=== PATIENT | male | born 1935 | race Caucasian/White ===

== ENCOUNTER 2016-12-07 14:36 | Inpatient (IN) | payer MEDICARE, BC ==
[2016-12-07] MEDS ORDERED: NORMAL SALINE 500 ML IV ONE (14:49)
--- NOTE | 2016-12-07 14:49 | ER Document Report ---
ED Medical Screen (RME) - General Stated Complaint: ABDOMINAL PAIN Notes: onset: Sunday night Admits to abdominal pain and distension with heart burn and emesis. Denies hematemesis or hematochezia. Constant pressure Last BM: this AM, normal, soft. denies BRBPR, dark stool bowel sounds present, firm abdomen and tender without rebound tenderness PMH: a fib, HTN, CKD, DM, diverticulitis colonscopy over 5 years ago that was normal I have greeted and performed a rapid initial assessment of this patient. A comprehensive ED assessment and evaluation of the patient, analysis of test results and completion of the medical decision making process will be conducted by additional ED providers. TRAVEL OUTSIDE OF THE [place] IN LAST 30 DAYS: No - Related Data Allergies/Adverse Reactions: enalapril maleate [From Vasotec] Allergy (Unknown, Verified 06/24/14 08:20) hydrochlorothiazide [Hydrochlorothiazide] Allergy (Unknown, Verified 06/24/14 08 :20) meperidine HCl [From Demerol] Allergy (Unknown, Verified 06/24/14 08:20) niacin [Niacin] Allergy (Unknown, Verified 06/24/14 08:20) nisoldipine [From Sular] Allergy (Unknown, Verified 06/24/14 08:20) ramolazme Allergy (Unknown, Uncoded 06/24/14 08:20) Past Medical History - Past Medical History Cardiac Medical History: Reports: Hx Atrial Fibrillation, Hx Hypercholesterolemia, Hx Hypertension Denies: Hx Coronary Artery Disease, Hx Heart Attack Pulmonary Medical History: Reports: Hx Bronchitis Denies: Hx Asthma, Hx COPD, Hx Pneumonia, Hx Tuberculosis Neurological Medical History: Denies: Hx Cerebrovascular Accident, Hx Seizures Endocrine Medical History: Reports: Hx Diabetes Mellitus Type 2 - BORDERLINE GI Medical History: Reports: Hx Diverticulitis Musculoskeltal Medical History: Reports Hx Arthritis Past Surgical History: Reports: Hx Cardiac Catheterization - 2x stents, Hx Cardiac Surgery - pacemaker, Hx Cholecystectomy, Hx Coronary Stent, Hx Pacemaker - Immunizations Hx Diphtheria, Pertussis, Tetanus Vaccination: No - UNSURE
[2016-12-07 15:30] LABS: ABSOLUTE LYMPHOCYTES (AUTO) 1.1 10^3/uL (0.5-4.7); ABSOLUTE MONOCYTES (AUTO) 1.2 10^3/uL (0.1-1.4); ABSOLUTE NEUT (AUTO) 9.6 10^3/uL (1.7-8.2); BASOPHILS % (AUTO) 0.3 % (0-2); EOSINOPHILS % (AUTO) 0.3 % (0-6); HEMATOCRIT 43.9 % (37.9-51.0); HEMOGLOBIN 14.8 g/dL (13.5-17.0); HGB HCT DIFFERENCE 0.5; LYMPHOCYTES % (AUTO) 9.4 % (13-45); MEAN CORPUSCULAR HEMOGLOBIN 29.3 pg (27.0-33.4); MEAN CORPUSCULAR HGB CONC 33.6 g/dL (32.0-36.0); MEAN CORPUSCULAR VOLUME 87 fl (80-97); MONOCYTES % (AUTO) 10.3 % (3-13); RED BLOOD COUNT 5.04 10^6/uL (4.35-5.55); RED CELL DISTRIBUTION WIDTH 15.3 % (11.5-14.0); SEGMENTED NEUTROPHILS % (AUTO) 79.7 % (42-78)
[2016-12-07 15:43] LABS: ALANINE AMINOTRANSFERASE 32 U/L (21-72); ALBUMIN 4.1 g/dL (3.5-5.0); ALKALINE PHOSPHATASE 133 U/L (38-126); ANION GAP 13 (5-19); ASPARTATE AMINO TRANSFERASE 40 U/L (17-59); BILIRUBIN,TOTAL 1.4 mg/dL (0.2-1.3); BLOOD UREA NITROGEN 33 mg/dL (7-20); CALCIUM 10.6 mg/dL (8.4-10.2); CARBON DIOXIDE 26 mmol/L (22-30); CHLORIDE 95 mmol/L (98-107); CREATININE RESULT 1.17 mg/dL (0.52-1.25); GLUCOSE 137 mg/dL (75-110); LIPASE 874.1 U/L (23-300); POTASSIUM 4.8 mmol/L (3.6-5.0); SODIUM 134.4 mmol/L (137-145); TOTAL PROTEIN 7.7 g/dL (6.3-8.2)
--- NOTE | 2016-12-07 15:50 | ER Document Report ---
ED GI/ - General Mode of Arrival: Ambulatory Information source: Patient TRAVEL OUTSIDE OF THE [place] IN LAST 30 DAYS: No - HPI Patient complains to provider of: Other - see narrative <CARLA GUAMAN - Last Filed: 12/07/16 22:35> <GORDON CONN - Last Filed: 12/13/16 22:41> - General Chief Complaint: Abdominal Pain Stated Complaint: ABDOMINAL PAIN Notes: Patient is an 81-year-old male that presents to the emergency department today with complaints of abdominal pain. Patient states his pain began 2 nights ago after dinner. Patient states the pain has been constant since it's onset and has been increasing in severity. Patient has a decreased appetite. Patient states he has had increasing abdominal distension along with nausea, vomiting, and chills but denies any fevers. (CARLA GUAMAN) - Related Data Allergies/Adverse Reactions: enalapril maleate [From Vasotec] Allergy (Unknown, Verified 12/08/16 00:36) meperidine HCl [From Demerol] Allergy (Unknown, Verified 12/08/16 00:36) niacin [Niacin] Allergy (Unknown, Verified 12/07/16 14:45) nisoldipine [From Sular] Allergy (Unknown, Verified 12/07/16 14:45) ramolazme Allergy (Unknown, Uncoded 12/07/16 14:45) Home Medications: Current Home Medications Finasteride [Proscar 5 mg Tablet] 5 mg PO DAILY 12/07/16 [History] Metoprolol Tartrate [Lopressor 100 mg Tablet] 100 mg PO BID 12/07/16 [History] Valsartan/Hydrochlorothiazide [Diovan Hct 160-12.5 mg Tab] 0.5 tab PO DAILY 06/17 [History] Warfarin Sodium [Coumadin 5 mg Tablet] 5 mg PO SUMOTUTHFRSA 12/07/16 [History] Warfarin Sodium [Coumadin 7.5 mg Tablet] 7.5 mg PO WE 12/07/16 [History] Aspirin [Aspirin EC] 81 mg PO DAILY 12/08/16 [History] Atorvastatin Calcium [Lipitor 20 mg Tablet] 20 mg PO QHS 12/08/16 [History] Digoxin [Lanoxin 0.125 mg Tablet] 0.125 mg PO DAILY 12/08/16 [History] Omeprazole 20 mg PO DAILYP PRN 12/08/16 [History] Potassium Chloride 10 meq PO DAILY 12/08/16 [History] Past Medical History - General Information source: Patient - Social History Smoking Status: Never Smoker Cigarette use (# per day): No Chew tobacco use (# tins/day): No Frequency of alcohol use: None Drug Abuse: None Lives with: Family Family History: Reviewed & Not Pertinent Patient has suicidal ideation: No Patient has homicidal ideation: No - Past Medical History Cardiac Medical History: Reports: Hx Atrial Fibrillation, Hx Hypercholesterolemia, Hx Hypertension Pulmonary Medical History: Reports: Hx Bronchitis Endocrine Medical History: Reports: Hx Diabetes Mellitus Type 2 - BORDERLINE GI Medical History: Reports: Hx Diverticulitis Musculoskeltal Medical History: Reports Hx Arthritis Past Surgical History: Reports: Hx Cardiac Catheterization - 2x stents, Hx Cardiac Surgery - pacemaker, Hx Cholecystectomy, Hx Coronary Stent, Hx Pacemaker - Immunizations Hx Diphtheria, Pertussis, Tetanus Vaccination: No - UNSURE Hx Pneumococcal Vaccination: 07/01/11 <CARLA GUAMAN - Last Filed: 12/07/16 22:35> Review of Systems - Review of Systems Constitutional: See HPI, Fever EENT: No symptoms reported Cardiovascular: No symptoms reported Respiratory: No symptoms reported Gastrointestinal: See HPI, Abdomen distended, Abdominal pain, Nausea, Vomiting Genitourinary: No symptoms reported Male Genitourinary: No symptoms reported Musculoskeletal: No symptoms reported Skin: No symptoms reported Hematologic/Lymphatic: No symptoms reported Neurological/Psychological: No symptoms reported -: Yes All other systems reviewed and negative <CARLA GUAMAN - Last Filed: 12/07/16 22:35> Physical Exam - General General appearance: Appears well, Alert In distress: None - HEENT Head: Normocephalic, Atraumatic Eyes: Normal Conjunctiva: Normal Extraocular movements intact: Yes - Respiratory Respiratory status: No respiratory distress Chest status: Nontender Breath sounds: Normal Chest palpation: Normal - Cardiovascular Rhythm: Regular Heart sounds: Normal auscultation Murmur: No - Abdominal Inspection: Healed incision Distension: Distended Bowel sounds: Hypoactive - Extremities General upper extremity: Normal inspection, Normal ROM. No: Edema General lower extremity: Normal inspection, Normal ROM. No: Edema - Neurological Neuro grossly intact: Yes Cognition: Normal Orientation: AAOx4 Speech: Normal - Psychological Associated symptoms: Normal affect, Normal mood - Skin Skin Temperature: Warm Skin Moisture: Dry Skin Color: Normal <CARLA GUAMAN - Last Filed: 12/07/16 22:35> Course - Laboratory Result Diagrams: 12/07/16 15:00 12/07/16 15:00 <CARLA GUAMAN - Last Filed: 12/07/16 22:35> - Laboratory Result Diagrams: 12/12/16 04:04 12/12/16 04:04 <GORDON CONN - Last Filed: 12/13/16 22:41> - Re-evaluation Re-evalutation: 12/07/16 17:20 I personally performed the services described in the documentation, reviewed and edited the documentation which was dictated to my scribe in my presence, and it accurately records my words and actions. presents to the emergency department with a chief complaint of abdominal distention pain and vomiting unable to keep anything down for 2 days. He had a portion of his colon removed from diverticulitis back in 2002 otherwise he's had a gallbladder removal. Never had a mild suction before on examination he's distended decreased bowel sounds to absent tympanic acute bowel obstruction on x -ray. Troponin G-tube fluids pain medication talk to surgery Dr. Garber at [phone]. He states to get a CAT scan and call him back on the results are back. 12/07/16 19:[address] Garber [place] [address] results states admit him for bowel pain bowel shocks of pancreatitis to medicine and he will be on consultation. Patient is had about a liter of fluids out of his NG tube, pain and nausea is better controlled Dr Boyce contacted at 191 accepted patient at 20:13 12/07/16 20:13 (GORDON CONN) - Vital Signs Vital signs: Temp Pulse Resp BP Pulse Ox 97.5 F 81 18 136/56 H 99 12/13/16 14:51 12/13/16 14:51 12/13/16 14:51 12/13/16 14:51 12/13/16 14:51 - Laboratory Laboratory results interpreted by me: 12/07/16 12/07/16 12/07/16 15:00 15:00 15:05 WBC 12.0 H RDW 15.3 H Seg Neutrophils % 79.7 H Lymphocytes % 9.4 L Absolute Neutrophils 9.6 H Sodium 134.4 L Chloride 95 L BUN 33 H Glucose 137 H Calcium 10.6 H Total Bilirubin 1.4 H Alkaline Phosphatase 133 H Lipase 874.1 H Urine Protein >=500 H Urine Bilirubin SMALL H Urine Urobilinogen 2.0 H Critical Care Note - Critical Care Note Total time excluding time spent on procedures (mins): 45 <GORDON CONN - Last Filed: 12/13/16 22:41> Discharge <CARLA GUAMAN - Last Filed: 12/07/16 22:35> - Discharge Admitting Provider: Hospitalist Unit Admitted: [facility] <GORDON CONN - Last Filed: 12/13/16 22:41> - Discharge Clinical Impression: Acute pancreatitis, acute bowel obstruction Condition: Stable Disposition: ADMITTED INPATIENT Scribe Documentation - Scribe Written by Valencia:: Valencia Vitale, 12/07/2016 2258 acting as scribe for :: [place] <CARLA GUAMAN - Last Filed: 12/07/16 22:35>
[2016-12-07 16:22] LABS: APPEARANCE,URINE SLIGHTLY-CLOUDY; BILIRUBIN,URINE SMALL (NEGATIVE); GLUCOSE, URINE NEGATIVE (NEGATIVE); KETONES,URINE NEGATIVE (NEGATIVE); LEUKOCYTE ESTERASE,URINE NEGATIVE (NEGATIVE); NITRITE,URINE NEGATIVE (NEGATIVE); PROTEIN,URINE >=500 mg/dL (NEGATIVE); URINE SPECIFIC GRAVITY 1.027
[2016-12-07] MEDS ORDERED: FENTANYL CITRATE INJ/PF 100 MCG/2 ML AMPUL IV ONE (17:18)
[2016-12-07] MEDS ORDERED: NORMAL SALINE 1000 ML 500 ML IV ONE (17:18)
--- NOTE | 2016-12-07 19:45 | PDOC CONSULTATION ---
Consultation Consult Date: 12/07/16 Consult reason:: Abdominal pain History of Present Illness Admission Date/PCP: AMBER DIANE, History of Present Illness: ROHIT [place] MIRELA is a 81 year old male Presenting with 2 day history of diffuse epigastric abdominal pain that has been worsening followed by abdominal distention with multiple episodes of nausea and vomiting. Patient had a small bowel movement today. Does not think he has been passing any gas today. Denies any prior history of this sort of pain in the past. He denies any alcohol abuse he has had the cholecystectomy in the remote past. He does have a history of hypertriglyceridemia. No history of trauma. Patient does have a history of partial colon resection for diverticulitis in the remote past as well as cholecystectomy in the remote past. Patient does have atrial fibrillation and he is on a pacemaker. He is on chronic Coumadin therapy. No history of thromboembolic disease however. Past Medical History Cardiac Medical History: Reports: Atrial Fibrillation, Hyperlipidema, Hypertension Denies: Coronary Artery Disease, Myocardial Infarction Pulmonary Medical History: Reports: Bronchitis Denies: Asthma, Chronic Obstructive Pulmonary Disease (COPD), Pneumonia, Tuberculosis Neurological Medical History: Denies: Seizures Endocrine Medical History: Reports: Diabetes Mellitus Type 2 - BORDERLINE GI Medical History: Reports: Diverticulitis, Gastroesophageal Reflux Disease Musculoskeltal Medical History: Reports: Arthritis Hematology: Denies: Anemia Past Surgical History Past Surgical History: Reports: Cardiac Catheterization - 2x stents, Cholecystectomy, Coronary Stent, Pacemaker Social History Smoking Status: Never Smoker Frequency of Alcohol Use: None Hx Recreational Drug Use: No Hx Prescription Drug Abuse: No Family History Family History: Reviewed & Not Pertinent Parental Family History Reviewed: No Children Family History Reviewed: No Sibling(s) Family History Reviewed.: No Medication/Allergy Home Medications: Finasteride [Proscar 5 mg Tablet] 5 mg PO DAILY 12/07/16 Metoprolol Tartrate [Lopressor 100 mg Tablet] 100 mg PO BID 12/07/16 Valsartan/Hydrochlorothiazide [Diovan Hct 160-12.5 mg Tab] 1 tab PO DAILY Allergies/Adverse Reactions: enalapril maleate [From Vasotec] Allergy (Unknown, Verified 12/07/16 14:45) hydrochlorothiazide [Hydrochlorothiazide] Allergy (Unknown, Verified 12/07/16 14 :45) meperidine HCl [From Demerol] Allergy (Unknown, Verified 12/07/16 14:45) niacin [Niacin] Allergy (Unknown, Verified 12/07/16 14:45) nisoldipine [From Sular] Allergy (Unknown, Verified 12/07/16 14:45) ramolazme Allergy (Unknown, Uncoded 12/07/16 14:45) Physical Exam Vital Signs: Intake & Output 12/06/16 12/07/16 12/08/16 06:59 06:59 06:59 Output Total 250 Balance -250 Weight 77.9 kg General appearance: PRESENT: no acute distress, cooperative Respiratory exam: PRESENT: clear to auscultation catherine Cardiovascular exam: PRESENT: RRR GI/Abdominal exam: PRESENT: other - Soft, distended, diffuse upper abdominal tenderness without peritoneal signs. Markedly diminished bowel sounds. Extremities exam: PRESENT: other - No swelling no tenderness. Results Laboratory Results: 12/07/16 15:00 12/07/16 15:00 12/07/16 12/07/16 12/07/16 15:00 15:00 15:05 WBC 12.0 H RBC 5.04 Hgb 14.8 Hct 43.9 MCV 87 MCH 29.3 MCHC 33.6 RDW 15.3 H Plt Count 254 Seg Neutrophils % 79.7 H Lymphocytes % 9.4 L Monocytes % 10.3 Eosinophils % 0.3 Basophils % 0.3 Absolute Neutrophils 9.6 H Absolute Lymphocytes 1.1 Absolute Monocytes 1.2 Absolute Eosinophils 0.0 Absolute Basophils 0.0 Sodium 134.4 L Potassium 4.8 Chloride 95 L Carbon Dioxide 26 Anion Gap 13 BUN 33 H Creatinine 1.17 Est GFR ( Amer) > 60 Est GFR (Non-Af Amer) > 60 Glucose 137 H Calcium 10.6 H Total Bilirubin 1.4 H AST 40 ALT 32 Alkaline Phosphatase 133 H Total Protein 7.7 Albumin 4.1 Lipase 874.1 H Urine Color DARK YELLOW Urine Appearance SLIGHTLY-CLOUDY Urine pH 5.0 Ur Specific [place] 1.027 Urine Protein >=500 H Urine Glucose (UA) NEGATIVE Urine Ketones NEGATIVE Urine Blood NEGATIVE Urine Nitrite NEGATIVE Ur Leukocyte Esterase NEGATIVE Urine WBC (Auto) 2 Urine RBC (Auto) 2 Impressions: KUB X-Ray 12/07/16 00:00 IMPRESSION: NASOGASTRIC TUBE WITH THE TIP IN THE STOMACH. Acute Abdomen Series 12/07/16 14:49 IMPRESSION: Findings consistent with a small bowel obstruction. Small right pleural effusion is identified and I cannot exclude some associated atelectasis or infiltrate in the right lung base. Other findings as noted above Abdomen/Pelvis CT 12/07/16 17:22 IMPRESSION: Findings consistent with a small bowel obstruction as noted above. A tiny amount of perihepatic and perisplenic ascitic fluid is identified and a small amount of ascitic fluid is identified in the pelvis an small right inguinal hernia. There are more normal caliber distal small bowel loops without a definite transition point being identified. Other findings as noted above Assessment & Plan - Diagnosis (1) Pancreatitis Qualifiers: Chronicity: acute Is this a current diagnosis for this admission?: YesPlan: Likely pancreatitis with associated ileus. Likely due to hypertriglyceridemia. Lack of oral contrast makes the CT scan difficult to interpret for possible bowel obstruction. Recommend admission to the medical service for IV fluids, pain control and pancreatic rest. General surgery will follow along. If the patient does not make progress in the next couple days will consider repeat scan with oral contrast. Encourage activity.
[2016-12-07] MEDS ORDERED: NORMAL SALINE 1000 ML 2,000 ML IV ONE (22:10)
[2016-12-07] MEDS ORDERED: ACETAMINOPHEN 650 MG SUPP.RECT PR PRN (22:28)
[2016-12-07] MEDS ORDERED: PHARMACY COMMUNICATION ORDER MC NR (22:30)
[2016-12-07] MEDS ORDERED: PROMETHAZINE HCL INJ 25 MG/1 ML VIAL IV PRN (22:35)
[2016-12-07] MEDS ORDERED: MORPHINE SULFATE 10 MG/ML INJ IV PRN (22:36)
[2016-12-07] MEDS ORDERED: GLUCAGON,HUMAN RECOMB 1 MG INJ IM PRN (22:40)
[2016-12-07] MEDS ORDERED: DEXTROSE 40% GEL 15 GM TUBE NG PRN ×2 (22:40)
[2016-12-07] MEDS ORDERED: DEXTROSE 50%-WATER 25 GM/50 ML DISP.SYRIN IV PRN ×2 (22:40)
[2016-12-07] MEDS ORDERED: INSULIN LISPRO 100 UNIT/ML 3 ML VIAL SUBCUT PRN (22:40)
--- NOTE | 2016-12-07 22:52 | PDOC H&P ---
History of Present Illness Admission Date/PCP: 12/07/16 20:45 Dr. Mercy NIELSEN Patient complains of: abd pain, n/v History of Present Illness: 81-year-old male, with underlying congestive heart failure, uncertain if systolic and/or diastolic, along with chronic atrial fibrillation, on chronic Coumadin for same, hypertension, borderline diabetes mellitus, and arthritis, who presents to the emergency room for evaluation of approximately 36 hour history of intermittent at times pronounced cramping diffuse abdominal pain. Worse with virtually any by mouth intake. Positive nausea and vomiting, without blood or coffee grounds emesis. Small bowel movement earlier this morning. No flatus for the past 24 hours. No fever. Occasional chills, but states this is not unusual for him. No chest pain. Prior abdominal surgery includes segmental colon resection for diverticulitis, along with cholecystectomy. Has never had NG tube placed before. Patient has been discussed with emergency room physician who evaluated the patient. Nasogastric tube placed by emergency room physician. Already more than 1 L of cloudy bilious fluid suctioned. Patient states he's feeling a bit better, with cramping abdominal pain much decreased. Has been seen by surgery already; note reviewed.. Review of my in-hospital control tower radio operator phone reveals call was placed at 7:13 PM by emergency room physician, during evening checkout rounds with day hospitalist team. Call back to ER physician placed at 7:34 PM. No answer. Message was left with emergency room wine steward/stewardess to please notify emergency room physician I had attempted to contact her, per my usual protocol. I first spoke with emergency room physician about this patient at 8:11 PM. Laboratory results are listed in [facility] and are reviewed. X-ray summary results are listed below, with full report(s) reviewed. . Social history/personal habits: . Lives with . Retired. Has children. No use of tobacco alcohol or illicit drugs. Allergies/adverse reactions are listed in [facility] and are reviewed. Home medications are reviewed by discussion with patient and are to be reconciled by nursing staff in [facility]. Home medications initially autopopulated into [facility] may not accurately reflect patient's true medications, dosages, and/or frequencies. Unfortunately, patient uncertain of all his medications/dosages/frequencies. Order has been entered for staff to contact family, outpatient physician, and/ or pharmacy to more accurately determine medications, dosages, and frequencies and to contact physician when that has been accomplished. REVIEW OF SYSTEMS: Constitutional: See history and present illness. Eyes: Wears glasses. ENT: No swallowing problems or complaints. Partial hearing loss. Pulmonary: No current complaints. Cardiovascular: No current complaints, including chest pain. Gastrointestinal: See history and present illness. Skin: No current complaints, including rashes. Hematologic: Easy bruising. Neurologic: No current complaints, including numbness or tingling. Musculoskeletal: Joint pain from arthritis. Psychiatric: No current complaints, including anxiety or depression. Endocrine: No current complaints, including polyuria. Genitourinary: No current complaints, including dysuria. PHYSICAL EXAMINATION: 5 feet 9 inches tall. 77.9 kg. BMI 25.4 kg/m. Temperature not recorded on chart; skin feels normothermic. Blood pressure 125/54. Pulse 60 and regular. 95% saturation on room air. Respirations are 18 and unlabored. Well-nourished well-developed elderly male appearing a bit younger than his stated age. Pleasant awake alert and cooperative. No obvious distress other than perhaps mildly anxious. Skin is warm and dry. No grossly obvious evidence of rash in areas of skin examined. No subcutaneous nodules palpated. ENT: Hearing grossly normal Mildly hard of hearing to normal conversation. Tongue midline on protrusion pink and slightly tacky. Nasogastric tube is in place, having drained just over 1 L of cloudy bilious material. No obvious blood or coffee ground material. Eyes: No scleral icterus. Pupils equal and reactive to light at 4 mm. Falkner conjunctivae. Neck is supple and nontender to gentle active range of motion and palpation. Midline trachea. No palpable thyroid nodule mass enlargement or tenderness. Lymphatic: No palpable cervical or clavicular nodes. Neck and lymphatic exams limited by patient body habitus. Psychiatric: Reasonable insight into acute and chronic medical issues. Oriented to time location and why here. Lungs: Auscultation reveals clear and equal breath sounds bilaterally. No use of accessory respiratory muscles. Cardiovascular: Heart regular rate and rhythm, without gallop murmur or rub. No carotid or abdominal aortic bruits. No ankle or pedal edema. Faintly palpable dorsalis pedis pulses. Abdomen: soft, , somewhat distended with positive bowel sounds. Unable to adequately evaluate abdomen for masses or organomegaly due to distention. Scant abdominal discomfort to palpation. Certainly no evidence of guarding or peritoneal signs. Extremities: Feet are warm and dry. No calf tenderness to compression. No grossly obvious visual evidence of calf swelling. Gentle manipulation of lower extremities fails to reveal any obvious evidence of injury or instability to knees hips or ankles. Neurologic: Moves upper extremities grossly normally. Patellar reflexes absent. Absent Babinski. Light touch is intact at feet. Dorsiflexion and plantarflexion of feet 5 / 5 and symmetric. Past Medical History Cardiac Medical History: Reports: Atrial Fibrillation, Hyperlipidema, Hypertension Denies: Coronary Artery Disease, DVT, Myocardial Infarction, Pulmonary Embolism Pulmonary Medical History: Reports: Bronchitis Denies: Asthma, Chronic Obstructive Pulmonary Disease (COPD), Pneumonia, Tuberculosis Neurological Medical History: Denies: Hemorrhagic CVA, Ischemic CVA, Seizures Endocrine Medical History: Reports: Diabetes Mellitus Type 2 - BORDERLINE Denies: Diabetes Mellitus Type 1, Hyperthyroidism, Hypothyroidism Renal/ Medical History: Reports: Other - Occasional "kidney problems," according to patient. GI Medical History: Reports: Diverticulitis - Segmental colectomy for same., Gastroesophageal Reflux Disease Denies: Cirrhosis, Hepatitis, Peptic Ulcer Disease Musculoskeltal Medical History: Reports: Arthritis Psychiatric Medical History: Denies: Alcohol Dependency, Depression, General Anxiety Disorder, Substance Abuse, Tobacco Dependency Hematology: Reports: Other - Easy bruising Denies: Anemia Infectious Medical History: Denies: Hepatitis B, Hepatitis C Past Surgical History Past Surgical History: Reports: Cardiac Catheterization - 2x stents, Cholecystectomy, Coronary Stent, Pacemaker, Other - Segmental colectomy for diverticulitis Social History Information Source: Patient, Emergency Med Personnel, [facility] Records Lives with: Spouse/Significant other Smoking Status: Never Smoker Frequency of Alcohol Use: None Hx Recreational Drug Use: No Hx Prescription Drug Abuse: No - Advance Directive Resuscitation Status: Full Code Surrogate healthcare decision maker:: Family History Family History: Reviewed & Not Pertinent Parental Family History Reviewed: Yes Children Family History Reviewed: Yes Sibling(s) Family History Reviewed.: Yes Medication/Allergy Home Medications: RX: Finasteride [Proscar 5 mg Tablet] 5 mg PO DAILY 12/07/16 RX: Metoprolol Tartrate [Lopressor 100 mg Tablet] 100 mg PO BID 12/07/16 RX: Valsartan/Hydrochlorothiazide [Diovan Hct 160-12.5 mg Tab] 0.5 tab PO DAILY 12/07/16 RX: Warfarin Sodium [Coumadin 5 mg Tablet] 5 mg PO SUMOTUTHFRSA 12/07/16 RX: Warfarin Sodium [Coumadin 7.5 mg Tablet] 7.5 mg PO WE 12/07/16 RX: Aspirin [Aspirin EC] 81 mg PO DAILY 12/08/16 RX: Atorvastatin Calcium [Lipitor 20 mg Tablet] 20 mg PO QHS 12/08/16 RX: Digoxin [Lanoxin 0.125 mg Tablet] 0.125 mg PO DAILY 12/08/16 RX: Omeprazole 20 mg PO DAILYP PRN 12/08/16 RX: Potassium Chloride 10 meq PO DAILY 12/08/16 Allergies/Adverse Reactions: enalapril maleate [From Vasotec] Allergy (Unknown, Verified 12/08/16 00:36) meperidine HCl [From Demerol] Allergy (Unknown, Verified 12/08/16 00:36) niacin [Niacin] Allergy (Unknown, Verified 12/07/16 14:45) nisoldipine [From Sular] Allergy (Unknown, Verified 12/07/16 14:45) ramolazme Allergy (Unknown, Uncoded 12/07/16 14:45) Physical Exam Vital Signs: Temp Pulse Resp BP Pulse Ox 18 125/54 L 97 12/07/16 21:01 12/07/16 21:01 12/07/16 21:01 Results Impressions: KUB X-Ray 12/07/16 00:00 IMPRESSION: NASOGASTRIC TUBE WITH THE TIP IN THE STOMACH. Acute Abdomen Series 12/07/16 14:49 IMPRESSION: Findings consistent with a small bowel obstruction. Small right pleural effusion is identified and I cannot exclude some associated atelectasis or infiltrate in the right lung base. Other findings as noted above Abdomen/Pelvis CT 12/07/16 17:22 IMPRESSION: Findings consistent with a small bowel obstruction as noted above. A tiny amount of perihepatic and perisplenic ascitic fluid is identified and a small amount of ascitic fluid is identified in the pelvis an small right inguinal hernia. There are more normal caliber distal small bowel loops without a definite transition point being identified. Other findings as noted above Assessment & Plan - Diagnosis (1) Elevated LFTs Is this a current diagnosis for this admission?: YesPlan: Follow-up chemistry. Denies underlying chronic biliary disease. (2) SBO (small bowel obstruction) Is this a current diagnosis for this admission?: YesPlan: Has been seen by surgery, who will follow. Nasogastric tube. Vigorous IV fluid hydration. Strict intake and output. Ice chips. IV Pepcid for gastritis prophylaxis. When necessary medications for pain and nausea and vomiting. I have strongly encouraged patient not to get out of bed without notifying staff , to avoid a fall with injury. Knee high SCDs for DVT prophylaxis; with patient on Coumadin, will forego Lovenox or heparin at this point in time. Impression and plans were discussed with patient, who concurs. Time spent in evaluation and management of patient: 65 minutes. (3) Anticoagulated Is this a current diagnosis for this admission?: YesPlan: PT/INR pending. May need to proceed with parenteral anticoagulation. (4) Atrial fibrillation Qualifiers: Atrial fibrillation type: chronic Qualified Code(s): I48.2 - Chronic atrial fibrillation Is this a current diagnosis for this admission?: YesPlan: Resume home medications as appropriate once these have been determined and reviewed. (5) Congestive heart failure (CHF) Qualifiers: Congestive heart failure type: unspecified congestive heart failure type Congestive heart failure chronicity: chronic Qualified Code(s): I50.9 - Heart failure, unspecified Is this a current diagnosis for this admission?: YesPlan: No evidence of exacerbation of same.Resume home medications as appropriate once these have been determined and reviewed. Parenteral medications as necessary. (6) Hypertension Qualifiers: Hypertension type: essential hypertension Qualified Code(s): I10 - Essential (primary) hypertension Is this a current diagnosis for this admission?: YesPlan: Resume home medications as appropriate once these have been determined and reviewed. Parenteral medications if necessary. - Inpatient Certification Based on my medical assessment, after consideration of the patient's comorbidities, presenting symptoms, or acuity I expect that the services needed warrant INPATIENT care.: Yes I certify that my determination is in accordance with my understanding of Medicare's requirements for reasonable and necessary INPATIENT services [42 CFR 412.3e].: Yes Medical Necessity: Need Close Monitoring Due to Risk of Patient Decompensation, Need For IV Fluids, Need For Continuous Telemetry Monitoring, Risk of Complication if Not Cared For in Hospital, Risk of Diagnosis Which Will Require Inpatient Eval/Care/Monitoring Post Hospital Care: D/C or Transfer Summary
[2016-12-08 00:01] LABS: ANION GAP 13 (5-19); BLOOD UREA NITROGEN 33 mg/dL (7-20); CALCIUM 9.9 mg/dL (8.4-10.2); CARBON DIOXIDE 24 mmol/L (22-30); CHLORIDE 101 mmol/L (98-107); CREATININE RESULT 1.04 mg/dL (0.52-1.25); GLUCOSE 114 mg/dL (75-110); PARTIAL THROMBOPLASTIN TIME 44.6 SEC (23.5-35.8); POTASSIUM 4.7 mmol/L (3.6-5.0); SODIUM 137.6 mmol/L (137-145)
[2016-12-08] MEDS: NORMAL SALINE 1000 ML 1,000 ML IV PRN ×5 (00:46→19:33)
[2016-12-08 06:59] LABS: ABSOLUTE EOSINOPHILS # (AUTO) 0.1 10^3/uL (0.0-0.6); ABSOLUTE LYMPHOCYTES (AUTO) 0.9 10^3/uL (0.5-4.7); ABSOLUTE MONOCYTES (AUTO) 0.8 10^3/uL (0.1-1.4); ABSOLUTE NEUT (AUTO) 4.1 10^3/uL (1.7-8.2); BASOPHILS % (AUTO) 0.2 % (0-2); EOSINOPHILS % (AUTO) 0.9 % (0-6); HEMATOCRIT 37.5 % (37.9-51.0); HEMOGLOBIN 12.8 g/dL (13.5-17.0); HGB HCT DIFFERENCE 0.9; LYMPHOCYTES % (AUTO) 15.5 % (13-45); MEAN CORPUSCULAR HEMOGLOBIN 29.6 pg (27.0-33.4); MEAN CORPUSCULAR HGB CONC 34.1 g/dL (32.0-36.0); MEAN CORPUSCULAR VOLUME 87 fl (80-97); MONOCYTES % (AUTO) 13.7 % (3-13); RED BLOOD COUNT 4.31 10^6/uL (4.35-5.55); RED CELL DISTRIBUTION WIDTH 15.6 % (11.5-14.0); SEGMENTED NEUTROPHILS % (AUTO) 69.7 % (42-78); WHITE BLOOD COUNT 5.9 10^3/uL (4.0-10.5)
[2016-12-08 07:06] LABS: PROTHROMBIN TIME 37.4 SEC (11.4-15.4)
[2016-12-08 07:17] LABS: ALANINE AMINOTRANSFERASE 40 U/L (21-72); ALBUMIN 2.9 g/dL (3.5-5.0); ALKALINE PHOSPHATASE 113 U/L (38-126); ANION GAP 9 (5-19); ASPARTATE AMINO TRANSFERASE 32 U/L (17-59); BILIRUBIN,TOTAL 0.7 mg/dL (0.2-1.3); BLOOD UREA NITROGEN 27 mg/dL (7-20); CALCIUM 8.8 mg/dL (8.4-10.2); CARBON DIOXIDE 21 mmol/L (22-30); CHLORIDE 107 mmol/L (98-107); GLUCOSE 98 mg/dL (75-110); POTASSIUM 4.1 mmol/L (3.6-5.0); SODIUM 137.4 mmol/L (137-145); TOTAL PROTEIN 5.8 g/dL (6.3-8.2)
[2016-12-08] MEDS: ENOXAPARIN SODIUM INJ 40 MG/0.4 ML DISP.SYRIN SUBCUT SCH (09:34)
[2016-12-08] MEDS ORDERED: FAMOTIDINE INJ/PF 20 MG/2 ML SDV IV SCH (10:00)
[2016-12-08] MEDS ORDERED: METOPROLOL TARTRATE PF/INJ 5 MG/5 ML SDV IV SCH (10:00)
--- NOTE | 2016-12-08 11:27 | PDOC PROGRESS REPORT ---
Subjective Progress Note for:: 12/08/16 Subjective:: FEELING BETTER PASSED FLATUS Physical Exam Vital Signs: Temp Pulse Resp BP Pulse Ox 97.5 F 127 H 20 144/57 H 97 12/08/16 07:55 12/08/16 07:55 12/08/16 07:55 12/08/16 07:55 12/08/16 07:55 Intake & Output 12/07/16 12/08/16 12/09/16 06:59 06:59 06:59 Intake Total 2701 Output Total 835 Balance 1866 Weight 81.6 kg GI/Abdominal exam: PRESENT: other - Abdomen - soft, nontender no distention , non tender, Results Laboratory Results: 12/08/16 06:49 12/08/16 06:49 12/07/16 12/08/16 12/08/16 23:30 06:49 06:49 WBC 5.9 RBC 4.31 L Hgb 12.8 L Hct 37.5 L MCV 87 MCH 29.6 MCHC 34.1 RDW 15.6 H Plt Count 191 Seg Neutrophils % 69.7 Lymphocytes % 15.5 Monocytes % 13.7 H Eosinophils % 0.9 Basophils % 0.2 Absolute Neutrophils 4.1 Absolute Lymphocytes 0.9 Absolute Monocytes 0.8 Absolute Eosinophils 0.1 Absolute Basophils 0.0 Sodium 137.6 137.4 Potassium 4.7 4.1 Chloride 101 107 Carbon Dioxide 24 21 L Anion Gap 13 9 BUN 33 H 27 H Creatinine 1.04 0.90 Est GFR ( Amer) > 60 > 60 Est GFR (Non-Af Amer) > 60 > 60 Glucose 114 H 98 Calcium 9.9 8.8 Total Bilirubin 0.7 AST 32 ALT 40 Alkaline Phosphatase 113 Total Protein 5.8 L Albumin 2.9 L Impressions: Acute Abdomen Series 12/07/16 14:49 IMPRESSION: Findings consistent with a small bowel obstruction. Small right pleural effusion is identified and I cannot exclude some associated atelectasis or infiltrate in the right lung base. Other findings as noted above Abdomen/Pelvis CT 12/07/16 17:22 IMPRESSION: Findings consistent with a small bowel obstruction as noted above. A tiny amount of perihepatic and perisplenic ascitic fluid is identified and a small amount of ascitic fluid is identified in the pelvis an small right inguinal hernia. There are more normal caliber distal small bowel loops without a definite transition point being identified. Other findings as noted above KUB X-Ray 12/07/16 22:32 IMPRESSION: THE TIP OF THE NASOGASTRIC TUBE IN THE STOMACH. Assessment & Plan - Plan Summary Plan Summary: Partial small bowel obstruction - resolving keep NG tube today
--- NOTE | 2016-12-08 13:52 | PDOC PROGRESS REPORT ---
Subjective Progress Note for:: 12/08/16 Subjective:: The patient was seen earlier today on rounds. Patient states that he feels remarkably better than when he came in overnight. The patient does admit to heartburn. The patient denies any nausea, vomiting, diarrhea, shortness of breath, dizziness, chest pain, heart palpitations, fevers, or chills. The patient has remained afebrile. Blood pressures have been in a good range. When prompted the patient voices no other concerns at this time. Review of systems: The rest of the review of systems is negative. Physical Exam Vital Signs: Temp Pulse Resp BP Pulse Ox 97.4 F 71 16 141/56 H 98 12/08/16 11:15 12/08/16 11:15 12/08/16 11:15 12/08/16 11:15 12/08/16 11:15 Intake & Output 12/06/16 12/07/16 12/08/16 23:59 23:59 23:59 Intake Total 2701 Output Total 835 Balance 1866 Weight 79.1 kg 81.6 kg General appearance: PRESENT: no acute distress, cooperative, well-developed, well-nourished Head exam: PRESENT: atraumatic, normocephalic Eye exam: PRESENT: conjunctiva pink, EOMI, PERRLA. ABSENT: scleral icterus Ear exam: PRESENT: normal external ear exam Mouth exam: PRESENT: moist, tongue midline Neck exam: ABSENT: carotid bruit, JVD, lymphadenopathy, thyromegaly Respiratory exam: PRESENT: clear to auscultation catherine, symmetrical, unlabored. ABSENT: rales, rhonchi, tachypnea, wheezes Cardiovascular exam: PRESENT: RRR. ABSENT: diastolic murmur, rubs, systolic murmur Pulses: PRESENT: normal dorsalis pedis pul Vascular exam: PRESENT: normal capillary refill GI/Abdominal exam: PRESENT: normal bowel sounds, soft. ABSENT: distended, guarding, mass, organolmegaly, rebound, tenderness Rectal exam: PRESENT: deferred Extremities exam: PRESENT: full ROM. ABSENT: calf tenderness, clubbing, pedal edema Neurological exam: PRESENT: alert, awake, oriented to person, oriented to place , oriented to time, oriented to situation, CN II-XII grossly intact. ABSENT: motor sensory deficit Psychiatric exam: PRESENT: appropriate affect, normal mood. ABSENT: homicidal ideation, suicidal ideation Skin exam: PRESENT: dry, intact, warm. ABSENT: cyanosis, rash Results Laboratory Results: 12/08/16 06:49 12/08/16 06:49 12/07/16 12/08/16 12/08/16 23:30 06:49 06:49 WBC 5.9 RBC 4.31 L Hgb 12.8 L Hct 37.5 L MCV 87 MCH 29.6 MCHC 34.1 RDW 15.6 H Plt Count 191 Seg Neutrophils % 69.7 Lymphocytes % 15.5 Monocytes % 13.7 H Eosinophils % 0.9 Basophils % 0.2 Absolute Neutrophils 4.1 Absolute Lymphocytes 0.9 Absolute Monocytes 0.8 Absolute Eosinophils 0.1 Absolute Basophils 0.0 Sodium 137.6 137.4 Potassium 4.7 4.1 Chloride 101 107 Carbon Dioxide 24 21 L Anion Gap 13 9 BUN 33 H 27 H Creatinine 1.04 0.90 Est GFR ( Amer) > 60 > 60 Est GFR (Non-Af Amer) > 60 > 60 Glucose 114 H 98 Calcium 9.9 8.8 Total Bilirubin 0.7 AST 32 ALT 40 Alkaline Phosphatase 113 Total Protein 5.8 L Albumin 2.9 L Impressions: Acute Abdomen Series 12/07/16 14:49 IMPRESSION: Findings consistent with a small bowel obstruction. Small right pleural effusion is identified and I cannot exclude some associated atelectasis or infiltrate in the right lung base. Other findings as noted above Abdomen/Pelvis CT 12/07/16 17:22 IMPRESSION: Findings consistent with a small bowel obstruction as noted above. A tiny amount of perihepatic and perisplenic ascitic fluid is identified and a small amount of ascitic fluid is identified in the pelvis an small right inguinal hernia. There are more normal caliber distal small bowel loops without a definite transition point being identified. Other findings as noted above KUB X-Ray 12/07/16 22:32 IMPRESSION: THE TIP OF THE NASOGASTRIC TUBE IN THE STOMACH. Assessment & Plan - Diagnosis (1) SBO (small bowel obstruction) Is this a current diagnosis for this admission?: YesPlan: Continue NG to low intermittent wall suction do appreciate surgery's input with this. Will address medications and substitute IV if possible. Maintain nothing by mouth status (2) Elevated lipase Is this a current diagnosis for this admission?: YesPlan: Denies any clinical symptoms for pancreatitis. No diagnostic imaging suggestive this. Not elevation lipase is most likely due to vomiting. (3) Elevated LFTs Is this a current diagnosis for this admission?: YesPlan: Bilirubin is normalized (4) Atrial fibrillation Qualifiers: Atrial fibrillation type: unspecified Qualified Code(s): I48.91 - Unspecified atrial fibrillation Is this a current diagnosis for this admission?: YesPlan: Currently in sinus will schedule IV Lopressor for rate control. To avoid rebounding. (5) Hypertension Qualifiers: Hypertension type: essential hypertension Qualified Code(s): I10 - Essential (primary) hypertension Is this a current diagnosis for this admission?: Yes (6) Pulmonary hypertension Is this a current diagnosis for this admission?: YesPlan: The patient appears optivolemic. (7) Anticoagulated Is this a current diagnosis for this admission?: YesPlan: Coumadin is on hold given the patient's nothing by mouth status and possibility of surgical intervention. The Lovenox for now - Time Time Spent with patient: 35 or more minutes Medications reviewed and adjusted accordingly: Yes
[2016-12-08] MEDS ORDERED: PANTOPRAZOLE SODIUM 40 MG VIAL IV ONE (14:15)
[2016-12-08] MEDS: METOPROLOL TARTRATE PF/INJ 5 MG/5 ML SDV IV SCH ×2 (17:40→23:27)
[2016-12-08] MEDS: PANTOPRAZOLE SODIUM 40 MG VIAL IV SCH (17:40)
[2016-12-08] MEDS: FAMOTIDINE INJ/PF 20 MG/2 ML SDV IV SCH (23:23)
[2016-12-09 05:05] LABS: ALANINE AMINOTRANSFERASE 36 U/L (21-72); ALBUMIN 2.7 g/dL (3.5-5.0); ALKALINE PHOSPHATASE 100 U/L (38-126); ANION GAP 9 (5-19); ASPARTATE AMINO TRANSFERASE 28 U/L (17-59); BILIRUBIN,TOTAL 0.8 mg/dL (0.2-1.3); BLOOD UREA NITROGEN 22 mg/dL (7-20); CALCIUM 8.6 mg/dL (8.4-10.2); CARBON DIOXIDE 20 mmol/L (22-30); CHLORIDE 110 mmol/L (98-107); CREATININE RESULT 0.89 mg/dL (0.52-1.25); GLUCOSE 73 mg/dL (75-110); LIPASE 436.8 U/L (23-300); POTASSIUM 4.1 mmol/L (3.6-5.0); SODIUM 138.5 mmol/L (137-145); TOTAL PROTEIN 5.4 g/dL (6.3-8.2)
[2016-12-09] MEDS: METOPROLOL TARTRATE PF/INJ 5 MG/5 ML SDV IV SCH ×4 (06:10→23:28)
[2016-12-09] MEDS: PANTOPRAZOLE SODIUM 40 MG VIAL IV SCH ×2 (06:17→18:43)
[2016-12-09] MEDS: NORMAL SALINE 1000 ML 1,000 ML IV PRN (06:21)
[2016-12-09] MEDS: ENOXAPARIN SODIUM INJ 40 MG/0.4 ML DISP.SYRIN SUBCUT SCH (08:11)
[2016-12-09] MEDS ORDERED: FUROSEMIDE INJ/PF 20 MG/2 ML SDV IV ONE (09:23)
[2016-12-09] MEDS: DIGOXIN INJ 0.5 MG/2 ML AMPULE IV SCH (10:04)
[2016-12-09] MEDS: DEXTROSE 5%-1/2 NORMAL SALINE 1,000 ML IV PRN ×2 (10:04→23:51)
[2016-12-09 11:14] LABS: PROTHROMBIN TIME 38.7 SEC (11.4-15.4)
[2016-12-09 11:40] LABS: ANION GAP 10 (5-19); BLOOD UREA NITROGEN 22 mg/dL (7-20); CALCIUM 9.1 mg/dL (8.4-10.2); CARBON DIOXIDE 23 mmol/L (22-30); CHLORIDE 108 mmol/L (98-107); GLUCOSE 91 mg/dL (75-110); POTASSIUM 4.4 mmol/L (3.6-5.0); SODIUM 141.2 mmol/L (137-145)
--- NOTE | 2016-12-09 12:25 | PDOC PROGRESS REPORT ---
Subjective Progress Note for:: 12/09/16 Subjective:: Patient complains of abdominal pain and shortness of breath. Patient denies chest pain, nausea, vomiting, fevers, chills, diarrhea, constipation, headache, new onset weakness. Physical Exam Vital Signs: Temp Pulse Resp BP Pulse Ox 98.1 F 69 16 152/64 H 97 12/09/16 03:25 12/09/16 03:25 12/09/16 03:25 12/09/16 03:25 12/09/16 03:25 Intake & Output 12/08/16 12/09/16 12/10/16 06:59 06:59 07:59 Intake Total 2701 3150 Output Total 835 2490 Balance 1866 660 Weight 81.6 kg 82.2 kg Exam: General: Awake alert and oriented x3, mild respiratory distress HEENT: AT/NC, PERRL, EOMI, oropharynx is moist, pink, no scleral icterus, no conjunctival injection Neck: +JVD, trachea midline Chest: Rales bilateral bases CV: Regular rate and rhythm, normal S1 and S2, no rub or gallop Abdomen: Soft, TTP diffusely, nondistended, active bowel sounds; no rebound, rigidity, or guarding Extremities: No cyanosis, clubbing; 2+edema to mid condon Neuro: Cranial nerves II through XII are grossly intact without focal deficits; awake alert and oriented x3 Psych: Normal mood and affect Results Laboratory Results: 12/08/16 06:49 12/09/16 04:26 12/09/16 04:26 Sodium 138.5 Potassium 4.1 Chloride 110 H Carbon Dioxide 20 L Anion Gap 9 BUN 22 H Creatinine 0.89 Est GFR ( Amer) > 60 Est GFR (Non-Af Amer) > 60 Glucose 73 L Calcium 8.6 Total Bilirubin 0.8 AST 28 ALT 36 Alkaline Phosphatase 100 Total Protein 5.4 L Albumin 2.7 L Lipase 436.8 H Impressions: Acute Abdomen Series 12/07/16 14:49 IMPRESSION: Findings consistent with a small bowel obstruction. Small right pleural effusion is identified and I cannot exclude some associated atelectasis or infiltrate in the right lung base. Other findings as noted above Abdomen/Pelvis CT 12/07/16 17:22 IMPRESSION: Findings consistent with a small bowel obstruction as noted above. A tiny amount of perihepatic and perisplenic ascitic fluid is identified and a small amount of ascitic fluid is identified in the pelvis an small right inguinal hernia. There are more normal caliber distal small bowel loops without a definite transition point being identified. Other findings as noted above KUB X-Ray 12/07/16 22:32 IMPRESSION: THE TIP OF THE NASOGASTRIC TUBE IN THE STOMACH. Assessment & Plan - Diagnosis (1) SBO (small bowel obstruction) Is this a current diagnosis for this admission?: YesPlan: Patient currently on NG with nothing by mouth status. Patient reports that he was passing flatus and had a bowel movement yesterday. Appreciate surgical input for this. Repeat KUB however does not reveal any improvement of his SBO. Patient has quite a bit of tenderness and with resolution I would expect all of this to resolve. Consider repeat CT of the abdomen. (2) Pulmonary hypertension Is this a current diagnosis for this admission?: Yes (3) Anticoagulated Is this a current diagnosis for this admission?: YesPlan: Have repeated PT/INR. Patient is currently not receiving his Coumadin, consider vitamin K if surgical need arises. (4) Atrial fibrillation Qualifiers: Atrial fibrillation type: chronic Qualified Code(s): I48.2 - Chronic atrial fibrillation Is this a current diagnosis for this admission?: YesPlan: Patient appears to be paced and A. fib. Continue scheduled metoprolol and digoxin. (5) Hypertension Qualifiers: Hypertension type: essential hypertension Qualified Code(s): I10 - Essential (primary) hypertension Is this a current diagnosis for this admission?: YesPlan: Currently well-controlled. Will give Lasix. - Time Time Spent with patient: 25-34 minutes Medications reviewed and adjusted accordingly: Yes
[2016-12-09] MEDS: FAMOTIDINE INJ/PF 20 MG/2 ML SDV IV SCH ×2 (13:13→23:28)
--- NOTE | 2016-12-09 14:29 | PDOC PROGRESS REPORT ---
Subjective Progress Note for:: 12/09/16 Subjective:: HAD SMALL bm minimal pain Physical Exam Vital Signs: Temp Pulse Resp BP Pulse Ox 98.4 F 62 20 144/49 H 99 12/09/16 11:20 12/09/16 11:20 12/09/16 11:20 12/09/16 11:20 12/09/16 11:20 Intake & Output 12/08/16 12/09/16 12/10/16 06:59 06:59 07:59 Intake Total 2701 3150 Output Total 835 2490 Balance 1866 660 Weight 81.6 kg 82.2 kg GI/Abdominal exam: PRESENT: other - No distention. No tenderness Results Laboratory Results: 12/08/16 06:49 12/09/16 10:57 12/09/16 12/09/16 12/09/16 04:26 10:57 10:57 Sodium 138.5 141.2 Potassium 4.1 4.4 Chloride 110 H 108 H Carbon Dioxide 20 L 23 Anion Gap 9 10 BUN 22 H 22 H Creatinine 0.89 1.00 Est GFR ( Amer) > 60 > 60 Est GFR (Non-Af Amer) > 60 > 60 Glucose 73 L 91 Lactic Acid 1.4 Calcium 8.6 9.1 Total Bilirubin 0.8 AST 28 ALT 36 Alkaline Phosphatase 100 Total Protein 5.4 L Albumin 2.7 L Lipase 436.8 H Impressions: Acute Abdomen Series 12/07/16 14:49 IMPRESSION: Findings consistent with a small bowel obstruction. Small right pleural effusion is identified and I cannot exclude some associated atelectasis or infiltrate in the right lung base. Other findings as noted above Abdomen/Pelvis CT 12/07/16 17:22 IMPRESSION: Findings consistent with a small bowel obstruction as noted above. A tiny amount of perihepatic and perisplenic ascitic fluid is identified and a small amount of ascitic fluid is identified in the pelvis an small right inguinal hernia. There are more normal caliber distal small bowel loops without a definite transition point being identified. Other findings as noted above KUB X-Ray 12/09/16 00:00 IMPRESSION: NO CHANGE IN THE SMALL BOWEL DILATION. THE NASOGASTRIC TUBE IS NOT VISUALIZED. Assessment & Plan - Plan Summary Plan Summary: Partial obstruction. not resolved yet CT abdomen Keep NG tuge bowel rest
[2016-12-09] MEDS ORDERED: MAGNESIUM CITRATE 296 ML BOTTLE PO ONE ×2 (14:30→18:45)
[2016-12-10 05:26] LABS: ABSOLUTE EOSINOPHILS # (AUTO) 0.1 10^3/uL (0.0-0.6); ABSOLUTE LYMPHOCYTES (AUTO) 0.9 10^3/uL (0.5-4.7); ABSOLUTE MONOCYTES (AUTO) 0.9 10^3/uL (0.1-1.4); ABSOLUTE NEUT (AUTO) 3.3 10^3/uL (1.7-8.2); BASOPHILS % (AUTO) 0.3 % (0-2); EOSINOPHILS % (AUTO) 1.8 % (0-6); HEMATOCRIT 37.1 % (37.9-51.0); HEMOGLOBIN 12.6 g/dL (13.5-17.0); HGB HCT DIFFERENCE 0.7; LYMPHOCYTES % (AUTO) 17.3 % (13-45); MEAN CORPUSCULAR HEMOGLOBIN 29.3 pg (27.0-33.4); MEAN CORPUSCULAR VOLUME 86 fl (80-97); MONOCYTES % (AUTO) 16.5 % (3-13); RED BLOOD COUNT 4.31 10^6/uL (4.35-5.55); RED CELL DISTRIBUTION WIDTH 15.7 % (11.5-14.0); SEGMENTED NEUTROPHILS % (AUTO) 64.1 % (42-78); WHITE BLOOD COUNT 5.2 10^3/uL (4.0-10.5)
[2016-12-10] MEDS: METOPROLOL TARTRATE PF/INJ 5 MG/5 ML SDV IV SCH ×3 (06:05→17:29)
[2016-12-10] MEDS: PANTOPRAZOLE SODIUM 40 MG VIAL IV SCH ×2 (06:11→17:29)
[2016-12-10] MEDS: ENOXAPARIN SODIUM INJ 40 MG/0.4 ML DISP.SYRIN SUBCUT SCH (08:17)
[2016-12-10] MEDS ORDERED: FUROSEMIDE INJ/PF 20 MG/2 ML SDV ONE (10:56)
[2016-12-10] MEDS: DIGOXIN INJ 0.5 MG/2 ML AMPULE IV SCH (10:59)
[2016-12-10] MEDS: FAMOTIDINE INJ/PF 20 MG/2 ML SDV IV SCH (12:17)
[2016-12-10] MEDS ORDERED: PHENOL/SODIUM PHENOLATE 100 SPRAY/177 ML BOTTLE PO PRN (13:47)
--- NOTE | 2016-12-10 13:53 | PDOC PROGRESS REPORT ---
Subjective Progress Note for:: 12/10/16 Subjective:: Patient reports his shortness of breath has improved since yesterday. He reports his abdominal pain was greatly improved with the one dose of morphine he took. Patient also reports having two loose bowel movements after receiving magnesium citrate. Patient denies chest pain, shortness of breath, nausea, vomiting, fevers, chills , constipation, headache, new onset weakness. Physical Exam Vital Signs: Temp Pulse Resp BP Pulse Ox 98.4 F 60 16 140/55 H 99 12/10/16 07:21 12/10/16 07:21 12/10/16 07:21 12/10/16 07:21 12/10/16 07:21 Intake & Output 12/09/16 12/10/16 12/11/16 05:59 06:59 06:59 Intake Total Output Total Balance Weight Exam: General: Awake alert and oriented x3, no acute respiratory distress HEENT: AT/NC, PERRL, EOMI, oropharynx is moist, pink, no scleral icterus, no conjunctival injection Neck: nop JVD, trachea midline Chest: Diminished bilateral bases, otherwise clear to auscultation bilaterally CV: Regular rate and rhythm, normal S1 and S2, no rub or gallop Abdomen: Soft, mildly TTP left upper and lower, mild, active bowel sounds in right upper and lower quadrants; no rebound, rigidity, or guarding Extremities: No cyanosis, clubbing; 1+edema to mid condon Neuro: Cranial nerves II through XII are grossly intact without focal deficits; awake alert and oriented x3 Psych: Normal mood and affect Results Laboratory Results: 12/10/16 04:55 12/09/16 10:57 12/09/16 12/09/16 12/10/16 10:57 10:57 04:55 WBC 5.2 RBC 4.31 L Hgb 12.6 L Hct 37.1 L MCV 86 MCH 29.3 MCHC 34.0 RDW 15.7 H Plt Count 163 Seg Neutrophils % 64.1 Lymphocytes % 17.3 Monocytes % 16.5 H Eosinophils % 1.8 Basophils % 0.3 Absolute Neutrophils 3.3 Absolute Lymphocytes 0.9 Absolute Monocytes 0.9 Absolute Eosinophils 0.1 Absolute Basophils 0.0 Sodium 141.2 Potassium 4.4 Chloride 108 H Carbon Dioxide 23 Anion Gap 10 BUN 22 H Creatinine 1.00 Est GFR ( Amer) > 60 Est GFR (Non-Af Amer) > 60 Glucose 91 Lactic Acid 1.4 Calcium 9.1 Magnesium 12/10/16 04:55 WBC RBC Hgb Hct MCV MCH MCHC RDW Plt Count Seg Neutrophils % Lymphocytes % Monocytes % Eosinophils % Basophils % Absolute Neutrophils Absolute Lymphocytes Absolute Monocytes Absolute Eosinophils Absolute Basophils Sodium Potassium Chloride Carbon Dioxide Anion Gap BUN Creatinine Est GFR ( Amer) Est GFR (Non-Af Amer) Glucose Lactic Acid Calcium Magnesium 1.9 Impressions: Acute Abdomen Series 12/07/16 14:49 IMPRESSION: Findings consistent with a small bowel obstruction. Small right pleural effusion is identified and I cannot exclude some associated atelectasis or infiltrate in the right lung base. Other findings as noted above Abdomen Ultrasound 12/09/16 00:00 IMPRESSION: Limited study due to obscuring bowel gas. No significant pathology as assessed. Abdomen/Pelvis CT 12/09/16 00:00 IMPRESSION: 1. Dilated small bowel persists, proximal to mid. Relative decompression in the left lower lobe with contrast visualized progressing distally. This suggests persistent partial obstruction. Degree of distention is slightly improved. Mild ascites is now present. 2. Slight worsening basilar pulmonary status, small progressive effusions and volume loss in the right lower lobe. Chest X-Ray 12/09/16 00:00 IMPRESSION: CARDIAC ENLARGEMENT WITHOUT FAILURE. RIGHT LOWER LOBE INFILTRATE WITH SMALL PLEURAL EFFUSION. KUB X-Ray 12/09/16 00:00 IMPRESSION: NO CHANGE IN THE SMALL BOWEL DILATION. THE NASOGASTRIC TUBE IS NOT VISUALIZED. Assessment & Plan - Diagnosis (1) SBO (small bowel obstruction) Is this a current diagnosis for this admission?: YesPlan: Patient currently on NG with nothing by mouth status. Patient reports that he was passing flatus and had a bowel movement yesterday. Appreciate surgical input for this. CT of the abdomen revealed partial small bowel obstruction. Patient reports he symptoms have been going on for quite some time. In light of this will clamp NG give patient clears encourage ambulation and monitor for improvement in symptomatology. Patient may benefit from lysis of adhesions or exploration as deemed appropriate by them. Appreciate surgical input. (2) Pulmonary hypertension Is this a current diagnosis for this admission?: Yes (3) Anticoagulated Is this a current diagnosis for this admission?: Yes (4) Atrial fibrillation Qualifiers: Atrial fibrillation type: chronic Qualified Code(s): I48.2 - Chronic atrial fibrillation Is this a current diagnosis for this admission?: YesPlan: Patient appears to be paced and A. fib. Continue scheduled metoprolol and digoxin. Currently patient is supratherapeutic on his INR and we will continue to hold his Coumadin. He is on prophylactic Lovenox. (5) Hypertension Qualifiers: Hypertension type: essential hypertension Qualified Code(s): I10 - Essential (primary) hypertension Is this a current diagnosis for this admission?: YesPlan: Currently well-controlled. Will give Lasix. - Time Time Spent with patient: 25-34 minutes Medications reviewed and adjusted accordingly: Yes Anticipated discharge: Home Within: within 72 hours - When symptoms improve
[2016-12-10] MEDS ORDERED: FUROSEMIDE INJ/PF 20 MG/2 ML SDV IV SCH (14:00)
[2016-12-10] MEDS: SIMETHICONE 80 MG TAB.CHEW PO SCH ×2 (15:23→21:31)
--- NOTE | 2016-12-10 17:45 | PDOC PROGRESS REPORT ---
Subjective Progress Note for:: 12/10/16 Subjective:: Hd 3 BM FEELING BETTER NO ABDOMINAL PAIN Physical Exam Vital Signs: Temp Pulse Resp BP Pulse Ox 97.9 F 61 16 130/56 H 97 12/10/16 15:30 12/10/16 15:30 12/10/16 15:30 12/10/16 15:30 12/10/16 15:30 Intake & Output 12/09/16 12/10/16 12/11/16 05:59 06:59 06:59 Intake Total Output Total Balance Weight GI/Abdominal exam: PRESENT: other - No distention soft , no tender Results Laboratory Results: 12/10/16 04:55 12/09/16 10:57 12/10/16 12/10/16 12/10/16 04:55 04:55 12:02 WBC 5.2 RBC 4.31 L Hgb 12.6 L Hct 37.1 L MCV 86 MCH 29.3 MCHC 34.0 RDW 15.7 H Plt Count 163 Seg Neutrophils % 64.1 Lymphocytes % 17.3 Monocytes % 16.5 H Eosinophils % 1.8 Basophils % 0.3 Absolute Neutrophils 3.3 Absolute Lymphocytes 0.9 Absolute Monocytes 0.9 Absolute Eosinophils 0.1 Absolute Basophils 0.0 Magnesium 1.9 Blood Type O POSITIVE Antibody Screen NEGATIVE Impressions: Acute Abdomen Series 12/07/16 14:49 IMPRESSION: Findings consistent with a small bowel obstruction. Small right pleural effusion is identified and I cannot exclude some associated atelectasis or infiltrate in the right lung base. Other findings as noted above Abdomen Ultrasound 12/09/16 00:00 IMPRESSION: Limited study due to obscuring bowel gas. No significant pathology as assessed. Abdomen/Pelvis CT 12/09/16 00:00 IMPRESSION: 1. Dilated small bowel persists, proximal to mid. Relative decompression in the left lower lobe with contrast visualized progressing distally. This suggests persistent partial obstruction. Degree of distention is slightly improved. Mild ascites is now present. 2. Slight worsening basilar pulmonary status, small progressive effusions and volume loss in the right lower lobe. Chest X-Ray 12/09/16 00:00 IMPRESSION: CARDIAC ENLARGEMENT WITHOUT FAILURE. RIGHT LOWER LOBE INFILTRATE WITH SMALL PLEURAL EFFUSION. KUB X-Ray 12/09/16 00:00 IMPRESSION: NO CHANGE IN THE SMALL BOWEL DILATION. THE NASOGASTRIC TUBE IS NOT VISUALIZED. Abdomen X-Ray 12/10/16 06:00 IMPRESSION: Persistent gaseous distension of proximal to mid small bowel. Similar to prior. Assessment & Plan - Plan Summary Plan Summary: Partial obstruction Resloving po clears Seems to be resolving with conservative management .
[2016-12-10] MEDS ORDERED: MAGNESIUM CITRATE 296 ML BOTTLE PO ONE (18:30)
[2016-12-11] MEDS: FAMOTIDINE INJ/PF 20 MG/2 ML SDV IV SCH ×2 (00:10→12:02)
[2016-12-11] MEDS: METOPROLOL TARTRATE PF/INJ 5 MG/5 ML SDV IV SCH ×4 (00:10→17:49)
[2016-12-11] MEDS: SIMETHICONE 80 MG TAB.CHEW PO SCH ×3 (05:40→22:17)
[2016-12-11] MEDS: PANTOPRAZOLE SODIUM 40 MG VIAL IV SCH (05:40)
--- NOTE | 2016-12-11 07:24 | PDOC PROGRESS REPORT ---
Subjective Progress Note for:: 12/11/16 Subjective:: Had multiple BM NO PAIN Physical Exam Vital Signs: Temp Pulse Resp BP Pulse Ox 98.7 F 119 H 12 154/70 H 99 12/11/16 03:47 12/11/16 03:47 12/11/16 03:47 12/11/16 03:47 12/11/16 03:47 Intake & Output 12/10/16 12/11/16 12/12/16 06:59 06:59 06:59 Intake Total 2361 Output Total 625 Balance 1736 Weight 76 kg GI/Abdominal exam: PRESENT: other - aBDOMEN SOFT, NONTENDER NO DISTENTION Results Laboratory Results: 12/10/16 04:55 12/09/16 10:57 12/10/16 12:02 Blood Type O POSITIVE Antibody Screen NEGATIVE Impressions: Acute Abdomen Series 12/07/16 14:49 IMPRESSION: Findings consistent with a small bowel obstruction. Small right pleural effusion is identified and I cannot exclude some associated atelectasis or infiltrate in the right lung base. Other findings as noted above Abdomen Ultrasound 12/09/16 00:00 IMPRESSION: Limited study due to obscuring bowel gas. No significant pathology as assessed. Abdomen/Pelvis CT 12/09/16 00:00 IMPRESSION: 1. Dilated small bowel persists, proximal to mid. Relative decompression in the left lower lobe with contrast visualized progressing distally. This suggests persistent partial obstruction. Degree of distention is slightly improved. Mild ascites is now present. 2. Slight worsening basilar pulmonary status, small progressive effusions and volume loss in the right lower lobe. Chest X-Ray 12/09/16 00:00 IMPRESSION: CARDIAC ENLARGEMENT WITHOUT FAILURE. RIGHT LOWER LOBE INFILTRATE WITH SMALL PLEURAL EFFUSION. KUB X-Ray 12/09/16 00:00 IMPRESSION: NO CHANGE IN THE SMALL BOWEL DILATION. THE NASOGASTRIC TUBE IS NOT VISUALIZED. Abdomen X-Ray 12/10/16 06:00 IMPRESSION: Persistent gaseous distension of proximal to mid small bowel. Similar to prior. Assessment & Plan - Plan Summary Plan Summary: RESOLVING OBSTRUCTION DC NG TUBE PO CLEARS
[2016-12-11] MEDS: ENOXAPARIN SODIUM INJ 40 MG/0.4 ML DISP.SYRIN SUBCUT SCH (08:20)
[2016-12-11] MEDS: DIGOXIN INJ 0.5 MG/2 ML AMPULE IV SCH (10:09)
[2016-12-11] MEDS: FUROSEMIDE INJ/PF 20 MG/2 ML SDV IV SCH (10:10)
[2016-12-11] MEDS: RINGERS SOLUTION,LACTATED 1,000 ML IV PRN (10:40)
[2016-12-11] MEDS: DOCUSATE SODIUM 100 MG CAPSULE PO SCH (10:40)
[2016-12-11] MEDS ORDERED: PEG 3350/NA SULF,BICARB,CL/KCL 4000 ML PO ONE (11:00)
--- NOTE | 2016-12-11 11:22 | PDOC PROGRESS REPORT ---
Subjective Progress Note for:: 12/11/16 Subjective:: Patient states he feels some better having loose stools; long discussion with patient about his progressive difficulty evacuating his stools, for several years, also associated with inability to clean himself after evacuating. Reviewing his record, he underwent colonoscopy by Dr. Mauricio pedraza in 2011 showing multiple diverticuli and small colon polyps which were removed . Note the patient is status post sigmoid colectomy with stapled anastomosis by Dr. Olguin many years ago for diverticular disease. Physical Exam Vital Signs: Temp Pulse Resp BP Pulse Ox 98.2 F 74 19 140/59 H 99 12/11/16 07:48 12/11/16 07:48 12/11/16 07:48 12/11/16 07:48 12/11/16 07:48 Intake & Output 12/10/16 12/11/16 12/12/16 06:59 06:59 06:59 Intake Total 2361 Output Total 625 Balance 1736 Weight 76 kg General appearance: PRESENT: no acute distress GI/Abdominal exam: PRESENT: other - Soft, nontender no peritoneal signs no rigidity minimal edema Rectal exam: PRESENT: other - Minimal perianal excoriation. Excellent rectal tone. Posterior surface of prostate gland smooth. No masses detected Results Laboratory Results: 12/10/16 04:55 12/09/16 10:57 12/10/16 12:02 Blood Type O POSITIVE Antibody Screen NEGATIVE Impressions: Acute Abdomen Series 12/07/16 14:49 IMPRESSION: Findings consistent with a small bowel obstruction. Small right pleural effusion is identified and I cannot exclude some associated atelectasis or infiltrate in the right lung base. Other findings as noted above Abdomen Ultrasound 12/09/16 00:00 IMPRESSION: Limited study due to obscuring bowel gas. No significant pathology as assessed. Abdomen/Pelvis CT 12/09/16 00:00 IMPRESSION: 1. Dilated small bowel persists, proximal to mid. Relative decompression in the left lower lobe with contrast visualized progressing distally. This suggests persistent partial obstruction. Degree of distention is slightly improved. Mild ascites is now present. 2. Slight worsening basilar pulmonary status, small progressive effusions and volume loss in the right lower lobe. Chest X-Ray 12/09/16 00:00 IMPRESSION: CARDIAC ENLARGEMENT WITHOUT FAILURE. RIGHT LOWER LOBE INFILTRATE WITH SMALL PLEURAL EFFUSION. KUB X-Ray 12/09/16 00:00 IMPRESSION: NO CHANGE IN THE SMALL BOWEL DILATION. THE NASOGASTRIC TUBE IS NOT VISUALIZED. Abdomen X-Ray 12/10/16 06:00 IMPRESSION: Persistent gaseous distension of proximal to mid small bowel. Similar to prior. Status: Image reviewed by me - I have reviewed the images. Films yesterday of the abdomen show wanted to dilated loops of small bowel; there is a moderate amount of air in the transverse and right colon. Assessment & Plan - Diagnosis (1) SBO (small bowel obstruction) Is this a current diagnosis for this admission?: YesPlan: 1. Clinically the small bowel obstruction appears to be a partial and as was all clinically. The patient was about to start clear liquids but had some nausea. We will keep the IV fluids going. 2. Patient's Coumadin has been held. We're checking a PT/INR. 3. In light of the patient's acute episode of total bowel obstruction now resolved, and his chronic, progressive report difficulty moving his bowels, and last colonoscopy 5 years ago I have recommended follow-up colonoscopy this admission. He is very and should having this done. We will set that up for later today after a bowel prep has been initiated. I spoke with patient's only about the above-named greed to proceed; also discussed with Dr. Ortega.
[2016-12-11 12:51] LABS: PROTHROMBIN TIME 24.4 SEC (11.4-15.4)
[2016-12-11 12:52] LABS: PARTIAL THROMBOPLASTIN TIME 48.6 SEC (23.5-35.8)
[2016-12-11 13:12] LABS: ANION GAP 12 (5-19); BLOOD UREA NITROGEN 12 mg/dL (7-20); CALCIUM 9.5 mg/dL (8.4-10.2); CARBON DIOXIDE 28 mmol/L (22-30); CHLORIDE 100 mmol/L (98-107); CREATININE RESULT 0.93 mg/dL (0.52-1.25); GLUCOSE 109 mg/dL (75-110); POTASSIUM 3.6 mmol/L (3.6-5.0)
[2016-12-11] MEDS ORDERED: MIDAZOLAM 2 MG/2 ML INJ ONE (16:24)
[2016-12-11] MEDS ORDERED: ONDANSETRON HCL INJ/PF 4 MG/2 ML SDV ONE (16:24)
[2016-12-11] MEDS ORDERED: NALOXONE HCL INJ/PF 0.4 MG/1 ML SDV ONE (16:24)
[2016-12-11] MEDS ORDERED: PROMETHAZINE HCL INJ 25 MG/1 ML VIAL ONE (16:24)
[2016-12-11] MEDS ORDERED: EPINEPHRINE INJ 1 MG/10 ML DISP.SYRIN ONE (16:25)
[2016-12-11] MEDS ORDERED: GLUCAGON,HUMAN RECOMB 1 MG INJ ONE (16:25)
[2016-12-11] MEDS ORDERED: FLUMAZENIL INJ 0.5 MG/5 ML VIAL IV ONE (16:25)
[2016-12-11] MEDS ORDERED: FENTANYL CITRATE INJ/PF 100 MCG/2 ML AMPUL ONE (16:25)
[2016-12-11] MEDS ORDERED: PHYTONADIONE INJ 10 MG/1 ML AMPULE SUBCUT ONE (16:30)
--- NOTE | 2016-12-11 17:56 | PDOC PROGRESS REPORT ---
Subjective Progress Note for:: 12/11/16 Subjective:: Patient is in the company of his and daughters. Patient reports that he has some abdominal discomfort consistent with gas. He reports symmetric on given yesterday did improve this somewhat. Patient reports he's had a bowel movement and is passing flatus. Patient was seen by surgery and plans are to have a colonoscopy later today. I did discuss this with surgery personally. Patient does complain of mild shortness of breath particularly with prolonged ambulation. Patient denies chest pain, nausea, vomiting, fevers, chills, diarrhea, constipation, headache, new onset weakness. Physical Exam Vital Signs: Temp Pulse Resp BP Pulse Ox 98.7 F 119 H 12 154/70 H 99 12/11/16 03:47 12/11/16 03:47 12/11/16 03:47 12/11/16 03:47 12/11/16 03:47 Intake & Output 12/10/16 12/11/16 12/12/16 06:59 06:59 06:59 Intake Total 2361 Output Total 625 Balance 1736 Weight 76 kg Exam: General: Awake alert and oriented x3, no acute respiratory distress HEENT: AT/NC, PERRL, EOMI, oropharynx is moist, pink, no scleral icterus, no conjunctival injection Neck: nop JVD, trachea midline Chest: Diminished bilateral bases, otherwise clear to auscultation bilaterally CV: Regular rate and rhythm, normal S1 and S2, no rub or gallop Abdomen: Soft, mildly TTP left upper and lower, mild distention, active bowel sounds in all 4 quadrants; no rebound, rigidity, or guarding Extremities: No cyanosis, clubbing; 1+edema to mid condon Neuro: Cranial nerves II through XII are grossly intact without focal deficits; awake alert and oriented x3 Psych: Normal mood and affect Results Laboratory Results: 12/10/16 04:55 12/09/16 10:57 12/10/16 12:02 Blood Type O POSITIVE Antibody Screen NEGATIVE Impressions: Acute Abdomen Series 12/07/16 14:49 IMPRESSION: Findings consistent with a small bowel obstruction. Small right pleural effusion is identified and I cannot exclude some associated atelectasis or infiltrate in the right lung base. Other findings as noted above Abdomen Ultrasound 12/09/16 00:00 IMPRESSION: Limited study due to obscuring bowel gas. No significant pathology as assessed. Abdomen/Pelvis CT 12/09/16 00:00 IMPRESSION: 1. Dilated small bowel persists, proximal to mid. Relative decompression in the left lower lobe with contrast visualized progressing distally. This suggests persistent partial obstruction. Degree of distention is slightly improved. Mild ascites is now present. 2. Slight worsening basilar pulmonary status, small progressive effusions and volume loss in the right lower lobe. Chest X-Ray 12/09/16 00:00 IMPRESSION: CARDIAC ENLARGEMENT WITHOUT FAILURE. RIGHT LOWER LOBE INFILTRATE WITH SMALL PLEURAL EFFUSION. KUB X-Ray 12/09/16 00:00 IMPRESSION: NO CHANGE IN THE SMALL BOWEL DILATION. THE NASOGASTRIC TUBE IS NOT VISUALIZED. Abdomen X-Ray 12/10/16 06:00 IMPRESSION: Persistent gaseous distension of proximal to mid small bowel. Similar to prior. Assessment & Plan - Diagnosis (1) SBO (small bowel obstruction) Is this a current diagnosis for this admission?: YesPlan: Patient currently receiving clear liquids. No nausea or vomiting. NG has been discontinued. Patient reports that he was passing flatus and had a bowel movement yesterday. Appreciate surgical input for this. CT of the abdomen revealed partial small bowel obstruction. Patient to have colonoscopy today by surgery. (2) Pulmonary hypertension Is this a current diagnosis for this admission?: Yes (3) Anticoagulated Is this a current diagnosis for this admission?: YesPlan: Have repeated PT/INR. Patient is currently not receiving his Coumadin, will give vitamin K 2.5 mg subcutaneous 1. (4) Atrial fibrillation Qualifiers: Atrial fibrillation type: chronic Qualified Code(s): I48.2 - Chronic atrial fibrillation Is this a current diagnosis for this admission?: YesPlan: Patient appears to be paced and A. fib. Continue scheduled metoprolol and digoxin. Currently patient is supratherapeutic on his INR and we will continue to hold his Coumadin. Lovenox and hold pending procedure (5) Hypertension Qualifiers: Hypertension type: essential hypertension Qualified Code(s): I10 - Essential (primary) hypertension Is this a current diagnosis for this admission?: YesPlan: Currently well-controlled. Will give Lasix. - Time Time Spent with patient: 25-34 minutes Anticipated discharge: Home Within: within 24 hours
--- NOTE | 2016-12-11 20:03 | Operative Report ---
Operative Report DATE OF SURGERY: 12/11/16 PREOPERATIVE DIAGNOSIS: 1. Change in bowel habits. 2. Personal history of colon polyps. 3. Diverticulosis POSTOPERATIVE DIAGNOSIS: Essentially normal colon except for diverticulosis OPERATION: Total colonoscopy to cecum with photodocumentation SURGEON: FLORENCE SHEN ANESTHESIA: Moderate Sedation TISSUE REMOVED OR ALTERED: None COMPLICATIONS: None ESTIMATED BLOOD LOSS: none INTRAOPERATIVE FINDINGS: See below PROCEDURE: Obtaining informed consent the patient was taken from the preoperative holding area to the main endoscopy suite on the fifth floor where monitoring devices were attached to the patient. Plan and surgical timeout were conducted The patient was placed in the left lateral decubitus position with knees to chest. A perianal examination was performed. There was no visible or palpable anorectal pathology. Sphincter tone was felt to be normal. The flexible adult colonoscope was advanced through the anal rectal canal, all the way to the cecum. Utilization of the cecum was achieved and the ileocecal valve, the appendiceal orifice and transillumination of the anterior abdominal wall. This was an excellent study on the well-prepped bowel. The colonoscope was withdrawn slowly and methodically checked and the mucosa carefully. There was no evidence of tumor, stricture, bleeding or polyp. There were diverticular disease of the right colon and a few diverticulosis in the left colon; this was an excellent study on a well-prepped bowel. The previous sigmoid colon resection site could not be detected The scope was slowly withdrawn through the anal rectal canal. Complete visualization of the rectum was achieved with photodocumentation. The scope was withdrawn to the patient's anus. The patient tolerated the procedure well and was taken to the recovery area in stable condition. Procedure surveillance guidelines, patient be appropriate candidate for follow- up colonoscopy in 10 years, or sooner if symptoms develop.
[2016-12-12] MEDS: METOPROLOL TARTRATE PF/INJ 5 MG/5 ML SDV IV SCH ×2 (00:17→06:05)
[2016-12-12] MEDS: FAMOTIDINE INJ/PF 20 MG/2 ML SDV IV SCH ×2 (00:18→11:23)
[2016-12-12] MEDS: RINGERS SOLUTION,LACTATED 1,000 ML IV PRN (02:24)
[2016-12-12 04:35] LABS: ABSOLUTE EOSINOPHILS # (AUTO) 0.1 10^3/uL (0.0-0.6); ABSOLUTE MONOCYTES (AUTO) 0.6 10^3/uL (0.1-1.4); ABSOLUTE NEUT (AUTO) 2.8 10^3/uL (1.7-8.2); BASOPHILS % (AUTO) 0.3 % (0-2); EOSINOPHILS % (AUTO) 2.7 % (0-6); HEMATOCRIT 35.7 % (37.9-51.0); HEMOGLOBIN 12.4 g/dL (13.5-17.0); HGB HCT DIFFERENCE 1.5; LYMPHOCYTES % (AUTO) 21.6 % (13-45); MEAN CORPUSCULAR HEMOGLOBIN 29.6 pg (27.0-33.4); MEAN CORPUSCULAR HGB CONC 34.8 g/dL (32.0-36.0); MEAN CORPUSCULAR VOLUME 85 fl (80-97); MONOCYTES % (AUTO) 13.4 % (3-13); RED CELL DISTRIBUTION WIDTH 15.5 % (11.5-14.0); WHITE BLOOD COUNT 4.5 10^3/uL (4.0-10.5)
[2016-12-12 04:41] LABS: ANION GAP 8 (5-19); BLOOD UREA NITROGEN 10 mg/dL (7-20); CALCIUM 8.8 mg/dL (8.4-10.2); CARBON DIOXIDE 27 mmol/L (22-30); CHLORIDE 103 mmol/L (98-107); CREATININE RESULT 0.71 mg/dL (0.52-1.25); GLUCOSE 88 mg/dL (75-110); POTASSIUM 3.4 mmol/L (3.6-5.0)
[2016-12-12] MEDS: SIMETHICONE 80 MG TAB.CHEW PO SCH ×3 (06:05→21:25)
[2016-12-12] MEDS ORDERED: POTASSIUM CHLORIDE 10 MEQ TABLET.SA PO ONE (08:30)
[2016-12-12] MEDS: ENOXAPARIN SODIUM INJ 40 MG/0.4 ML DISP.SYRIN SUBCUT SCH (08:49)
[2016-12-12 09:05] LABS: PROTHROMBIN TIME 18.5 SEC (11.4-15.4)
[2016-12-12] MEDS: FUROSEMIDE INJ/PF 20 MG/2 ML SDV IV SCH (10:26)
[2016-12-12] MEDS: DIGOXIN INJ 0.5 MG/2 ML AMPULE IV SCH (10:26)
[2016-12-12] MEDS ORDERED: FUROSEMIDE 40 MG TABLET PO ONE ×2 (10:49→13:00)
[2016-12-12] MEDS ORDERED: ONDANSETRON 4 MG TAB.RAPDIS PO PRN (10:53)
[2016-12-12] MEDS: DOCUSATE SODIUM 100 MG CAPSULE PO SCH (10:53)
[2016-12-12] MEDS ORDERED: METOPROLOL TARTRATE 100 MG TABLET PO SCH (11:00)
[2016-12-12] MEDS ORDERED: [UNRECOGNIZED DRUG - OTHER] PO SCH (11:00)
[2016-12-12] MEDS ORDERED: HYDROCHLOROTHIAZIDE PO SCH (11:00)
[2016-12-12] MEDS ORDERED: VALSARTAN PO SCH (11:00)
[2016-12-12] MEDS ORDERED: (PENDING PHARMACY ID) (Warfarin Sodium 5 MG) PO SCH (11:00)
[2016-12-12] MEDS: IBUPROFEN 600 MG TABLET PO PRN ×2 (11:22→21:25)
[2016-12-12] MEDS ORDERED: ASPIRIN 81 MG TABLET, ENT COATED PO ONE (12:00)
[2016-12-12] MEDS ORDERED: DIGOXIN 0.125 MG TABLET PO ONE (13:00)
[2016-12-12] MEDS ORDERED: ENOXAPARIN SODIUM INJ 120 MG/0.8 ML DISP.SYRIN SUBCUT ONE (13:00)
[2016-12-12] MEDS ORDERED: FINASTERIDE 5 MG TABLET PO ONE (13:00)
[2016-12-12] MEDS: METOPROLOL TARTRATE 100 MG TABLET PO SCH (21:24)
[2016-12-12] MEDS ORDERED: ATORVASTATIN CALCIUM 20 MG TABLET PO SCH (22:00)
[2016-12-12] MEDS ORDERED: WARFARIN SODIUM 5 MG TABLET PO SCH (22:00)
--- NOTE | 2016-12-12 23:38 | PDOC PROGRESS REPORT ---
Subjective Progress Note for:: 12/12/16 Subjective:: Patient seen earlier today on rounds. Patient reports that he's having some abdominal distention and discomfort. He was unable to eat his clear liquid breakfast. Patient's IV infiltrated and has bruised.Patient denies chest pain, shortness of breath, abdominal pain, vomiting , fevers, chills, diarrhea, constipation, headache, new onset weakness. Physical Exam Vital Signs: Temp Pulse Resp BP Pulse Ox 98.3 F 85 16 168/67 H 99 12/12/16 19:40 12/12/16 19:40 12/12/16 19:40 12/12/16 19:40 12/12/16 19:40 Intake & Output 12/11/16 12/12/16 12/13/16 06:59 06:59 06:59 Intake Total 2361 3198 1062 Output Total 625 200 500 Balance 1736 2998 562 Weight 76 kg 77.6 kg Exam: General: Awake alert and oriented x3, no acute respiratory distress HEENT: AT/NC, PERRL, EOMI, oropharynx is moist, pink, no scleral icterus, no conjunctival injection Neck: nop JVD, trachea midline Chest: Diminished bilateral bases, otherwise clear to auscultation bilaterally CV: Regular rate and rhythm, normal S1 and S2, no rub or gallop Abdomen: Soft, mildly TTP left upper and lower, mild distention, active bowel sounds in all 4 quadrants; no rebound, rigidity, or guarding Extremities: No cyanosis, clubbing; 1+edema to mid condon Neuro: Cranial nerves II through XII are grossly intact without focal deficits; awake alert and oriented x3 Psych: Normal mood and affect Results Laboratory Results: 12/12/16 04:04 12/12/16 04:04 12/12/16 12/12/16 04:04 04:04 WBC 4.5 RBC 4.20 L Hgb 12.4 L Hct 35.7 L MCV 85 MCH 29.6 MCHC 34.8 RDW 15.5 H Plt Count 155 Seg Neutrophils % 62.0 Lymphocytes % 21.6 Monocytes % 13.4 H Eosinophils % 2.7 Basophils % 0.3 Absolute Neutrophils 2.8 Absolute Lymphocytes 1.0 Absolute Monocytes 0.6 Absolute Eosinophils 0.1 Absolute Basophils 0.0 Sodium 138.0 Potassium 3.4 L Chloride 103 Carbon Dioxide 27 Anion Gap 8 BUN 10 Creatinine 0.71 Est GFR ( Amer) > 60 Est GFR (Non-Af Amer) > 60 Glucose 88 Calcium 8.8 Impressions: Acute Abdomen Series 12/07/16 14:49 IMPRESSION: Findings consistent with a small bowel obstruction. Small right pleural effusion is identified and I cannot exclude some associated atelectasis or infiltrate in the right lung base. Other findings as noted above Abdomen Ultrasound 12/09/16 00:00 IMPRESSION: Limited study due to obscuring bowel gas. No significant pathology as assessed. Abdomen/Pelvis CT 12/09/16 00:00 IMPRESSION: 1. Dilated small bowel persists, proximal to mid. Relative decompression in the left lower lobe with contrast visualized progressing distally. This suggests persistent partial obstruction. Degree of distention is slightly improved. Mild ascites is now present. 2. Slight worsening basilar pulmonary status, small progressive effusions and volume loss in the right lower lobe. Chest X-Ray 12/09/16 00:00 IMPRESSION: CARDIAC ENLARGEMENT WITHOUT FAILURE. RIGHT LOWER LOBE INFILTRATE WITH SMALL PLEURAL EFFUSION. KUB X-Ray 12/09/16 00:00 IMPRESSION: NO CHANGE IN THE SMALL BOWEL DILATION. THE NASOGASTRIC TUBE IS NOT VISUALIZED. Abdomen X-Ray 12/10/16 06:00 IMPRESSION: Persistent gaseous distension of proximal to mid small bowel. Similar to prior. Assessment & Plan - Diagnosis (1) SBO (small bowel obstruction) Is this a current diagnosis for this admission?: YesPlan: Have intense patient diet, but appears to be unable to tolerate. NG has been discontinued. Patient reports that he was passing flatus and had a bowel movement yesterday. Appreciate surgical input for this. CT of the abdomen revealed partial small bowel obstruction. Colonoscopy to not have any acute findings. (2) Pulmonary hypertension Is this a current diagnosis for this admission?: Yes (3) Anticoagulated Is this a current diagnosis for this admission?: Yes (4) Atrial fibrillation Qualifiers: Atrial fibrillation type: chronic Qualified Code(s): I48.2 - Chronic atrial fibrillation Is this a current diagnosis for this admission?: Yes (5) Hypertension Qualifiers: Hypertension type: essential hypertension Qualified Code(s): I10 - Essential (primary) hypertension Is this a current diagnosis for this admission?: Yes - Time Time Spent with patient: 15-24 minutes Anticipated discharge: Home Within: within 48 hours
[2016-12-13] MEDS: SIMETHICONE 80 MG TAB.CHEW PO SCH ×2 (05:32→13:13)
[2016-12-13] MEDS ORDERED: LANSOPRAZOLE 15 MG TAB.RAP.DR PO SCH (06:00)
[2016-12-13] MEDS ORDERED: FINASTERIDE 5 MG TABLET PO SCH (10:00)
[2016-12-13] MEDS ORDERED: ASPIRIN 81 MG TABLET, ENT COATED PO SCH (10:00)
[2016-12-13] MEDS ORDERED: DIGOXIN 0.125 MG TABLET PO SCH (10:00)
[2016-12-13] MEDS: METOPROLOL TARTRATE 100 MG TABLET PO SCH (10:01)
[2016-12-13] MEDS: DOCUSATE SODIUM 100 MG CAPSULE PO SCH (10:02)
--- NOTE | 2016-12-13 10:43 | PROGRESS NOTE E ---
Progress Note NAME: ROHIT DIETZ : 1935 AGE: 81Y DATE: 12/13/2016 ROOM: 319 The patient had presented with partial small bowel obstruction. This appeared to be resolved with him having 4 L of GoLYTELY and then a colonoscopy 2 days ago which was uneventful. SUBJECTIVE: The patient had a normal breakfast today, just feeling a little full. He is passing gas but he has not had any bowel movement. He does not feel nauseated. He denies any abdominal pain. OBJECTIVE: The patient's abdomen is soft, minimally distended, nontender. No hernias. DIAGNOSTIC DATA: KUB shows a continued dilated loop of small bowel in the left upper quadrant. ASSESSMENT: PARTIAL SMALL BOWEL OBSTRUCTION THAT APPEARS TO HAVE RESOLVED; HOWEVER, HE DOES HAVE THIS PERSISTENT LOOP OF SMALL BOWEL THAT HAD SOME DILATION IN THE LEFT UPPER QUADRANT OF UNKNOWN SIGNIFICANCE. As he is eating well and clinically doing well, then I would not consider him having small bowel obstruction at this time; therefore, I would recommend that he eat lunch and if he is doing fine, then be able to be discharged home. He does have, though, a higher likelihood of recurrent bowel obstruction, and I have explained this to the patient and his daughter, which they acknowledge. PLAN: We will see how he does with a regular lunch diet clinically and then determine further treatment if necessary. DICTATING PHYSICIAN: PIPPA MASTERSON M.D. [id number] PHY#: [id number] ID: [id number] JOB#: [id number] ACCT: [id number] cc: >
[2016-12-13] MEDS ORDERED: (PENDING PHARMACY ID) (Warfarin Sodium 7.5 MG) PO SCH (10:53)
[2016-12-13 11:44] VITALS: BP 136/56
[2016-12-13] MEDS ORDERED: WARFARIN SODIUM 7.5 MG TABLET PO SCH (22:00)
--- NOTE | 2016-12-14 17:49 | PDOC DISCHARGE SUMMARY ---
General - Admit/Disc Date/PCP Admission Date/Primary Care Provider: 12/07/16 22:29 AMBER DIANE, Discharge Date: 12/13/16 - Discharge Diagnosis (1) SBO (small bowel obstruction) Is this a current diagnosis for this admission?: Yes (2) Pulmonary hypertension Is this a current diagnosis for this admission?: Yes (3) Anticoagulated Is this a current diagnosis for this admission?: Yes (4) Atrial fibrillation Is this a current diagnosis for this admission?: Yes (5) Hypertension Is this a current diagnosis for this admission?: Yes - Additional Information Resuscitation Status: Full Code Discharge Diet: Cardiac Discharge Activity: Activity As Tolerated, Slowly Increase Activity, Walk Frequently Home Medications: Finasteride [Proscar 5 mg Tablet] 5 mg PO DAILY 12/07/16 Metoprolol Tartrate [Lopressor 100 mg Tablet] 100 mg PO BID 12/07/16 Valsartan/Hydrochlorothiazide [Diovan Hct 160-12.5 mg Tab] 0.5 tab PO DAILY 06/17 Warfarin Sodium [Coumadin 5 mg Tablet] 5 mg PO SUMOTUTHFRSA 12/07/16 Warfarin Sodium [Coumadin 7.5 mg Tablet] 7.5 mg PO WE 12/07/16 Aspirin [Aspirin EC] 81 mg PO DAILY 12/08/16 Atorvastatin Calcium [Lipitor 20 mg Tablet] 20 mg PO QHS 12/08/16 Digoxin [Lanoxin 0.125 mg Tablet] 0.125 mg PO DAILY 12/08/16 Omeprazole 20 mg PO DAILYP PRN 12/08/16 Potassium Chloride 10 meq PO DAILY 12/08/16 History of Present Illness History of Present Illness: 81-year-old male, with underlying congestive heart failure, uncertain if systolic and/or diastolic, along with chronic atrial fibrillation, on chronic Coumadin for same, hypertension, borderline diabetes mellitus, and arthritis, who presents to the emergency room for evaluation of approximately 36 hour history of intermittent at times pronounced cramping diffuse abdominal pain. Worse with virtually any by mouth intake. Positive nausea and vomiting, without blood or coffee grounds emesis. Small bowel movement earlier this morning. No flatus for the past 24 hours. No fever. Occasional chills, but states this is not unusual for him. No chest pain. Prior abdominal surgery includes segmental colon resection for diverticulitis, along with cholecystectomy. Has never had NG tube placed before. Patient has been discussed with emergency room physician who evaluated the patient. Nasogastric tube placed by emergency room physician. Already more than 1 L of cloudy bilious fluid suctioned. Patient states he's feeling a bit better, with cramping abdominal pain much decreased. Has been seen by surgery already; note reviewed.. Hospital Course Hospital Course: Patient was treated conservatively with NG and IV fluids. Patient had resolution of his bowel obstruction. Patient was seen by the surgical service to and underwent colonoscopy on 12/11/[address] Olivares. Patient revealed diverticulosis without diverticulitis and no polyps. On day of discharge patient was able to eat without any difficulty and was ambulating and doing well without any complaints. Remainder of hospital course was unremarkable Physical Exam Vital Signs: Temp Pulse Resp BP Pulse Ox 97.5 F 81 18 136/56 H 99 12/13/16 14:51 12/13/16 14:51 12/13/16 14:51 12/13/16 14:51 12/13/16 14:51 Intake & Output 12/13/16 12/14/16 12/15/16 06:59 06:59 06:59 Intake Total 1284 Output Total 700 Balance 584 Weight 77.2 kg Exam: General: Awake alert and oriented x3, no acute respiratory distress HEENT: AT/NC, PERRL, EOMI, oropharynx is moist, pink, no scleral icterus, no conjunctival injection Neck: no JVD, trachea midline Chest: CTAB CV: Regular rate and rhythm, normal S1 and S2, no rub or gallop Abdomen: Soft, NTTP, mild distention, active bowel sounds in all 4 quadrants; no rebound, rigidity, or guarding Extremities: No cyanosis, clubbing; trace edema to mid condon Neuro: Cranial nerves II through XII are grossly intact without focal deficits; awake alert and oriented x3 Psych: Normal mood and affect Results Laboratory Results: 12/12/16 04:04 12/12/16 04:04 Impressions: Acute Abdomen Series 12/07/16 14:49 IMPRESSION: Findings consistent with a small bowel obstruction. Small right pleural effusion is identified and I cannot exclude some associated atelectasis or infiltrate in the right lung base. Other findings as noted above Abdomen Ultrasound 12/09/16 00:00 IMPRESSION: Limited study due to obscuring bowel gas. No significant pathology as assessed. Abdomen/Pelvis CT 12/09/16 00:00 IMPRESSION: 1. Dilated small bowel persists, proximal to mid. Relative decompression in the left lower lobe with contrast visualized progressing distally. This suggests persistent partial obstruction. Degree of distention is slightly improved. Mild ascites is now present. 2. Slight worsening basilar pulmonary status, small progressive effusions and volume loss in the right lower lobe. Chest X-Ray 12/09/16 00:00 IMPRESSION: CARDIAC ENLARGEMENT WITHOUT FAILURE. RIGHT LOWER LOBE INFILTRATE WITH SMALL PLEURAL EFFUSION. Abdomen X-Ray 12/10/16 06:00 IMPRESSION: Persistent gaseous distension of proximal to mid small bowel. Similar to prior. KUB X-Ray 12/13/16 00:00 IMPRESSION: Nonspecific bowel gas pattern with persistent dilated left upper quadrant small bowel loop, and air in nondistended mid and distal small bowel and colon. Qualifiers PATEINT BEING DISCHARGED WITH ANY OF THE FOLLOWING DIAGNOSIS?: No Plan Time Spent: Less than 30 Minutes
== END 2016-12-13 15:40 | disposition home or self-care (01) | DRG 390 ==
LOC: ER 14:36 → UNDOADMIN 20:45 → EH 20:45 → 3W 23:15
PROVIDERS: ADMIT Family Medicine; ATTEND Family Medicine
PROC: 0D9670Z Drainage of Stomach with Drainage Device, Via Natural or Artificial Opening (ICD-10-PCS; 2016-12-07)
PROC: 0DJD8ZZ Inspection of Lower Intestinal Tract, Via Natural or Artificial Opening Endoscopic (ICD-10-PCS; principal; 2016-12-11 14:00)
DX: K56.60 Unspecified intestinal obstruction (principal); I11.0 Hypertensive heart disease with heart failure; I50.9 Heart failure, unspecified; I48.2 Chronic atrial fibrillation; E78.5 Hyperlipidemia, unspecified; I27.2 Other secondary pulmonary hypertension; K57.30 Diverticulosis of large intestine without perforation or abscess without bleeding; R73.03 Prediabetes; M19.90 Unspecified osteoarthritis, unspecified site; Z86.010 Personal history of colon polyps; Z90.49 Acquired absence of other specified parts of digestive tract; Z95.5 Presence of coronary angioplasty implant and graft; Z79.02 Long term (current) use of antithrombotics/antiplatelets; Z79.899 Other long term (current) drug therapy; Z88.8 Allergy status to other drugs, medicaments and biological substances; Z95.0 Presence of cardiac pacemaker
CPT/HCPCS: 36415; 45378; 71020; 74000; 74020; 74022; 74177; 76705; 80048; 80053; 81001; 82962; 83605; 83690; 83735; 85025; 85610; 85730; 86850; 86900; 86901; 94799; 96361; 96374; 99291; J0171; J1160; J1610; J1650; J1940; J2250; J2270; J2310; J2405; J2550; J3010; J3490; J7030; J7040; J7120; S0028; S0119; S0164

== ENCOUNTER 2017-05-24 06:45 | Day surgery (SDC) | payer MEDICARE, BC ==
[~2017-05-24 06:45] MED LIST: KETOROLAC TROMETHAMINE 0.45% 4 DROP/0.4 ML DROPERETTE OS PRN; LIDOCAINE 3.5% OPH GEL/PF 1 ML/TUBE OS PRN
[2017-05-24] MEDS ORDERED: CHONDR SU A NA/HYALUR INTRAOC KIT (SURGICARE) ONE (07:06)
[2017-05-24] MEDS ORDERED: LIDOCAINE 1% INJ-PF (10 MG/ML) 30 ML SDV ONE (07:06)
[2017-05-24] MEDS ORDERED: EPINEPHRINE INJ/PF 1 MG/1 ML AMPULE ONE (07:06)
[2017-05-24] MEDS: CYCLOPENTOLATE 0.2%/PHENYLEPHRINE 1% OPH SOLN 2 ML OS PRN ×3 (07:10→07:32)
[2017-05-24] MEDS: TROPICAMIDE 1% OPH SOLN 3 ML OS PRN ×3 (07:10→07:32)
[2017-05-24] MEDS: TETRACAINE HCL 0.5% OPH SOLN 2 ML OS PRN ×3 (07:10→08:05)
[2017-05-24] MEDS: BESIFLOXACIN HCL 0.6% OPH SUSP 5 ML BOTTLE OS PRN ×4 (07:11→08:30)
[2017-05-24] MEDS ORDERED: MIDAZOLAM 2 MG/2 ML INJ ONE ×2 (07:16)
--- NOTE | 2017-05-24 21:33 | [facility] OPERATIVE REPORT E ---
[facility] Operative Report NAME: ROHIT DIETZ AGE: 81Y DATE OF SURGERY: 05/24/2017 ROOM: PREOPERATIVE DIAGNOSIS: CATARACT, LEFT EYE. POSTOPERATIVE DIAGNOSIS: CATARACT, LEFT EYE. OPERATION: Cataract extraction with intraocular lens implant of the left eye. SURGEON: JOSEFINA BABB M.D. ANESTHESIA: Topical. TISSUE REMOVED OR ALTERED: PROCEDURE: After obtaining appropriate consent, the patient's eye was prepped and draped in sterile fashion as well as the surgeon in a sterile manner and cataract surgery was started. First a paracentesis blade was used to make a small side-port incision. Viscoelastic was used to inflate the anterior chamber. Next a 2.4 mm incision was made with the paracentesis blade. A continuous capsulorrhexis incision was made using a cystotome and Utrata forceps. Following this hydrodissection was carried out to make the lens fully loose and mobile and it was rotated 90 degrees. Following this, a acznue-ggf-cvbxkpo technique was used to phacoemulsify the lens with a CDE of 11.37. The remaining cortex was removed with irrigation/aspiration. Provisc was instilled into the capsular bag to inflate the bag. A SN60WF, 22.0 diopter lens was placed. The remaining viscoelastic material was removed with irrigation/aspiration. Following this, a 10-0 nylon suture was used to close the incision and it was found to be watertight. Vigamox was instilled in the eye and a protective shield was placed over the eye. The patient returned to the postoperative recovery in stable condition. DICTATING PHYSICIAN: JOSEFINA BABB M.D. [id number] [id number] PHY#: [id number] ID: [id number] JOB#: [id number] ACCT: [id number] cc:JOSEFINA BABB M.D. >
--- NOTE | 2017-05-24 21:37 | [facility] DISCHARGE SUMMARY E ---
[facility] Discharge Summary NAME: ROHIT DIETZ AGE: 81Y ADMITTED: 05/24/2017 DISCHARGED: 05/24/2017 HISTORY OF PRESENT ILLNESS AND HOSPITAL COURSE: This is an 81-year-old patient who underwent cataract extraction of the left eye. DIAGNOSIS: Cataract, left eye. HOSPITAL COURSE: He underwent surgery because he was having difficulty with glare from headlights and having difficulty in driving. DISCHARGE INSTRUCTIONS: 1. He should be on a regular diet. 2. No bending at his waist and no heavy lifting. 3. He should use Besivance, Ilevro, and Durezol at 3 p.m. and 8 p.m. and sleep with a rigid shield. 4. I will see him for his one-day postoperative tomorrow. DICTATING PHYSICIAN: JOSEFINA BABB M.D. [id number] PHY#: [id number] ID: [id number] JOB#: [id number] ACCT: [id number] cc:JOSEFINA BABB M.D. >
== END 2017-05-24 07:12 | disposition home or self-care (01) ==
LOC: SC 06:45
PROVIDERS: ATTEND Internal Medicine
PROC: 08RK3JZ Replacement of Left Lens with Synthetic Substitute, Percutaneous Approach (ICD-10-PCS; principal; 2017-05-24 08:00)
DX: H25.12 Age-related nuclear cataract, left eye (principal); M19.90 Unspecified osteoarthritis, unspecified site; I25.10 Atherosclerotic heart disease of native coronary artery without angina pectoris; I10 Essential (primary) hypertension; R01.1 Cardiac murmur, unspecified; I49.9 Cardiac arrhythmia, unspecified; I25.2 Old myocardial infarction
CPT/HCPCS: 66984; V2632; J2250; J3490 ×2; A9270; J0171; 142

== ENCOUNTER 2017-06-21 07:37 | Day surgery (SDC) | payer MEDICARE, BC ==
[~2017-06-21 07:37] MED LIST changes: +KETOROLAC TROMETHAMINE 0.45% 4 DROP/0.4 ML DROPERETTE OD PRN; -KETOROLAC TROMETHAMINE 0.45% 4 DROP/0.4 ML DROPERETTE OS PRN; -LIDOCAINE 3.5% OPH GEL/PF 1 ML/TUBE OS PRN
[2017-06-21] MEDS ORDERED: CHONDR SU A NA/HYALUR INTRAOC KIT (SURGICARE) ONE (08:00)
[2017-06-21] MEDS ORDERED: EPINEPHRINE INJ/PF 1 MG/1 ML AMPULE ONE (08:00)
[2017-06-21] MEDS ORDERED: LIDOCAINE 1% INJ-PF (10 MG/ML) 30 ML SDV ONE (08:00)
[2017-06-21] MEDS: BESIFLOXACIN HCL 0.6% OPH SUSP 5 ML BOTTLE OD PRN ×3 (08:22→09:19)
[2017-06-21] MEDS: TROPICAMIDE 1% OPH SOLN 3 ML OD PRN ×3 (08:22→08:44)
[2017-06-21] MEDS: CYCLOPENTOLATE 0.2%/PHENYLEPHRINE 1% OPH SOLN 2 ML OD PRN ×3 (08:22→08:44)
[2017-06-21] MEDS: TETRACAINE HCL 0.5% OPH SOLN 2 ML OD PRN ×3 (08:22→08:53)
[2017-06-21] MEDS ORDERED: MIDAZOLAM 2 MG/2 ML INJ ONE ×2 (08:37)
--- NOTE | 2017-06-21 18:13 | DISCHARGE SUMMARY E ---
Discharge Summary NAME: ROHTI DIETZ : 1935 AGE: 81Y ADMITTED: 06/21/2017 DISCHARGED: 06/21/2017 REASON FOR ADMISSION: This is an 81-year-old patient who underwent cataract extraction of the right eye. DIAGNOSIS: Cataract, right eye. HISTORY AND HOSPITAL COURSE: He underwent surgery because he was having difficulty reading the newspaper and watching TV. He should be on a regular diet. No bending at his waist. No heavy lifting. He should use his Besivance, Ilevro, and Durezol at 3:00 p.m. and 8:00 p.m. and sleep with a rigid shield, and I will see him for his 1-day postoperative tomorrow. DICTATING PHYSICIAN: JOSEFINA BABB M.D. [id number] PHY#: [id number] ID: [id number] JOB#: [id number] ACCT: [id number] cc:JOSEFINA BABB M.D. >
--- NOTE | 2017-06-21 18:13 | [facility] OPERATIVE REPORT E ---
[facility] Operative Report NAME: ROHIT DIETZ AGE: 81Y DATE OF SURGERY: 06/21/2017 ROOM: PREOPERATIVE DIAGNOSIS: CATARACT, RIGHT EYE. POSTOPERATIVE DIAGNOSIS: CATARACT, RIGHT EYE. OPERATION: Cataract extraction with intraocular lens implant of the right eye. SURGEON: JOSEFINA BABB M.D. ANESTHESIA: Topical. PROCEDURE: After obtaining appropriate consent, the patient's right eye was prepped and draped in sterile fashion as well as the surgeon in a sterile manner and cataract surgery was started. First a paracentesis blade was used to make a small side-port incision. Viscoelastic was used to inflate the anterior chamber. Next a 2.4 mm incision was made with the paracentesis blade. A continuous capsulorrhexis incision was made using a cystotome and Utrata forceps. Following this hydrodissection was carried out to make the lens fully loose and mobile and it was rotated 90 degrees. Following this, a pgtaji-qfa-eynqpvr technique was used to phacoemulsify the lens with a CDE of 14.43. The remaining cortex was removed with irrigation/aspiration. Provisc was instilled into the capsular bag to inflate the bag. A SN60WF, 21.0 diopter lens was placed. The remaining viscoelastic material was removed with irrigation/aspiration. Following this, a 10-0 nylon suture was used to close the incision and it was found to be watertight. Vigamox was instilled in the eye and a protective shield was placed over the eye. The patient returned to the postoperative recovery in stable condition. DICTATING PHYSICIAN: JOSEFINA BABB M.D. [id number] PHY#: [id number] ID: [id number] JOB#: [id number] ACCT: [id number] cc:JOSEFINA BABB M.D. >
== END 2017-06-21 10:05 | disposition home or self-care (01) ==
LOC: SC 07:37
PROVIDERS: ATTEND Internal Medicine
PROC: 08RJ3JZ Replacement of Right Lens with Synthetic Substitute, Percutaneous Approach (ICD-10-PCS; principal; 2017-06-21 09:00)
DX: H25.11 Age-related nuclear cataract, right eye (principal); Z96.1 Presence of intraocular lens; J44.9 Chronic obstructive pulmonary disease, unspecified; I10 Essential (primary) hypertension; K21.9 Gastro-esophageal reflux disease without esophagitis; I48.91 Unspecified atrial fibrillation; Z79.899 Other long term (current) drug therapy; Z88.5 Allergy status to narcotic agent; Z79.82 Long term (current) use of aspirin; Z95.0 Presence of cardiac pacemaker; Z79.51 Long term (current) use of inhaled steroids; Z79.01 Long term (current) use of anticoagulants
CPT/HCPCS: 66984; V2632; J2250; J3490 ×2; A9270; J0171; 142

== ENCOUNTER → 2017-09-13 | Outpatient (CLI) | payer MEDICARE, BC ==
[2017-09-13 10:06] LABS: PROTHROMBIN TIME 31.3 SEC (11.4-15.4)
[2017-09-13 10:29] LABS: ANION GAP 12 (5-19); BLOOD UREA NITROGEN 26 mg/dL (7-20); CALCIUM 9.9 mg/dL (8.4-10.2); CARBON DIOXIDE 28 mmol/L (22-30); CHLORIDE 103 mmol/L (98-107); CREATININE RESULT 1.48 mg/dL (0.52-1.25); GLUCOSE 128 mg/dL (75-110); MAGNESIUM 1.9 mg/dL (1.6-2.3); POTASSIUM 4.8 mmol/L (3.6-5.0); SODIUM 142.5 mmol/L (137-145)
== END ==
LOC: OD 08:44
PROVIDERS: ATTEND Internal Medicine Cardiovascular Disease
DX: E78.2 Mixed hyperlipidemia (principal); E83.42 Hypomagnesemia; N18.9 Chronic kidney disease, unspecified; I48.2 Chronic atrial fibrillation; Z79.01 Long term (current) use of anticoagulants
CPT/HCPCS: 36415; 80048; 83735; 85610

== ENCOUNTER → 2017-09-26 | Outpatient (CLI) | payer MEDICARE, BC ==
[2017-09-26 08:25] LABS: INTERNATIONAL RATION (INR) 2.57; PROTHROMBIN TIME 28.9 SEC (11.4-15.4)
[2017-09-26 08:37] LABS: ALANINE AMINOTRANSFERASE 36 U/L (21-72); ALBUMIN 4.1 g/dL (3.5-5.0); ALKALINE PHOSPHATASE 155 U/L (38-126); ASPARTATE AMINO TRANSFERASE 28 U/L (17-59); BILIRUBIN,DIRECT 0.2 mg/dL (0.0-0.4); BILIRUBIN,TOTAL 0.7 mg/dL (0.2-1.3); TOTAL PROTEIN 7.3 g/dL (6.3-8.2)
== END ==
LOC: OD 07:32
PROVIDERS: ATTEND Internal Medicine Cardiovascular Disease
DX: I48.2 Chronic atrial fibrillation (principal); Z79.01 Long term (current) use of anticoagulants; K29.70 Gastritis, unspecified, without bleeding
CPT/HCPCS: 36415; 80076; 85610

== ENCOUNTER → 2017-10-03 | Outpatient (CLI) | payer MEDICARE, BC ==
[2017-10-03 09:43] LABS: INTERNATIONAL RATION (INR) 1.83; PROTHROMBIN TIME 22.2 SEC (11.4-15.4)
== END ==
LOC: OD 08:49
PROVIDERS: ATTEND Internal Medicine Cardiovascular Disease
DX: I48.2 Chronic atrial fibrillation (principal); Z79.01 Long term (current) use of anticoagulants
CPT/HCPCS: 36415; 85610

== ENCOUNTER → 2017-10-08 | Outpatient (CLI) | payer MEDICARE, BC ==
--- NOTE | 2017-10-08 14:31 | RADIOLOGY REPORT (SQ) ---
EXAM DESCRIPTION: CHEST PA/LATERAL COMPLETED DATE/TIME: 10/08/2017 12:01 pm REASON FOR STUDY: COUGH,COPD,BRONCHITIS COMPARISON: 12/09/2016 NUMBER OF VIEWS: Two view. TECHNIQUE: Frontal and lateral radiographic views of the chest acquired. LIMITATIONS: None. FINDINGS: LUNGS AND PLEURA: . Minimal opacity right base. Could represent residual scarring from previous infiltrate this level on 12/09/2016. Recurrent active infiltrate cannot be excluded based on radiographic appearance. Left lung essentially clear. MEDIASTINUM AND HILAR STRUCTURES: No masses or contour abnormalities. HEART AND VASCULATURE: Heart normal size. No evidence for failure. BONY STRUCTURES: No acute findings. HARDWARE: Pacing electrodes intact. OTHER: No other significant finding. IMPRESSION: Minimal density right base. Chronic change related previous infiltrate versus recurrent active disease TECHNICAL DOCUMENTATION: JOB ID: [id number] [employer]- All Rights Reserved
== END ==
LOC: OD 11:44
PROVIDERS: ATTEND Family Medicine Geriatric Medicine
DX: J20.9 Acute bronchitis, unspecified (principal); R05 Cough; J44.9 Chronic obstructive pulmonary disease, unspecified
CPT/HCPCS: 71046

== ENCOUNTER → 2017-10-10 | Outpatient (CLI) | payer MEDICARE, BC ==
[2017-10-10 08:21] LABS: INTERNATIONAL RATION (INR) 2.37; PROTHROMBIN TIME 27.1 SEC (11.4-15.4)
== END ==
LOC: OD 07:40
PROVIDERS: ATTEND Family Medicine Geriatric Medicine
DX: I48.2 Chronic atrial fibrillation (principal); Z79.01 Long term (current) use of anticoagulants
CPT/HCPCS: 36415; 85610

== ENCOUNTER → 2017-10-17 | Outpatient (CLI) | payer MEDICARE, BC ==
[2017-10-17 09:07] LABS: INTERNATIONAL RATION (INR) 2.27; PROTHROMBIN TIME 26.2 SEC (11.4-15.4)
== END ==
LOC: OD 08:23
PROVIDERS: ATTEND Internal Medicine Cardiovascular Disease
DX: I48.2 Chronic atrial fibrillation (principal); Z79.01 Long term (current) use of anticoagulants
CPT/HCPCS: 36415; 85610

== ENCOUNTER → 2017-10-23 | Outpatient (CLI) | payer MEDICARE, BC ==
[2017-10-23 09:25] LABS: INTERNATIONAL RATION (INR) 2.19; PROTHROMBIN TIME 25.5 SEC (11.4-15.4)
== END ==
LOC: OD 08:32
PROVIDERS: ATTEND Internal Medicine Cardiovascular Disease
DX: I48.2 Chronic atrial fibrillation (principal); Z79.01 Long term (current) use of anticoagulants
CPT/HCPCS: 36415; 85610

== ENCOUNTER → 2017-11-06 | Outpatient (CLI) | payer MEDICARE, BC ==
[2017-11-06 10:14] LABS: PROTHROMBIN TIME 35.1 SEC (11.4-15.4)
== END ==
LOC: OD 08:59
PROVIDERS: ATTEND Internal Medicine Cardiovascular Disease
DX: I48.2 Chronic atrial fibrillation (principal); Z79.01 Long term (current) use of anticoagulants
CPT/HCPCS: 36415; 85610

== ENCOUNTER → 2017-11-19 | Outpatient (CLI) | payer MEDICARE, BC ==
--- NOTE | 2017-11-19 12:24 | RADIOLOGY REPORT (SQ) ---
EXAM DESCRIPTION: CHEST PA/LATERAL COMPLETED DATE/TIME: 11/19/2017 12:09 pm REASON FOR STUDY: BRONCHITIS, NOT SPECIFIED ACUTE OR CHRONIC,COPD COMPARISON: 10/08/2017. EXAM PARAMETERS: NUMBER OF VIEWS: two views TECHNIQUE: Digital Frontal and Lateral radiographic views of the chest acquired. RADIATION DOSE: NA LIMITATIONS: none FINDINGS: LUNGS AND PLEURA: Chronic interstitial changes right lung base with right pleural thickeni ng. MEDIASTINUM AND HILAR STRUCTURES: No masses or contour abnormalities. HEART AND VASCULAR STRUCTURES: Borderline cardiac size and aortic atherosclerosis. BONES: No acute findings. HARDWARE: Unipolar pacemaker wire in right ventricle. OTHER: Surgical clips left axilla. IMPRESSION: BORDERLINE CARDIOMEGALY WITH AORTIC ATHEROSCLEROSIS. CHRONIC RIGHT BASILAR PLEUROPARENC HYMAL CHANGES. TECHNICAL DOCUMENTATION: JOB ID: [id number] [employer]- All Rights Reserved
== END ==
LOC: OD 10:56
PROVIDERS: ATTEND Family Medicine Geriatric Medicine
DX: J40 Bronchitis, not specified as acute or chronic (principal); J44.9 Chronic obstructive pulmonary disease, unspecified
CPT/HCPCS: 71046

== ENCOUNTER → 2017-11-19 | Outpatient (CLI) | payer MEDICARE, BC ==
[2017-11-19 11:23] LABS: INTERNATIONAL RATION (INR) 2.22; PROTHROMBIN TIME 25.8 SEC (11.4-15.4)
== END ==
LOC: OD 10:43
PROVIDERS: ATTEND Internal Medicine Cardiovascular Disease
DX: I48.2 Chronic atrial fibrillation (principal); Z79.01 Long term (current) use of anticoagulants
CPT/HCPCS: 36415; 85610

== ENCOUNTER → 2017-12-03 | Outpatient (CLI) | payer MEDICARE, BC ==
[2017-12-03 09:27] LABS: PROTHROMBIN TIME 28.3 SEC (11.4-15.4)
== END ==
LOC: OD 08:50
PROVIDERS: ATTEND Internal Medicine Cardiovascular Disease
DX: I48.2 Chronic atrial fibrillation (principal); Z79.01 Long term (current) use of anticoagulants
CPT/HCPCS: 36415; 85610

== ENCOUNTER → 2017-12-17 | Outpatient (CLI) | payer MEDICARE, BC ==
[2017-12-17 10:30] LABS: INTERNATIONAL RATION (INR) 2.78; PROTHROMBIN TIME 30.7 SEC (11.4-15.4)
== END ==
LOC: OD 09:32
PROVIDERS: ATTEND Internal Medicine Cardiovascular Disease
DX: I48.2 Chronic atrial fibrillation (principal); Z79.01 Long term (current) use of anticoagulants
CPT/HCPCS: 36415; 85610

== ENCOUNTER → 2017-12-31 | Outpatient (CLI) | payer MEDICARE, BC ==
[2017-12-31 09:59] LABS: INTERNATIONAL RATION (INR) 3.06; PROTHROMBIN TIME 33.1 SEC (11.4-15.4)
[2017-12-31 10:26] LABS: ANION GAP 9 (5-19); BLOOD UREA NITROGEN 29 mg/dL (7-20); CALCIUM 10.2 mg/dL (8.4-10.2); CARBON DIOXIDE 31 mmol/L (22-30); CHLORIDE 101 mmol/L (98-107); GLUCOSE 140 mg/dL (75-110); POTASSIUM 4.9 mmol/L (3.6-5.0); SODIUM 140.6 mmol/L (137-145)
== END ==
LOC: OD 08:39
PROVIDERS: ATTEND Internal Medicine Cardiovascular Disease
DX: I48.2 Chronic atrial fibrillation (principal); R06.02 Shortness of breath; Z79.01 Long term (current) use of anticoagulants
CPT/HCPCS: 36415; 80048; 83880; 85610

== ENCOUNTER → 2018-01-12 | Outpatient (CLI) | payer MEDICARE, BC ==
[2018-01-12 10:09] LABS: INTERNATIONAL RATION (INR) 2.29; PROTHROMBIN TIME 26.3 SEC (11.4-15.4)
== END ==
LOC: OD 08:52
PROVIDERS: ATTEND Internal Medicine Cardiovascular Disease
DX: I48.2 Chronic atrial fibrillation (principal); Z79.01 Long term (current) use of anticoagulants
CPT/HCPCS: 36415; 85610

== ENCOUNTER → 2018-01-23 | Outpatient (CLI) | payer MEDICARE, BC ==
[2018-01-23 10:13] LABS: ABSOLUTE EOSINOPHILS # (AUTO) 0.3 10^3/uL (0.0-0.6); ABSOLUTE LYMPHOCYTES (AUTO) 1.5 10^3/uL (0.5-4.7); ABSOLUTE MONOCYTES (AUTO) 0.6 10^3/uL (0.1-1.4); ABSOLUTE NEUT (AUTO) 4.3 10^3/uL (1.7-8.2); BASOPHILS % (AUTO) 0.2 % (0-2); EOSINOPHILS % (AUTO) 3.8 % (0-6); HEMATOCRIT 43.8 % (37.9-51.0); HEMOGLOBIN 15.5 g/dL (13.5-17.0); LYMPHOCYTES % (AUTO) 22.9 % (13-45); MEAN CORPUSCULAR HEMOGLOBIN 32.5 pg (27.0-33.4); MEAN CORPUSCULAR HGB CONC 35.3 g/dL (32.0-36.0); MEAN CORPUSCULAR VOLUME 92 fl (80-97); MONOCYTES % (AUTO) 8.8 % (3-13); PLATELET COUNT 169 10^3/uL (150-450); RED BLOOD COUNT 4.76 10^6/uL (4.35-5.55); RED CELL DISTRIBUTION WIDTH 13.7 % (11.5-14.0); SEGMENTED NEUTROPHILS % (AUTO) 64.3 % (42-78); TOTAL CELLS COUNTED % (AUTO) 100 %; WHITE BLOOD COUNT 6.7 10^3/uL (4.0-10.5)
[2018-01-23 10:20] LABS: INTERNATIONAL RATION (INR) 2.75; PROTHROMBIN TIME 30.4 SEC (11.4-15.4)
[2018-01-23 10:34] LABS: ALANINE AMINOTRANSFERASE 26 U/L (21-72); ALBUMIN 4.1 g/dL (3.5-5.0); ALKALINE PHOSPHATASE 128 U/L (38-126); ANION GAP 10 (5-19); ASPARTATE AMINO TRANSFERASE 25 U/L (17-59); BILIRUBIN,DIRECT 0.3 mg/dL (0.0-0.4); BILIRUBIN,TOTAL 0.7 mg/dL (0.2-1.3); BLOOD UREA NITROGEN 24 mg/dL (7-20); CARBON DIOXIDE 31 mmol/L (22-30); CHLORIDE 101 mmol/L (98-107); CHOLESTEROL 149.71 mg/dL (0-200); DIGOXIN 1.65 ng/mL (0.8-2.0); GLUCOSE 128 mg/dL (75-110); POTASSIUM 4.5 mmol/L (3.6-5.0); SODIUM 142.3 mmol/L (137-145); TOTAL PROTEIN 7.3 g/dL (6.3-8.2); TRIGLYCERIDES 220 mg/dL (<150)
[2018-01-23 10:43] LABS: DIRECT LDL 67 mg/dL (<100)
[2018-01-24 11:40] LABS: CREATININE URINE 96.1 mg/dL (Not Estab.); MICROALBUMIN URINE 258.6 ug/mL (Not Estab.)
== END ==
LOC: OD 08:14
PROVIDERS: ATTEND Family Medicine Geriatric Medicine
DX: E11.9 Type 2 diabetes mellitus without complications (principal); E78.5 Hyperlipidemia, unspecified; N40.1 Benign prostatic hyperplasia with lower urinary tract symptoms; Z79.899 Other long term (current) drug therapy; I48.2 Chronic atrial fibrillation; Z79.01 Long term (current) use of anticoagulants
CPT/HCPCS: 36415; 80053; 80061; 80162; 82043; 82570; 83036; 84153; 84443; 85025; 85610

== ENCOUNTER → 2018-02-05 | Outpatient (CLI) | payer MEDICARE, BC ==
[2018-02-05 08:52] LABS: INTERNATIONAL RATION (INR) 1.92; PROTHROMBIN TIME 22.9 SEC (11.4-15.4)
[2018-02-05 09:09] LABS: ANION GAP 16 (5-19); BLOOD UREA NITROGEN 37 mg/dL (7-20); CALCIUM 10.6 mg/dL (8.4-10.2); CARBON DIOXIDE 28 mmol/L (22-30); CHLORIDE 101 mmol/L (98-107); GLUCOSE 128 mg/dL (75-110); POTASSIUM 4.5 mmol/L (3.6-5.0); SODIUM 144.9 mmol/L (137-145)
== END ==
LOC: OD 08:11
PROVIDERS: ATTEND Internal Medicine Cardiovascular Disease
DX: I48.2 Chronic atrial fibrillation (principal); R06.02 Shortness of breath; Z79.01 Long term (current) use of anticoagulants
CPT/HCPCS: 36415; 80048; 83880; 85610

== ENCOUNTER → 2018-02-19 | Outpatient (CLI) | payer MEDICARE, BC ==
[2018-02-19 10:03] LABS: INTERNATIONAL RATION (INR) 2.04
== END ==
LOC: OD 08:41
PROVIDERS: ATTEND Internal Medicine Cardiovascular Disease
DX: I48.2 Chronic atrial fibrillation (principal); Z79.01 Long term (current) use of anticoagulants
CPT/HCPCS: 36415; 85610

== ENCOUNTER → 2018-03-05 | Outpatient (CLI) | payer MEDICARE, BC ==
[2018-03-05 08:57] LABS: INTERNATIONAL RATION (INR) 1.86; PROTHROMBIN TIME 22.3 SEC (11.4-15.4)
== END ==
LOC: OD 07:58
PROVIDERS: ATTEND Internal Medicine Cardiovascular Disease
DX: I48.2 Chronic atrial fibrillation (principal); Z79.01 Long term (current) use of anticoagulants
CPT/HCPCS: 36415; 85610

== ENCOUNTER → 2018-03-16 | Outpatient (CLI) | payer MEDICARE, BC ==
[2018-03-16 10:36] LABS: ALANINE AMINOTRANSFERASE 26 U/L (21-72); ALBUMIN 4.3 g/dL (3.5-5.0); ALKALINE PHOSPHATASE 117 U/L (38-126); ANION GAP 14 (5-19); ASPARTATE AMINO TRANSFERASE 26 U/L (17-59); BILIRUBIN,DIRECT 0.4 mg/dL (0.0-0.4); BILIRUBIN,TOTAL 0.9 mg/dL (0.2-1.3); BLOOD UREA NITROGEN 41 mg/dL (7-20); CALCIUM 10.2 mg/dL (8.4-10.2); CARBON DIOXIDE 28 mmol/L (22-30); CHLORIDE 99 mmol/L (98-107); CHOLESTEROL 123.79 mg/dL (0-200); GLUCOSE 128 mg/dL (75-110); POTASSIUM 4.8 mmol/L (3.6-5.0); SODIUM 141.3 mmol/L (137-145); TOTAL PROTEIN 7.6 g/dL (6.3-8.2); TRIGLYCERIDES 179 mg/dL (<150)
[2018-03-16 10:47] LABS: DIRECT LDL 44 mg/dL (<100)
[2018-03-16 10:53] LABS: VLDL CHOLESTEROL 35.8 mg/dL (10-31)
== END ==
LOC: OD 08:08
PROVIDERS: ATTEND Internal Medicine Cardiovascular Disease
DX: E78.2 Mixed hyperlipidemia (principal); E83.52 Hypercalcemia; R06.02 Shortness of breath; I10 Essential (primary) hypertension; I48.2 Chronic atrial fibrillation; Z79.01 Long term (current) use of anticoagulants; Z79.899 Other long term (current) drug therapy
CPT/HCPCS: 36415; 80048; 80061; 80076; 83735; 85730

== ENCOUNTER → 2018-03-19 | Outpatient (CLI) | payer MEDICARE, BC ==
[2018-03-19 08:31] LABS: INTERNATIONAL RATION (INR) 2.56; PROTHROMBIN TIME 28.7 SEC (11.4-15.4)
== END ==
LOC: OD 07:10
PROVIDERS: ATTEND Internal Medicine Cardiovascular Disease
DX: I48.2 Chronic atrial fibrillation (principal); Z79.01 Long term (current) use of anticoagulants
CPT/HCPCS: 36415; 85610

== ENCOUNTER → 2018-04-01 | Outpatient (CLI) | payer MEDICARE, BC ==
[2018-04-01 10:22] LABS: PROTHROMBIN TIME 33.4 SEC (11.4-15.4)
== END ==
LOC: OD 09:06
PROVIDERS: ATTEND Internal Medicine Cardiovascular Disease
DX: I48.2 Chronic atrial fibrillation (principal); Z79.01 Long term (current) use of anticoagulants
CPT/HCPCS: 36415; 85610

== ENCOUNTER → 2018-04-13 | Outpatient (CLI) | payer MEDICARE, BC ==
[2018-04-13 10:26] LABS: INTERNATIONAL RATION (INR) 2.67; PROTHROMBIN TIME 29.7 SEC (11.4-15.4)
== END ==
LOC: OD 09:15
PROVIDERS: ATTEND Internal Medicine Cardiovascular Disease
DX: I48.2 Chronic atrial fibrillation (principal); Z79.01 Long term (current) use of anticoagulants
CPT/HCPCS: 36415; 85610

== ENCOUNTER → 2018-04-27 | Outpatient (CLI) | payer MEDICARE, BC ==
[2018-04-27 09:17] LABS: INTERNATIONAL RATION (INR) 2.39; PROTHROMBIN TIME 27.2 SEC (11.4-15.4)
== END ==
LOC: OD 08:17
PROVIDERS: ATTEND Internal Medicine Cardiovascular Disease
DX: I48.2 Chronic atrial fibrillation (principal); Z79.01 Long term (current) use of anticoagulants
CPT/HCPCS: 36415; 85610

== ENCOUNTER → 2018-05-11 | Outpatient (CLI) | payer MEDICARE, BC ==
[2018-05-11 09:25] LABS: INTERNATIONAL RATION (INR) 1.97; PROTHROMBIN TIME 23.4 SEC (11.4-15.4)
[2018-05-11 09:38] LABS: ANION GAP 15 (5-19); BLOOD UREA NITROGEN 31 mg/dL (7-20); CALCIUM 10.1 mg/dL (8.4-10.2); CARBON DIOXIDE 27 mmol/L (22-30); CHLORIDE 103 mmol/L (98-107); GLUCOSE 121 mg/dL (75-110); POTASSIUM 4.3 mmol/L (3.6-5.0); SODIUM 145.2 mmol/L (137-145)
[2018-05-11 09:39] LABS: ALANINE AMINOTRANSFERASE 19 U/L (21-72); ALBUMIN 4.1 g/dL (3.5-5.0); ALKALINE PHOSPHATASE 130 U/L (38-126); ASPARTATE AMINO TRANSFERASE 23 U/L (17-59); BILIRUBIN,DIRECT 0.3 mg/dL (0.0-0.4); BILIRUBIN,TOTAL 0.9 mg/dL (0.2-1.3); CHOLESTEROL 113.98 mg/dL (0-200); TOTAL PROTEIN 7.3 g/dL (6.3-8.2); TRIGLYCERIDES 166 mg/dL (<150)
[2018-05-11 09:50] LABS: DIRECT LDL 42 mg/dL (<100)
[2018-05-11 09:56] LABS: VLDL CHOLESTEROL 33.2 mg/dL (10-31)
[2018-05-13 02:36] LABS: CREATININE URINE 86.4 mg/dL (Not Estab.); MICROALBUMIN URINE 57.1 ug/mL (Not Estab.)
== END ==
LOC: OD 08:07
PROVIDERS: ATTEND Family Medicine Geriatric Medicine
DX: I48.2 Chronic atrial fibrillation (principal); R06.02 Shortness of breath; E78.5 Hyperlipidemia, unspecified; I49.3 Ventricular premature depolarization; Z79.01 Long term (current) use of anticoagulants; E11.21 Type 2 diabetes mellitus with diabetic nephropathy; E11.22 Type 2 diabetes mellitus with diabetic chronic kidney disease; I13.0 Hypertensive heart and chronic kidney disease with heart failure and stage 1 through stage 4 chronic kidney disease, or unspecified chronic kidney disease; N18.3 Chronic kidney disease, stage 3 (moderate); I50.30 Unspecified diastolic (congestive) heart failure; I25.10 Atherosclerotic heart disease of native coronary artery without angina pectoris
CPT/HCPCS: 36415; 80048; 80061; 80076; 82043; 82570; 82652; 83880; 84443; 85610

== ENCOUNTER → 2018-05-25 | Outpatient (CLI) | payer MEDICARE, BC ==
[2018-05-25 09:55] LABS: INTERNATIONAL RATION (INR) 3.22; PROTHROMBIN TIME 34.4 SEC (11.4-15.4)
== END ==
LOC: OD 08:09
PROVIDERS: ATTEND Internal Medicine Cardiovascular Disease
DX: I48.2 Chronic atrial fibrillation (principal); Z79.01 Long term (current) use of anticoagulants
CPT/HCPCS: 36415; 85610

== ENCOUNTER → 2018-05-29 | Outpatient (CLI) | payer MEDICARE, BC ==
--- NOTE | 2018-05-29 16:16 | RADIOLOGY REPORT (SQ) ---
EXAM DESCRIPTION: U/S RETROPERITON (RENAL/AORTA) COMPLETED DATE/TIME: 05/29/2018 4:06 pm REASON FOR STUDY: N18.3 CHRONIC KIDNEY DISEASE, STAGE 3 (MODERATE) N18.3 CHRONIC KIDNEY DISEASE, ST AGE 3 (MODERATE) COMPARISON: None. TECHNIQUE: Dynamic and static grayscale images acquired of the kidneys and bladder and recorded on P ACS. Additional selected color Doppler and spectral images recorded. LIMITATIONS: None. FINDINGS: RIGHT KIDNEY: The right kidney measures 9.3 cm in length. Normal echogenicity. No edgar id masses. There is a simple 2.0 x 2.0 x 1.6 cm cyst. No hydronephrosis. No calcifications. LEFT KIDNEY: The left kidney measures 10.7 cm in length. Normal echogenicity. No solid or suspic ious masses. No hydronephrosis. No calcifications. BLADDER: No masses. OTHER FINDINGS: Prostate is enlarged and measures 5.2 x 4.6 x 4.2 cm. It indents the base of the ambrosio dder. IMPRESSION: Mild asymmetry in renal size. Right kidney measures 9.3 cm in length. The left measure s 10.7. No hydronephrosis. Echogenicity is normal. Prostate is enlarged and indents the base of the bladder. TECHNICAL DOCUMENTATION: JOB ID: [id number] [employer]- All Rights Reserved Reading location - IP/workstation name: [email or web address]
== END ==
LOC: RAD 14:41
PROVIDERS: ATTEND Family Medicine Geriatric Medicine
DX: N18.3 Chronic kidney disease, stage 3 (moderate) (principal); N40.0 Benign prostatic hyperplasia without lower urinary tract symptoms
CPT/HCPCS: 76770

== ENCOUNTER → 2018-06-08 | Outpatient (CLI) | payer MEDICARE, BC ==
[2018-06-08 10:20] LABS: INTERNATIONAL RATION (INR) 2.73; PROTHROMBIN TIME 30.2 SEC (11.4-15.4)
== END ==
LOC: OD 08:48
PROVIDERS: ATTEND Internal Medicine Cardiovascular Disease
DX: I48.2 Chronic atrial fibrillation (principal); Z79.01 Long term (current) use of anticoagulants
CPT/HCPCS: 36415; 85610

== ENCOUNTER → 2018-06-22 | Outpatient (CLI) | payer MEDICARE, BC ==
[2018-06-22 09:04] LABS: INTERNATIONAL RATION (INR) 2.42; PROTHROMBIN TIME 27.5 SEC (11.4-15.4)
== END ==
LOC: OD 08:35
PROVIDERS: ATTEND Internal Medicine Cardiovascular Disease
DX: I48.2 Chronic atrial fibrillation (principal); Z79.01 Long term (current) use of anticoagulants
CPT/HCPCS: 36415; 85610

== ENCOUNTER → 2018-07-08 | Outpatient (CLI) | payer MEDICARE, BC ==
[2018-07-08 10:57] LABS: INTERNATIONAL RATION (INR) 2.31; PROTHROMBIN TIME 26.5 SEC (11.4-15.4)
== END ==
LOC: OD 09:44
PROVIDERS: ATTEND Internal Medicine Cardiovascular Disease
DX: I48.2 Chronic atrial fibrillation (principal); Z79.01 Long term (current) use of anticoagulants
CPT/HCPCS: 36415; 85610

== ENCOUNTER → 2018-08-03 | Outpatient (CLI) | payer MEDICARE, BC ==
[2018-08-03 10:27] LABS: PROTHROMBIN TIME 27.3 SEC (11.4-15.4)
[2018-08-03 10:43] LABS: ALANINE AMINOTRANSFERASE 23 U/L (21-72); ALKALINE PHOSPHATASE 122 U/L (38-126); ANION GAP 13 (5-19); ASPARTATE AMINO TRANSFERASE 26 U/L (17-59); BILIRUBIN,DIRECT 0.2 mg/dL (0.0-0.4); BILIRUBIN,TOTAL 0.9 mg/dL (0.2-1.3); BLOOD UREA NITROGEN 35 mg/dL (7-20); CALCIUM 9.8 mg/dL (8.4-10.2); CARBON DIOXIDE 29 mmol/L (22-30); CHLORIDE 100 mmol/L (98-107); CHOLESTEROL 129.18 mg/dL (0-200); GLUCOSE 108 mg/dL (75-110); SODIUM 141.7 mmol/L (137-145); TOTAL PROTEIN 7.1 g/dL (6.3-8.2); TRIGLYCERIDES 170 mg/dL (<150)
[2018-08-03 10:54] LABS: DIRECT LDL 69 mg/dL (<100)
[2018-08-05 03:36] LABS: CREATININE URINE 69.9 mg/dL (Not Estab.); MICROALBUMIN URINE 31.5 ug/mL (Not Estab.)
== END ==
LOC: OD 09:08
PROVIDERS: ATTEND Internal Medicine Cardiovascular Disease
DX: E11.21 Type 2 diabetes mellitus with diabetic nephropathy (principal); E78.5 Hyperlipidemia, unspecified; I10 Essential (primary) hypertension; I48.2 Chronic atrial fibrillation; Z79.01 Long term (current) use of anticoagulants; Z79.899 Other long term (current) drug therapy
CPT/HCPCS: 36415; 80048; 80061; 80076; 82043; 82570; 83036; 85610

== ENCOUNTER → 2018-08-19 | Outpatient (CLI) | payer MEDICARE, BC ==
[2018-08-19 11:32] LABS: INTERNATIONAL RATION (INR) 2.75; PROTHROMBIN TIME 30.4 SEC (11.4-15.4)
== END ==
LOC: OD 10:18
PROVIDERS: ATTEND Internal Medicine Cardiovascular Disease
DX: I48.2 Chronic atrial fibrillation (principal); Z79.01 Long term (current) use of anticoagulants
CPT/HCPCS: 36415; 85610

== ENCOUNTER → 2018-09-03 | Outpatient (CLI) | payer MEDICARE, BC ==
[2018-09-03 10:16] LABS: ANION GAP 11 (5-19); BLOOD UREA NITROGEN 34 mg/dL (7-20); CALCIUM 9.7 mg/dL (8.4-10.2); CARBON DIOXIDE 29 mmol/L (22-30); CHLORIDE 103 mmol/L (98-107); GLUCOSE 118 mg/dL (75-110); INTERNATIONAL RATION (INR) 2.82; POTASSIUM 4.8 mmol/L (3.6-5.0); SODIUM 143.3 mmol/L (137-145)
== END ==
LOC: OD 08:26
PROVIDERS: ATTEND Physician Assistant
DX: I12.9 Hypertensive chronic kidney disease with stage 1 through stage 4 chronic kidney disease, or unspecified chronic kidney disease (principal); N18.9 Chronic kidney disease, unspecified; I48.2 Chronic atrial fibrillation; Z79.01 Long term (current) use of anticoagulants
CPT/HCPCS: 36415; 80048; 85610

== ENCOUNTER → 2018-09-13 | Outpatient (CLI) | payer MEDICARE, BC ==
[2018-09-13 11:04] LABS: INTERNATIONAL RATION (INR) 2.56; PROTHROMBIN TIME 28.7 SEC (11.4-15.4)
[2018-09-13 11:25] LABS: ANION GAP 10 (5-19); BLOOD UREA NITROGEN 34 mg/dL (7-20); CALCIUM 10.1 mg/dL (8.4-10.2); CARBON DIOXIDE 29 mmol/L (22-30); CHLORIDE 103 mmol/L (98-107); GLUCOSE 115 mg/dL (75-110); SODIUM 141.9 mmol/L (137-145)
== END ==
LOC: OD 10:04
PROVIDERS: ATTEND Internal Medicine Cardiovascular Disease
DX: R60.9 Edema, unspecified (principal); R06.02 Shortness of breath; I48.2 Chronic atrial fibrillation; Z79.01 Long term (current) use of anticoagulants
CPT/HCPCS: 36415; 80048; 83735; 85610

== ENCOUNTER → 2018-10-12 | Outpatient (CLI) | payer MEDICARE, BC ==
[2018-10-12 11:06] LABS: ANION GAP 9 (5-19); BLOOD UREA NITROGEN 26 mg/dL (7-20); CALCIUM 10.2 mg/dL (8.4-10.2); CARBON DIOXIDE 30 mmol/L (22-30); CHLORIDE 102 mmol/L (98-107); GLUCOSE 124 mg/dL (75-110); POTASSIUM 5.3 mmol/L (3.6-5.0); SODIUM 140.7 mmol/L (137-145)
== END ==
LOC: OD 08:48
PROVIDERS: ATTEND Internal Medicine Cardiovascular Disease
DX: I48.2 Chronic atrial fibrillation (principal); N18.9 Chronic kidney disease, unspecified; R60.9 Edema, unspecified; Z79.01 Long term (current) use of anticoagulants
CPT/HCPCS: 36415; 80048; 85730

== ENCOUNTER 2018-10-15 17:53 | Inpatient (IN) | payer MEDICARE, BC ==
--- NOTE | 2018-10-15 18:21 | ER Document Report ---
ED General - General Chief Complaint: Abdominal Pain Stated Complaint: ABDOMINAL PAIN, PRESSURE Time Seen by Provider: 10/15/18 18:21 Notes: Patient is a 83-year-old male with history of diverticulitis status post bowel resection that presents to the emergency department for chief complaint of abdominal pain. Patient reports that he is been having abdominal pain over the last few days, decreased appetite as well, and nausea but no vomiting. He describes his abdominal pain is diffuse across most of his abdomen, he states his had a lot of gas yesterday, and reports not having a bowel movements over the past 4 days as well. He was seen by his primary care and they ordered a CT scan of his abdomen, the demonstrated an ileus versus early small bowel obstruction. He has had these in the past, but does not seem to be as bad this time. He currently rates his pain as a 5 out of 10, describes it as an aching sensation, all over the abdomen. Denies having any diarrhea, dysuria, hematuria, fevers, chills, night sweats, chest pain or shortness of breath. Past Medical History: Atrial fibrillation on Coumadin, hypertension, CAD with s tenting history of diverticulosis Past Surgical History: PCI with stenting, colon resection Social History: Denies current tobacco, alcohol or drug use. Family History: Reviewed and noncontributory for presenting illness Allergies: Reviewed, see documented allergy list. REVIEW OF SYSTEMS: Other than noted above, the 12 point review of systems was reviewed with the patient and were negative, all pertinent findings are included in the HPI. PHYSICAL EXAMINATION: Vital signs reviewed, nursing noted reviewed. GENERAL: Elderly, well-appearing, well-nourished and in no acute distress. HEAD: Atraumatic, normocephalic. EYES: Eyes appear normal, extraocular movements intact, sclera anicteric, conjunctiva are normal. ENT: nares patent, oropharynx clear without exudates. Moist mucous membranes. NECK: Normal range of motion, supple without lymphadenopathy LUNGS: Breath sounds clear to auscultation bilaterally and equal. No wheezes rales or rhonchi. HEART: Regular rate and rhythm without murmurs ABDOMEN: Soft, mild distention, diffusely tender but not rigid, normoactive bowel sounds. No rebound, guarding, or rigidity. No masses appreciated. EXTREMITIES: Nontender, good range of motion, no pitting or edema. NEUROLOGICAL: No focal neurological deficits. Moves all extremities spontaneously Motor and sensory grossly intact on exam. PSYCH: Normal mood, normal affect. SKIN: Warm, Dry, normal turgor, no rashes or lesions noted on exposed skin TRAVEL OUTSIDE OF THE [place] IN LAST 30 DAYS: No - Related Data Allergies/Adverse Reactions: meperidine HCl [From Demerol] Allergy (Severe, Verified 06/21/17 08:52) Hallucinations enalapril maleate [From Vasotec] Allergy (Intermediate, Verified 06/21/17 08:52) niacin [Niacin] Allergy (Unknown, Verified 06/21/17 08:52) nisoldipine [From Sular] Allergy (Unknown, Verified 06/21/17 08:52) ramolazme Allergy (Unknown, Uncoded 06/21/17 08:52) Past Medical History - Social History Smoking Status: Never Smoker Family History: Reviewed & Not Pertinent - Past Medical History Cardiac Medical History: Reports: Hx Atrial Fibrillation, Hx Hypercholesterolemia, Hx Hypertension - MEDICATION Denies: Hx Coronary Artery Disease, Hx DVT, Hx Heart Attack, Hx Pulmonary Embolism Pulmonary Medical History: Reports: Hx Bronchitis Denies: Hx Asthma, Hx COPD, Hx Pneumonia, Hx Tuberculosis Neurological Medical History: Denies: Hx Cerebrovascular Accident, Hx Seizures Endocrine Medical History: Reports: Hx Diabetes Mellitus Type 2 - BORDERLINE. Denies: Hx Diabetes Mellitus Type 1, Hx Hyperthyroidism, Hx Hypothyroidism Renal/ Medical History: Denies: Hx Peritoneal Dialysis GI Medical History: Reports: Hx Diverticulitis - Segmental colectomy for same., Hx Gastroesophageal Reflux Disease, Hx Ulcer. Denies: Hx Cirrhosis, Hx Hepatitis, Hx Hiatal Hernia Musculoskeletal Medical History: Reports Hx Arthritis Psychiatric Medical History: Denies: Hx Depression Infectious Medical History: Denies: Hx Hepatitis Past Surgical History: Reports: Hx Cardiac Catheterization - 2x stents, Hx Cardiac Surgery - pacemaker, Hx Cholecystectomy, Hx Coronary Stent, Hx Pacemaker, Other - Segmental colectomy for diverticulitis. Denies: Hx Open Heart Surgery - Immunizations Hx Diphtheria, Pertussis, Tetanus Vaccination: No - UNSURE Hx Pneumococcal Vaccination: 07/01/11 Physical Exam - Vital signs Vitals: Temp Pulse Resp BP Pulse Ox 97.7 F 79 16 140/66 H 100 10/15/18 18:03 10/15/18 18:03 10/15/18 18:03 10/15/18 18:03 10/15/18 18:03 Course - Re-evaluation Re-evalutation: Patient seen and examined vital signs reviewed. Laboratory data and imaging were ordered as appropriate for the patient's presenting symptoms and complaint, with consideration of any critical or life threatening conditions that may be associated with their obtained history and exam as noted above. Patient was treated with IV fluids, morphine and Zofran Results were reviewed when available and demonstrated normal blood work, his creatinine is at his baseline, and not worsened, no leukocytosis, we obtained x-rays, the demonstrated mid to distal small bowel obstruction, I consulted the surgeon, to come see the patient, and give his opinion, on whether the patient needs to be admitted or could be observed at home and if symptoms worsen to return to the ED. Patient was noted to have a mildly supratherapeutic INR of just over 4, surgeon made aware of this. His lactic acid was normal. The patient was re-evaluated and was stable, is not asking for any further pain medication Evaluation was most consistent with small bowel obstruction After discussing with the surgeon, he felt that due to the patient's medical comorbidities, supratherapeutic INR, atrial fibrillation, hypertension, and advanced age, that he would be better off being primarily admitted to the medical service, case there was an issue regarding the patient's current abilities, and he did not suspect immediate need for surgical intervention, but will be happy to consult on the patient and follow through with them, and obtain a small bowel follow-through series in the morning. I did make a call to the evening hospitalist, who initially felt that the patient should be admitted to the hospitalist, I discussed this with the hospitalist, who stated he would call the surgeon to help determine the primary admitting service. Patient will be admitted to the hospitalist service, with surgery on consult. *Note is created using voice recognition software and may contain spelling, syntax or grammatical errors. Laboratory 10/15/18 10/15/18 10/15/18 18:29 18:29 18:29 WBC 7.2 RBC 4.40 Hgb 14.7 Hct 42.2 MCV 96 MCH 33.4 MCHC 34.8 RDW 13.7 Plt Count 195 Seg Neutrophils % 67.1 Lymphocytes % 20.9 Monocytes % 10.6 Eosinophils % 1.2 Basophils % 0.2 Absolute Neutrophils 4.8 Absolute Lymphocytes 1.5 Absolute Monocytes 0.8 Absolute Eosinophils 0.1 Absolute Basophils 0.0 PT 43.2 H INR 4.30 Sodium 140.3 Potassium 4.6 Chloride 103 Carbon Dioxide 27 Anion Gap 10 BUN 33 H Creatinine 1.61 H Est GFR ( Amer) 50 L Est GFR (Non-Af Amer) 41 L Glucose 120 H Lactic Acid Calcium 9.7 Total Bilirubin 1.3 Direct Bilirubin 0.5 H Neonat Total Bilirubin Not Reportable Neonat Direct Bilirubin Not Reportable Neonat Indirect Bili Not Reportable AST 36 ALT 25 Alkaline Phosphatase 102 Total Protein 7.8 Albumin 4.6 Lipase 236.5 Urine Color Urine Appearance Urine pH Ur Specific [place] Urine Protein Urine Glucose (UA) Urine Ketones Urine Blood Urine Nitrite Urine Bilirubin Urine Urobilinogen Ur Leukocyte Esterase Urine WBC (Auto) Urine RBC (Auto) U Hyaline Cast (Auto) Urine Mucus (Auto) Urine Ascorbic Acid 10/15/18 10/15/18 20:50 21:55 WBC RBC Hgb Hct MCV MCH MCHC RDW Plt Count Seg Neutrophils % Lymphocytes % Monocytes % Eosinophils % Basophils % Absolute Neutrophils Absolute Lymphocytes Absolute Monocytes Absolute Eosinophils Absolute Basophils PT INR Sodium Potassium Chloride Carbon Dioxide Anion Gap BUN Creatinine Est GFR ( Amer) Est GFR (Non-Af Amer) Glucose Lactic Acid 1.0 Calcium Total Bilirubin Direct Bilirubin Neonat Total Bilirubin Neonat Direct Bilirubin Neonat Indirect Bili AST ALT Alkaline Phosphatase Total Protein Albumin Lipase Urine Color YELLOW Urine Appearance CLEAR Urine pH 5.0 Ur Specific [place] 1.015 Urine Protein NEGATIVE Urine Glucose (UA) NEGATIVE Urine Ketones NEGATIVE Urine Blood NEGATIVE Urine Nitrite NEGATIVE Urine Bilirubin NEGATIVE Urine Urobilinogen NEGATIVE Ur Leukocyte Esterase NEGATIVE Urine WBC (Auto) 1 Urine RBC (Auto) 1 U Hyaline Cast (Auto) 4 Urine Mucus (Auto) RARE Urine Ascorbic Acid NEGATIVE Abdomen X-Ray 10/15/18 19:41 IMPRESSION: Findings consistent with mid to distal small bowel obstruction. - Vital Signs Vital signs: Temp Pulse Resp BP Pulse Ox 97.7 F 79 16 128/56 H 96 10/15/18 18:03 10/15/18 18:03 10/15/18 23:01 10/15/18 23:00 10/15/18 23:01 - Laboratory Result Diagrams: 10/15/18 18:29 10/15/18 18:29 Laboratory results interpreted by me: 10/15/18 10/15/18 18:29 18:29 PT 43.2 H BUN 33 H Creatinine 1.61 H Est GFR ( Amer) 50 L Est GFR (Non-Af Amer) 41 L Glucose 120 H Direct Bilirubin 0.5 H Discharge - Discharge Clinical Impression: SBO (small bowel obstruction) Condition: Stable Disposition: ADMITTED INPATIENT Admitting Provider: Hospitalist - Dr. Carcamo Unit Admitted: Surgical Floor Referrals: KINGS HODGSON MD [Primary Care Provider] - Follow up as needed
[2018-10-15] MEDS ORDERED: NORMAL SALINE 1000 ML 1,000 ML IV ONE (18:54)
[2018-10-15] MEDS ORDERED: ONDANSETRON HCL INJ/PF 4 MG/2 ML SDV IV ONE (18:54)
[2018-10-15] MEDS ORDERED: MORPHINE SULFATE 10 MG/ML INJ IV ONE (18:54)
[2018-10-15 19:15] LABS: ABSOLUTE NEUT (AUTO) 4.8 10^3/uL (1.7-8.2); BASOPHILS % (AUTO) 0.2 % (0-2); EOSINOPHILS % (AUTO) 1.2 % (0-6); HEMATOCRIT 42.2 % (37.9-51.0); HEMOGLOBIN 14.7 g/dL (13.5-17.0); LYMPHOCYTES % (AUTO) 20.9 % (13-45); MEAN CORPUSCULAR HEMOGLOBIN 33.4 pg (27.0-33.4); MEAN CORPUSCULAR HGB CONC 34.8 g/dL (32.0-36.0); MEAN CORPUSCULAR VOLUME 96 fl (80-97); MONOCYTES % (AUTO) 10.6 % (3-13); PLATELET COUNT 195 10^3/uL (150-450); RED CELL DISTRIBUTION WIDTH 13.7 % (11.5-14.0); SEGMENTED NEUTROPHILS % (AUTO) 67.1 % (42-78); TOTAL CELLS COUNTED % (AUTO) 100 %; WHITE BLOOD COUNT 7.2 10^3/uL (4.0-10.5)
[2018-10-15 19:16] LABS: ABSOLUTE EOSINOPHILS # (AUTO) 0.1 10^3/uL (0.0-0.6); ABSOLUTE LYMPHOCYTES (AUTO) 1.5 10^3/uL (0.5-4.7); ABSOLUTE MONOCYTES (AUTO) 0.8 10^3/uL (0.1-1.4)
[2018-10-15 19:23] LABS: ALANINE AMINOTRANSFERASE 25 U/L (21-72); ALBUMIN 4.6 g/dL (3.5-5.0); ALKALINE PHOSPHATASE 102 U/L (38-126); ANION GAP 10 (5-19); ASPARTATE AMINO TRANSFERASE 36 U/L (17-59); BILIRUBIN,DIRECT 0.5 mg/dL (0.0-0.4); BILIRUBIN,TOTAL 1.3 mg/dL (0.2-1.3); BLOOD UREA NITROGEN 33 mg/dL (7-20); CALCIUM 9.7 mg/dL (8.4-10.2); CARBON DIOXIDE 27 mmol/L (22-30); CHLORIDE 103 mmol/L (98-107); GLUCOSE 120 mg/dL (75-110); LIPASE 236.5 U/L (23-300); POTASSIUM 4.6 mmol/L (3.6-5.0); SODIUM 140.3 mmol/L (137-145); TOTAL PROTEIN 7.8 g/dL (6.3-8.2)
--- NOTE | 2018-10-15 20:10 | RADIOLOGY REPORT (SQ) ---
EXAM DESCRIPTION: XR ABDOMEN 2 VIEWS SUPINE ERECT COMPLETED DATE/TME: 10/15/2018 19:41 CLINICAL HISTORY: 83 years, Male, abdominal distention and pain Findings: No free intraperitoneal air. Moderate dilated loops of small bowel with air-fluid levels in the left side of the abdomen. Status post cholecystectomy. IMPRESSION: Findings consistent with mid to distal small bowel obstruction.
[2018-10-15 20:26] LABS: PROTHROMBIN TIME 43.2 SEC (11.4-15.4)
[2018-10-15 21:07] LABS: APPEARANCE,URINE CLEAR; BILIRUBIN,URINE NEGATIVE (NEGATIVE); COLOR,URINE YELLOW; GLUCOSE, URINE NEGATIVE (NEGATIVE); KETONES,URINE NEGATIVE (NEGATIVE); LEUKOCYTE ESTERASE,URINE NEGATIVE (NEGATIVE); NITRITE,URINE NEGATIVE (NEGATIVE); PROTEIN,URINE NEGATIVE (NEGATIVE); URINE SPECIFIC GRAVITY 1.015; UROBILINOGEN,URINE NEGATIVE mg/dL (<2.0)
--- NOTE | 2018-10-15 22:07 | PDOC CONSULTATION ---
Consultation Consult Date: 10/15/18 Consult reason:: small bowel obstruction History of Present Illness Admission Date/PCP: KINGS HODGSON MD History of Present Illness: ROHIT DIETZ is a 83 year old male with previous hx of sbo, he is post colon surgery a few years ago post open cholecyistectomy and appendectomy. previous hx of sbo, treated here at [facility] non operatively now ith 1 day of increased abd bloating, nausea, no vomiting, +cramping and distension loss of appetite. 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 kidney function GI Medical History: Reports: Diverticulitis - Segmental colectomy for same., Gastroesophageal Reflux Disease Denies: Cirrhosis, Hepatitis, Hiatal Hernia Musculoskeltal Medical History: Reports: Arthritis Psychiatric Medical History: Denies: Depression Hematology: Denies: Anemia, Sickle Cell Disease Past Surgical History Past Surgical History: Reports: Cardiac Catheterization - 2x stents, Cholecystectomy, Coronary Stent, Pacemaker, Other - Segmental colectomy for diverticulitis Social History Smoking Status: Unknown if Ever Smoked Frequency of Alcohol Use: None Hx Recreational Drug Use: No Drugs: None Hx Prescription Drug Abuse: No Family History Family History: Reviewed & Not Pertinent Parental Family History Reviewed: No Children Family History Reviewed: No Sibling(s) Family History Reviewed.: No Medication/Allergy Home Medications: Finasteride [Proscar 5 mg Tablet] 5 mg PO DAILY 12/07/16 Metoprolol Tartrate [Lopressor 100 mg Tablet] 100 mg PO BID 12/07/16 Warfarin Sodium [Coumadin 5 mg Tablet] 5 mg PO DAILY 12/07/16 Aspirin [Aspirin EC] 81 mg PO DAILY 12/08/16 Atorvastatin Calcium [Lipitor 20 mg Tablet] 20 mg PO QAM 12/08/16 Digoxin [Lanoxin 0.125 mg Tablet] 0.125 mg PO QAM 12/08/16 Omeprazole 20 mg PO DAILYP PRN 12/08/16 Potassium Chloride 10 meq PO BID 12/08/16 Albuterol Sulfate [Ventolin Hfa] 2 puff IH Q4 PRN 05/17/17 Besifloxacin HCl [Besivance Drops] 1 drop OP ASDIR 05/17/17 Difluprednate [Durezol] 1 drop OP ASDIR 05/17/17 Diltiazem HCl [Diltiazem 24Hr ER] 360 mg PO QHS 05/17/17 Nepafenac [Ilevro] 1 drop OP ASDIR 05/17/17 Valsartan/Hydrochlorothiazide [Valsartan-Hctz 160-25 mg Tab] 1 tab PO QAM 05/17 Allergies/Adverse Reactions: meperidine HCl [From Demerol] Allergy (Severe, Verified 06/21/17 08:52) Hallucinations enalapril maleate [From Vasotec] Allergy (Intermediate, Verified 06/21/17 08:52) niacin [Niacin] Allergy (Unknown, Verified 06/21/17 08:52) nisoldipine [From Sular] Allergy (Unknown, Verified 06/21/17 08:52) ramolazme Allergy (Unknown, Uncoded 06/21/17 08:52) Physical Exam Vital Signs: Temp Pulse Resp BP Pulse Ox 97.7 F 79 15 124/53 L 98 10/15/18 18:03 10/15/18 18:03 10/15/18 21:01 10/15/18 21:00 10/15/18 21:01 Intake & Output 10/14/18 10/15/18 10/16/18 06:59 06:59 06:59 Intake Total 1000 Balance 1000 Weight 78.2 kg General appearance: PRESENT: no acute distress, cooperative Head exam: PRESENT: atraumatic, normocephalic Eye exam: PRESENT: EOMI, PERRLA Mouth exam: PRESENT: dry mucosa Neck exam: PRESENT: carotid bruit, JVD Respiratory exam: PRESENT: clear to auscultation catherine, unlabored Pulses: PRESENT: normal femoral pulses, +2 pedal pulses bilateral Vascular exam: PRESENT: normal capillary refill Rectal exam: PRESENT: other - abd distended, tympanitic,min tenderness decreased bs Gentrourinary exam: PRESENT: other - nl testicals, no hernia Musculoskeletal exam: PRESENT: ambulatory Neurological exam: PRESENT: alert, altered, oriented to time, oriented to situation Skin exam: PRESENT: dry Results Laboratory Results: 10/15/18 18:29 10/15/18 18:29 10/15/18 10/15/18 10/15/18 18:29 18:29 20:50 WBC 7.2 RBC 4.40 Hgb 14.7 Hct 42.2 MCV 96 MCH 33.4 MCHC 34.8 RDW 13.7 Plt Count 195 Seg Neutrophils % 67.1 Lymphocytes % 20.9 Monocytes % 10.6 Eosinophils % 1.2 Basophils % 0.2 Absolute Neutrophils 4.8 Absolute Lymphocytes 1.5 Absolute Monocytes 0.8 Absolute Eosinophils 0.1 Absolute Basophils 0.0 Sodium 140.3 Potassium 4.6 Chloride 103 Carbon Dioxide 27 Anion Gap 10 BUN 33 H Creatinine 1.61 H Est GFR ( Amer) 50 L Est GFR (Non-Af Amer) 41 L Glucose 120 H Calcium 9.7 Total Bilirubin 1.3 AST 36 ALT 25 Alkaline Phosphatase 102 Total Protein 7.8 Albumin 4.6 Lipase 236.5 Urine Color YELLOW Urine Appearance CLEAR Urine pH 5.0 Ur Specific [place] 1.015 Urine Protein NEGATIVE Urine Glucose (UA) NEGATIVE Urine Ketones NEGATIVE Urine Blood NEGATIVE Urine Nitrite NEGATIVE Ur Leukocyte Esterase NEGATIVE Urine WBC (Auto) 1 Urine RBC (Auto) 1 Impressions: Abdomen X-Ray 10/15/18 19:41 IMPRESSION: Findings consistent with mid to distal small bowel obstruction. Status: Image reviewed by me - ct and kub reviwed pt with large amts of stool in colon and rectum 1 loop of small bowel distended no obvious pt of trasnition Assessment & Plan - Plan Summary Plan Summary: pt with 1 day of abd distension ct obtained in er, concerning for ileus vs sbo recommend, admit pt on warfarin with elevatedi inr need to hold warfarn and allow inr to normalize as it is too high and he may need a surgical procedure would make npo for now although I dont think he needs an ng tube will follow along with medicine in am will order a small bowel series
[2018-10-15] MEDS ORDERED: PANTOPRAZOLE SODIUM 40 MG VIAL IV ONE (22:41)
[2018-10-15] MEDS ORDERED: DEXTROSE 40% GEL 15 GM TUBE PO PRN ×2 (23:12)
[2018-10-15] MEDS ORDERED: IPRATROPIUM/ALBUTEROL 0.5-2.5 MG/3 ML AMPUL NEB PRN (23:12)
[2018-10-15] MEDS ORDERED: ONDANSETRON HCL INJ/PF 4 MG/2 ML SDV IV PRN (23:12)
[2018-10-15] MEDS ORDERED: DEXTROSE 50%-WATER 25 GM/50 ML DISP.SYRIN IV PRN ×2 (23:12)
[2018-10-15] MEDS ORDERED: METOPROLOL TARTRATE PF/INJ 5 MG/5 ML SDV IV PRN (23:12)
[2018-10-15] MEDS ORDERED: GLUCAGON,HUMAN RECOMB 1 MG INJ SUBCUT PRN (23:12)
[2018-10-16 00:02] LABS: PHOSPHORUS 3.2 mg/dL (2.5-4.5)
--- NOTE | 2018-10-16 05:48 | PDOC H&P ---
History of Present Illness Admission Date/PCP: 10/15/18 23:09 KINGS HODGSON MD Patient complains of: Abdominal pain and distention History of Present Illness: ROHIT DIETZ is a 83 year old male with a past medical history of coronary artery disease with stents x2 greater than 10 years ago, A. fib on Coumadin, status post permanent pacemaker, CKD 3, dyslipidemia, open cholecystectomy remotely and bowel resection for diverticulitis in 2002. Patient presents with 4 days of abdominal pain, distention and nausea significantly worsened over the last 24 hours without flatus. In the emergency room he has a CT suggestive of ileus versus small bowel obstruction. Chemistry reveals creatinine at baseline and a supratherapeutic INR of 4.3 without evidence of bleeding. Hospitalist is consulted for medical management. Past Medical History Cardiac Medical History: Reports: Atrial Fibrillation, Hyperlipidema, Hyperten lauryn - MEDICATION Denies: Coronary Artery Disease, DVT, Myocardial Infarction, Pulmonary Embolism Pulmonary Medical History: Reports: Bronchitis Denies: Asthma, Chronic Obstructive Pulmonary Disease (COPD), Pneumonia, Tuberculosis Neurological Medical History: Denies: Seizures Endocrine Medical History: Reports: Diabetes Mellitus Type 2 - BORDERLINE Denies: Diabetes Mellitus Type 1, Hyperthyroidism, Hypothyroidism Renal/ Medical History: Reports: End Stage Renal Disease - stage 3 kidney f unction GI Medical History: Reports: Diverticulitis - Segmental colectomy for same., Gastroesophageal Reflux Disease Denies: Cirrhosis, Hepatitis, Hiatal Hernia Musculoskeltal Medical History: Reports: Arthritis Psychiatric Medical History: Denies: Depression Hematology: Denies: Anemia, Sickle Cell Disease Past Surgical History Past Surgical History: Reports: Cardiac Catheterization - 2x stents, Cholecystectomy, Coronary Stent, Pacemaker, Other - Segmental colectomy for diverticulitis Social History Information Source: Patient Lives with: Spouse/Significant other Smoking Status: Never Smoker Frequency of Alcohol Use: None Hx Recreational Drug Use: No Drugs: None Hx Prescription Drug Abuse: No - Advance Directive Resuscitation Status: Full Code Family History Family History: Hypertension Parental Family History Reviewed: Yes Children Family History Reviewed: Yes Sibling(s) Family History Reviewed.: Yes Medication/Allergy Home Medications: Finasteride [Proscar 5 mg Tablet] 5 mg PO DAILY 12/07/16 Metoprolol Tartrate [Lopressor 100 mg Tablet] 100 mg PO BID 12/07/16 Warfarin Sodium [Coumadin 5 mg Tablet] 5 mg PO DAILY 12/07/16 Aspirin [Aspirin EC] 81 mg PO DAILY 12/08/16 Atorvastatin Calcium [Lipitor 20 mg Tablet] 20 mg PO QAM 12/08/16 Digoxin [Lanoxin 0.125 mg Tablet] 0.125 mg PO QAM 12/08/16 Omeprazole 20 mg PO DAILYP PRN 12/08/16 Potassium Chloride 10 meq PO BID 12/08/16 Albuterol Sulfate [Ventolin Hfa] 2 puff IH Q4 PRN 05/17/17 Besifloxacin HCl [Besivance Drops] 1 drop OP ASDIR 05/17/17 Difluprednate [Durezol] 1 drop OP ASDIR 05/17/17 Diltiazem HCl [Diltiazem 24Hr ER] 360 mg PO QHS 05/17/17 Nepafenac [Ilevro] 1 drop OP ASDIR 05/17/17 Valsartan/Hydrochlorothiazide [Valsartan-Hctz 160-25 mg Tab] 1 tab PO QAM 05/17/17 Lisinopril [Prinivil 10 mg Tablet] 20 mg PO ONCE 10/15/18 Metoprolol Tartrate [Lopressor 100 mg Tablet] 1 tab PO ONCE 10/15/18 Allergies/Adverse Reactions: meperidine HCl [From Demerol] Allergy (Severe, Verified 06/21/17 08:52) Hallucinations enalapril maleate [From Vasotec] Allergy (Intermediate, Verified 06/21/17 08:52) niacin [Niacin] Allergy (Unknown, Verified 06/21/17 08:52) nisoldipine [From Sular] Allergy (Unknown, Verified 06/21/17 08:52) ramolazme Allergy (Unknown, Uncoded 06/21/17 08:52) Review of Systems Constitutional: PRESENT: as per HPI, anorexia, fatigue. ABSENT: chills, fever(s), headache(s), weight gain, weight loss Eyes: ABSENT: visual disturbances Ears: ABSENT: hearing changes Cardiovascular: ABSENT: chest pain, dyspnea on exertion, edema, orthropnea, palpitations Respiratory: ABSENT: cough, hemoptysis Gastrointestinal: PRESENT: as per HPI, abdominal pain, bloating, constipation, nausea. ABSENT: diarrhea, hematemesis, hematochezia Genitourinary: ABSENT: dysuria, hematuria Musculoskeletal: ABSENT: joint swelling Integumentary: ABSENT: rash, wounds Neurological: ABSENT: abnormal gait, abnormal speech, confusion, dizziness, focal weakness, syncope Psychiatric: ABSENT: anxiety, depression, homidical ideation, suicidal ideation Endocrine: ABSENT: cold intolerance, heat intolerance, polydipsia, polyuria Hematologic/Lymphatic: ABSENT: easy bleeding, easy bruising Physical Exam Vital Signs: Temp Pulse Resp BP Pulse Ox 97.7 F 79 15 125/65 98 10/15/18 18:03 10/15/18 18:03 10/16/18 01:01 10/16/18 01:00 10/16/18 01:01 Intake & Output 10/14/18 10/15/18 10/16/18 11:59 11:59 11:59 Intake Total 1000 Balance 1000 Weight 78.2 kg General appearance: PRESENT: cooperative, mild distress, well-developed, well- nourished. ABSENT: disheveled Head exam: PRESENT: atraumatic, normocephalic Eye exam: PRESENT: conjunctiva pink, EOMI, PERRLA. ABSENT: scleral icterus Ear exam: PRESENT: normal external ear exam Mouth exam: PRESENT: moist, tongue midline Neck exam: ABSENT: carotid bruit, JVD, lymphadenopathy, thyromegaly Respiratory exam: PRESENT: clear to auscultation catherine. ABSENT: rales, rhonchi, wheezes Cardiovascular exam: PRESENT: irregular rhythm, RRR. ABSENT: diastolic murmur, rubs, systolic murmur Pulses: PRESENT: normal dorsalis pedis pul Vascular exam: PRESENT: normal capillary refill GI/Abdominal exam: PRESENT: diminished bowel sounds, distended, hypoactive bowel sounds, normal bowel sounds, soft, tenderness. ABSENT: guarding, mass, organolmegaly, rebound Rectal exam: PRESENT: deferred Extremities exam: PRESENT: full ROM. ABSENT: calf tenderness, clubbing, pedal edema Neurological exam: PRESENT: alert, awake, oriented to person, oriented to place, oriented to time, oriented to situation, CN II-XII grossly intact. ABSENT: motor sensory deficit Psychiatric exam: PRESENT: appropriate affect, normal mood. ABSENT: homicidal ideation, suicidal ideation Skin exam: PRESENT: dry, intact, warm. ABSENT: cyanosis, rash Results Laboratory Results: 10/15/18 18:29 10/15/18 18:29 10/15/18 10/15/18 10/15/18 18:29 18:29 18:29 WBC 7.2 RBC 4.40 Hgb 14.7 Hct 42.2 MCV 96 MCH 33.4 MCHC 34.8 RDW 13.7 Plt Count 195 Seg Neutrophils % 67.1 Lymphocytes % 20.9 Monocytes % 10.6 Eosinophils % 1.2 Basophils % 0.2 Absolute Neutrophils 4.8 Absolute Lymphocytes 1.5 Absolute Monocytes 0.8 Absolute Eosinophils 0.1 Absolute Basophils 0.0 Sodium 140.3 Potassium 4.6 Chloride 103 Carbon Dioxide 27 Anion Gap 10 BUN 33 H Creatinine 1.61 H Est GFR ( Amer) 50 L Est GFR (Non-Af Amer) 41 L Glucose 120 H Lactic Acid Calcium 9.7 Phosphorus 3.2 Magnesium 2.3 Total Bilirubin 1.3 AST 36 ALT 25 Alkaline Phosphatase 102 Total Protein 7.8 Albumin 4.6 Lipase 236.5 Urine Color Urine Appearance Urine pH Ur Specific [place] Urine Protein Urine Glucose (UA) Urine Ketones Urine Blood Urine Nitrite Ur Leukocyte Esterase Urine WBC (Auto) Urine RBC (Auto) 10/15/18 10/15/18 20:50 21:55 WBC RBC Hgb Hct MCV MCH MCHC RDW Plt Count Seg Neutrophils % Lymphocytes % Monocytes % Eosinophils % Basophils % Absolute Neutrophils Absolute Lymphocytes Absolute Monocytes Absolute Eosinophils Absolute Basophils Sodium Potassium Chloride Carbon Dioxide Anion Gap BUN Creatinine Est GFR ( Amer) Est GFR (Non-Af Amer) Glucose Lactic Acid 1.0 Calcium Phosphorus Magnesium Total Bilirubin AST ALT Alkaline Phosphatase Total Protein Albumin Lipase Urine Color YELLOW Urine Appearance CLEAR Urine pH 5.0 Ur Specific [place] 1.015 Urine Protein NEGATIVE Urine Glucose (UA) NEGATIVE Urine Ketones NEGATIVE Urine Blood NEGATIVE Urine Nitrite NEGATIVE Ur Leukocyte Esterase NEGATIVE Urine WBC (Auto) 1 Urine RBC (Auto) 1 Impressions: Abdomen X-Ray 10/15/18 19:41 IMPRESSION: Findings consistent with mid to distal small bowel obstruction. Assessment & Plan - Diagnosis (1) Chronic kidney disease Is this a current diagnosis for this admission?: Yes Plan: Avoid nephrotoxic meds and doses, gentle IV fluid while n.p.o. follow-up chemistry (2) Supratherapeutic INR Is this a current diagnosis for this admission?: Yes Plan: FFP as needed surgery or active bleed, Coumadin held (3) SBO (small bowel obstruction) Is this a current diagnosis for this admission?: Yes Plan: Per surgery (4) Atrial fibrillation Qualifiers: Atrial fibrillation type: chronic Qualified Code(s): I48.2 - Chronic atrial fibrillation Is this a current diagnosis for this admission?: Yes Plan: Currently paced, continue outpatient beta-desiree via IV, hold Coumadin while supratherapeutic. - Time Time Spent: 50 to 70 Minutes
[2018-10-16 05:49] LABS: ABSOLUTE EOSINOPHILS # (AUTO) 0.2 10^3/uL (0.0-0.6); ABSOLUTE LYMPHOCYTES (AUTO) 1.3 10^3/uL (0.5-4.7); ABSOLUTE MONOCYTES (AUTO) 0.7 10^3/uL (0.1-1.4); ABSOLUTE NEUT (AUTO) 3.7 10^3/uL (1.7-8.2); BASOPHILS % (AUTO) 0.3 % (0-2); EOSINOPHILS % (AUTO) 2.7 % (0-6); HEMATOCRIT 36.5 % (37.9-51.0); HEMOGLOBIN 12.8 g/dL (13.5-17.0); LYMPHOCYTES % (AUTO) 22.2 % (13-45); MEAN CORPUSCULAR HEMOGLOBIN 33.1 pg (27.0-33.4); MEAN CORPUSCULAR HGB CONC 35.1 g/dL (32.0-36.0); MEAN CORPUSCULAR VOLUME 94 fl (80-97); PLATELET COUNT 135 10^3/uL (150-450); RED BLOOD COUNT 3.87 10^6/uL (4.35-5.55); RED CELL DISTRIBUTION WIDTH 13.1 % (11.5-14.0); SEGMENTED NEUTROPHILS % (AUTO) 62.8 % (42-78); TOTAL CELLS COUNTED % (AUTO) 100 %; WHITE BLOOD COUNT 5.9 10^3/uL (4.0-10.5)
[2018-10-16] MEDS ORDERED: NORMAL SALINE 1000 ML 1,000 ML IV PRN (06:00)
[2018-10-16 06:09] LABS: ALANINE AMINOTRANSFERASE 32 U/L (21-72); ALBUMIN 3.4 g/dL (3.5-5.0); ALKALINE PHOSPHATASE 92 U/L (38-126); ANION GAP 7 (5-19); ASPARTATE AMINO TRANSFERASE 44 U/L (17-59); BILIRUBIN,DIRECT 0.4 mg/dL (0.0-0.4); BILIRUBIN,TOTAL 1.3 mg/dL (0.2-1.3); BLOOD UREA NITROGEN 30 mg/dL (7-20); CARBON DIOXIDE 24 mmol/L (22-30); CHLORIDE 109 mmol/L (98-107); GLUCOSE 92 mg/dL (75-110); POTASSIUM 4.1 mmol/L (3.6-5.0); SODIUM 139.8 mmol/L (137-145); TOTAL PROTEIN 6.1 g/dL (6.3-8.2)
[2018-10-16 07:09] LABS: INTERNATIONAL RATION (INR) 4.07
[2018-10-16 07:16] LABS: PROTHROMBIN TIME 41.4 SEC (11.4-15.4)
[2018-10-16] MEDS ORDERED: MAGNESIUM CITRATE 296 ML BOTTLE PO ONE (09:07)
--- NOTE | 2018-10-16 09:14 | PDOC PROGRESS REPORT ---
Subjective Progress Note for:: 10/16/18 Subjective:: comfortable, no abdominal pain, no n/v, flatus this AM Reason For Visit: SBO Physical Exam Vital Signs: Temp Pulse Resp BP Pulse Ox 97.9 F 72 16 129/55 H 97 10/16/18 08:25 10/16/18 08:40 10/16/18 08:40 10/16/18 08:25 10/16/18 08:40 Intake & Output 10/15/18 10/16/18 10/17/18 06:59 06:59 06:59 Intake Total 1000 Balance 1000 Weight 78.7 kg General appearance: PRESENT: no acute distress GI/Abdominal exam: PRESENT: distended - slightly, soft Results Laboratory Results: 10/16/18 05:09 10/16/18 05:09 10/15/18 10/15/18 10/15/18 18:29 18:29 18:29 WBC 7.2 RBC 4.40 Hgb 14.7 Hct 42.2 MCV 96 MCH 33.4 MCHC 34.8 RDW 13.7 Plt Count 195 Seg Neutrophils % 67.1 Lymphocytes % 20.9 Monocytes % 10.6 Eosinophils % 1.2 Basophils % 0.2 Absolute Neutrophils 4.8 Absolute Lymphocytes 1.5 Absolute Monocytes 0.8 Absolute Eosinophils 0.1 Absolute Basophils 0.0 Sodium 140.3 Potassium 4.6 Chloride 103 Carbon Dioxide 27 Anion Gap 10 BUN 33 H Creatinine 1.61 H Est GFR ( Amer) 50 L Est GFR (Non-Af Amer) 41 L Glucose 120 H Lactic Acid Calcium 9.7 Phosphorus 3.2 Magnesium 2.3 Total Bilirubin 1.3 AST 36 ALT 25 Alkaline Phosphatase 102 Total Protein 7.8 Albumin 4.6 Lipase 236.5 Urine Color Urine Appearance Urine pH Ur Specific [place] Urine Protein Urine Glucose (UA) Urine Ketones Urine Blood Urine Nitrite Ur Leukocyte Esterase Urine WBC (Auto) Urine RBC (Auto) 10/15/18 10/15/18 10/16/18 20:50 21:55 05:09 WBC 5.9 RBC 3.87 L Hgb 12.8 L Hct 36.5 L MCV 94 MCH 33.1 MCHC 35.1 RDW 13.1 Plt Count 135 L Seg Neutrophils % 62.8 Lymphocytes % 22.2 Monocytes % 12.0 Eosinophils % 2.7 Basophils % 0.3 Absolute Neutrophils 3.7 Absolute Lymphocytes 1.3 Absolute Monocytes 0.7 Absolute Eosinophils 0.2 Absolute Basophils 0.0 Sodium Potassium Chloride Carbon Dioxide Anion Gap BUN Creatinine Est GFR ( Amer) Est GFR (Non-Af Amer) Glucose Lactic Acid 1.0 Calcium Phosphorus Magnesium Total Bilirubin AST ALT Alkaline Phosphatase Total Protein Albumin Lipase Urine Color YELLOW Urine Appearance CLEAR Urine pH 5.0 Ur Specific [place] 1.015 Urine Protein NEGATIVE Urine Glucose (UA) NEGATIVE Urine Ketones NEGATIVE Urine Blood NEGATIVE Urine Nitrite NEGATIVE Ur Leukocyte Esterase NEGATIVE Urine WBC (Auto) 1 Urine RBC (Auto) 1 10/16/18 05:09 WBC RBC Hgb Hct MCV MCH MCHC RDW Plt Count Seg Neutrophils % Lymphocytes % Monocytes % Eosinophils % Basophils % Absolute Neutrophils Absolute Lymphocytes Absolute Monocytes Absolute Eosinophils Absolute Basophils Sodium 139.8 Potassium 4.1 Chloride 109 H Carbon Dioxide 24 Anion Gap 7 BUN 30 H Creatinine 1.42 H Est GFR ( Amer) 57 L Est GFR (Non-Af Amer) 47 L Glucose 92 Lactic Acid Calcium 9.0 Phosphorus Magnesium Total Bilirubin 1.3 AST 44 ALT 32 Alkaline Phosphatase 92 Total Protein 6.1 L Albumin 3.4 L Lipase Urine Color Urine Appearance Urine pH Ur Specific [place] Urine Protein Urine Glucose (UA) Urine Ketones Urine Blood Urine Nitrite Ur Leukocyte Esterase Urine WBC (Auto) Urine RBC (Auto) Impressions: Abdomen X-Ray 10/15/18 19:41 IMPRESSION: Findings consistent with mid to distal small bowel obstruction. Assessment & Plan - Diagnosis (1) Partial obstruction of small intestine Is this a current diagnosis for this admission?: Yes - Plan Summary Plan Summary: A/ S/p colon resection patient admitted for obstipation last night XRay abdomen significant for partial SBO, recurrent Flatus and partially soft abdomen this AM improved BUN/Creatinine after aggressive IV hydration P/ Hold off on any Radiographic studies this AM Magnesium citrate followed by plenty of water to stimulate the intestine today If no results, CT scan A/P wit oral contrast will be ordered continue IV Hydration
[2018-10-16] MEDS: PANTOPRAZOLE SODIUM 40 MG VIAL IV SCH ×2 (10:02→21:55)
--- NOTE | 2018-10-16 12:53 | PDOC PROGRESS REPORT ---
Subjective Progress Note for:: 10/16/18 Subjective:: 10/16/2018 patient was admitted for abdominal pain and distention. Admission diagnosis is highly S versus small bowel obstruction. Surgical evaluation was done. Patient still did not have any bowel movements. Is taking mag citrate. Reason For Visit: SBO Physical Exam Vital Signs: Temp Pulse Resp BP Pulse Ox 97.9 F 72 16 129/55 H 97 10/16/18 08:25 10/16/18 08:40 10/16/18 08:40 10/16/18 08:25 10/16/18 08:40 Intake & Output 10/15/18 10/16/18 10/17/18 06:59 06:59 06:59 Intake Total 1000 Balance 1000 Weight 78.7 kg General appearance: PRESENT: no acute distress Head exam: PRESENT: atraumatic Eye exam: PRESENT: PERRLA Mouth exam: PRESENT: moist Neck exam: ABSENT: carotid bruit, JVD, lymphadenopathy, thyromegaly Respiratory exam: PRESENT: clear to auscultation catherine. ABSENT: rales, rhonchi, wheezes Cardiovascular exam: PRESENT: irregular rhythm, rubs, systolic murmur. ABSENT: diastolic murmur GI/Abdominal exam: PRESENT: soft. ABSENT: normal bowel sounds, tenderness Extremities exam: PRESENT: full ROM. ABSENT: calf tenderness, clubbing, pedal edema Neurological exam: PRESENT: alert, awake, oriented to person, oriented to place, oriented to time, oriented to situation, CN II-XII grossly intact. ABSENT: motor sensory deficit Psychiatric exam: PRESENT: appropriate affect, normal mood. ABSENT: homicidal ideation, suicidal ideation Results Laboratory Results: 10/16/18 05:09 10/16/18 05:09 10/15/18 10/15/18 10/15/18 18:29 18:29 18:29 WBC 7.2 RBC 4.40 Hgb 14.7 Hct 42.2 MCV 96 MCH 33.4 MCHC 34.8 RDW 13.7 Plt Count 195 Seg Neutrophils % 67.1 Lymphocytes % 20.9 Monocytes % 10.6 Eosinophils % 1.2 Basophils % 0.2 Absolute Neutrophils 4.8 Absolute Lymphocytes 1.5 Absolute Monocytes 0.8 Absolute Eosinophils 0.1 Absolute Basophils 0.0 Sodium 140.3 Potassium 4.6 Chloride 103 Carbon Dioxide 27 Anion Gap 10 BUN 33 H Creatinine 1.61 H Est GFR ( Amer) 50 L Est GFR (Non-Af Amer) 41 L Glucose 120 H Lactic Acid Calcium 9.7 Phosphorus 3.2 Magnesium 2.3 Total Bilirubin 1.3 AST 36 ALT 25 Alkaline Phosphatase 102 Total Protein 7.8 Albumin 4.6 Lipase 236.5 Urine Color Urine Appearance Urine pH Ur Specific [place] Urine Protein Urine Glucose (UA) Urine Ketones Urine Blood Urine Nitrite Ur Leukocyte Esterase Urine WBC (Auto) Urine RBC (Auto) 10/15/18 10/15/18 10/16/18 20:50 21:55 05:09 WBC 5.9 RBC 3.87 L Hgb 12.8 L Hct 36.5 L MCV 94 MCH 33.1 MCHC 35.1 RDW 13.1 Plt Count 135 L Seg Neutrophils % 62.8 Lymphocytes % 22.2 Monocytes % 12.0 Eosinophils % 2.7 Basophils % 0.3 Absolute Neutrophils 3.7 Absolute Lymphocytes 1.3 Absolute Monocytes 0.7 Absolute Eosinophils 0.2 Absolute Basophils 0.0 Sodium Potassium Chloride Carbon Dioxide Anion Gap BUN Creatinine Est GFR ( Amer) Est GFR (Non-Af Amer) Glucose Lactic Acid 1.0 Calcium Phosphorus Magnesium Total Bilirubin AST ALT Alkaline Phosphatase Total Protein Albumin Lipase Urine Color YELLOW Urine Appearance CLEAR Urine pH 5.0 Ur Specific [place] 1.015 Urine Protein NEGATIVE Urine Glucose (UA) NEGATIVE Urine Ketones NEGATIVE Urine Blood NEGATIVE Urine Nitrite NEGATIVE Ur Leukocyte Esterase NEGATIVE Urine WBC (Auto) 1 Urine RBC (Auto) 1 10/16/18 05:09 WBC RBC Hgb Hct MCV MCH MCHC RDW Plt Count Seg Neutrophils % Lymphocytes % Monocytes % Eosinophils % Basophils % Absolute Neutrophils Absolute Lymphocytes Absolute Monocytes Absolute Eosinophils Absolute Basophils Sodium 139.8 Potassium 4.1 Chloride 109 H Carbon Dioxide 24 Anion Gap 7 BUN 30 H Creatinine 1.42 H Est GFR ( Amer) 57 L Est GFR (Non-Af Amer) 47 L Glucose 92 Lactic Acid Calcium 9.0 Phosphorus Magnesium Total Bilirubin 1.3 AST 44 ALT 32 Alkaline Phosphatase 92 Total Protein 6.1 L Albumin 3.4 L Lipase Urine Color Urine Appearance Urine pH Ur Specific [place] Urine Protein Urine Glucose (UA) Urine Ketones Urine Blood Urine Nitrite Ur Leukocyte Esterase Urine WBC (Auto) Urine RBC (Auto) Impressions: Abdomen X-Ray 10/15/18 19:41 IMPRESSION: Findings consistent with mid to distal small bowel obstruction. Assessment & Plan - Diagnosis (1) Partial obstruction of small intestine Is this a current diagnosis for this admission?: Yes Plan: 10/16/2018 patient has history of colon resection. Seen by the surgeon x-ray of the abdomen suggestive of small bowel obstruction which is recurrent. As per the surgeon plan is to hold off any radiological studies until morning. Recommended magnesium citrate followed by plenty of water to simulate the intestine. If it does not work out plan is to do the CT with oral contrast tomorrow. In the meantime as per the surgical recommendations we will continue the IV hydration. (2) Supratherapeutic INR Is this a current diagnosis for this admission?: Yes Plan: 10/16/2018 patient has history of atrial fibrillation and also pacemaker is on Coumadin at home INR is supratherapeutic which is 4.3 today and the plan is to repeat the INR tomorrow. (3) Atrial fibrillation Qualifiers: Atrial fibrillation type: chronic Qualified Code(s): I48.2 - Chronic atrial fibrillation Is this a current diagnosis for this admission?: Yes Plan: Patient has history of atrial fibrillation on Coumadin be going to hold off Coumadin today recheck INR tomorrow today's INR is 4.03. - Time Time Spent with patient: 15-24 minutes Medications reviewed and adjusted accordingly: Yes Anticipated discharge: Home
[2018-10-17 06:39] LABS: INTERNATIONAL RATION (INR) 3.27; PROTHROMBIN TIME 34.8 SEC (11.4-15.4)
--- NOTE | 2018-10-17 09:34 | PDOC PROGRESS REPORT ---
Subjective Progress Note for:: 10/17/18 Subjective:: no c./o, bowel function returned Reason For Visit: SBO Physical Exam Vital Signs: Temp Pulse Resp BP Pulse Ox 98.0 F 60 16 136/57 H 98 10/17/18 03:34 10/17/18 07:00 10/17/18 03:34 10/17/18 03:34 10/17/18 03:34 Intake & Output 10/16/18 10/17/18 10/18/18 06:59 06:59 06:59 Intake Total 1000 118 Balance 1000 118 Weight 78.7 kg 78.1 kg GI/Abdominal exam: PRESENT: normal bowel sounds, soft Results Laboratory Results: 10/16/18 05:09 10/16/18 05:09 Impressions: Abdomen X-Ray 10/15/18 19:41 IMPRESSION: Findings consistent with mid to distal small bowel obstruction. Assessment & Plan - Diagnosis (1) Partial obstruction of small intestine Is this a current diagnosis for this admission?: Yes - Plan Summary Plan Summary: A/ resolved partial small bowel obstruction pateint comfortable bowel function returned B/ Ok to discharge today f/u with Surgery clinic with SANT[facility]ots in 2 weeks follow a low residue, no vegetable fibers (salad, fruit), no fiber based laxatives (Metamucil, Fiberall) Drink plenty f fluids in between and during meals
[2018-10-17] MEDS: PANTOPRAZOLE SODIUM 40 MG VIAL IV SCH (11:02)
[2018-10-17 15:11] VITALS: BP 145/56
--- NOTE | 2018-10-17 15:50 | PDOC DISCHARGE SUMMARY ---
General - Admit/Disc Date/PCP Admission Date/Primary Care Provider: 10/15/18 23:09 KINGS HODGSON MD Discharge Date: 10/17/18 - Discharge Diagnosis (1) Partial obstruction of small intestine Is this a current diagnosis for this admission?: Yes Summary: 10/16/2018 patient has history of colon resection. Seen by the surgeon x-ray of the abdomen suggestive of small bowel obstruction which is recurrent. As per the surgeon plan is to hold off any radiological studies until morning. Recommended magnesium citrate followed by plenty of water to simulate the intestine. If it does not work out plan is to do the CT with oral contrast tomorrow. In the meantime as per the surgical recommendations we will continue the IV hydration. 10/17/2018-patient was admitted with partial small bowel obstruction. He has 3 bowel movements. That was yesterday he does not have any bowel movement today the surgical team saw the patient today recommended to discharge home and follow-up in the surgical office in 1-2 weeks. Discussed the plan of care with the patient patient agreed to go home today. Small bowel obstruction was resolved. (2) Supratherapeutic INR Is this a current diagnosis for this admission?: Yes Summary: 10/16/2018 patient has history of atrial fibrillation and also pacemaker is on Coumadin at home INR is supratherapeutic which is 4.3 today and the plan is to repeat the INR tomorrow. 10/17/2018-patient has history of atrial fibrillation on Coumadin. INR is 4.3 at the time of admission Coumadin is on hold. INR today is 3.27. Patient was advised to restart Coumadin from tomorrow. Will advised to follow-up with primary care physician to check INR in 3-5 days. Should agreed and verbalized r branden. (3) Atrial fibrillation Is this a current diagnosis for this admission?: Yes Summary: 10/16/2018 patient has history of atrial fibrillation and also pacemaker is on Coumadin at home INR is supratherapeutic which is 4.3 today and the plan is to repeat the INR tomorrow. 10/17/2018 patient has chronic atrial fibrillation on Coumadin no problems during the hospital stay no complaints of chest pain. - Additional Information Resuscitation Status: Full Code Discharge Diet: Cardiac Discharge Activity: Activity As Tolerated Home Medications: Aspirin [Adult Low Dose Aspirin EC] 81 mg PO DAILY 10/16/18 Atorvastatin Calcium [Lipitor 20 mg Tablet] 20 mg PO QHS 10/16/18 Digoxin [Lanoxin 0.125 mg Tablet] 0.125 mg PO MOTUWETHFR 10/16/18 Diltiazem HCl [Cardizem Cd 240 mg Capsule.cr] 240 mg PO DAILY 10/16/18 Ergocalciferol (Vitamin D2) [Drisdol 50,000 unit (1.25MG) Capsule] 50,000 unit PO SA 10/16/18 Fenofibrate Nanocrystallized [Tricor 145 mg Tablet] 145 mg PO DAILY 10/16/18 Finasteride [Proscar 5 mg Tablet] 5 mg PO DAILY 10/16/18 Hydrochlorothiazide [Hydrodiuril 25 mg Tablet] 25 mg PO QAM 10/16/18 Losartan Potassium [Cozaar 50 mg Tablet] 50 mg PO DAILY 10/16/18 Magnesium Oxide [Mag-Ox 400 mg Tablet] 400 mg PO DAILY 10/16/18 Metoprolol Succinate [Toprol XL 100 mg Tablet] 100 mg PO BID 10/16/18 Potassium Chloride [Klor-Con 10 Meq Capsule ER] 10 meq PO BID 10/16/18 Warfarin Sodium [Coumadin 5 mg Tablet] 5 mg PO QPM 10/16/18 History of Present Illness History of Present Illness: ROHIT DIETZ is a 83 year old male with a past medical history of coronary artery disease with stents x2 greater than 10 years ago, A. fib on Coumadin, status post permanent pacemaker, CKD 3, dyslipidemia, open cholecystectomy remotely and bowel resection for diverticulitis in 2002. Patient presents with 4 days of abdominal pain, distention and nausea significantly worsened over the last 24 hours without flatus. In the emergency room he has a CT suggestive of ileus versus small bowel obstruction. Chemistry reveals creatinine at baseline and a suprathe rapeutic INR of 4.3 without evidence of bleeding. Hospitalist is consulted for medical managemen Physical Exam Vital Signs: Temp Pulse Resp BP Pulse Ox 98.4 F 60 16 145/56 H 98 10/17/18 14:00 10/17/18 14:00 10/17/18 14:00 10/17/18 14:00 10/17/18 14:00 Intake & Output 10/16/18 10/17/18 10/18/18 06:59 06:59 06:59 Intake Total 1000 118 Balance 1000 118 Weight 78.7 kg 78.1 kg General appearance: PRESENT: no acute distress Head exam: PRESENT: atraumatic Eye exam: PRESENT: PERRLA Mouth exam: PRESENT: moist Neck exam: ABSENT: carotid bruit, JVD, lymphadenopathy, thyromegaly Respiratory exam: PRESENT: clear to auscultation catherine. ABSENT: rales, rhonchi, wheezes Cardiovascular exam: PRESENT: diastolic murmur, irregular rhythm, rubs, systolic murmur, tachycardia GI/Abdominal exam: PRESENT: normal bowel sounds, soft. ABSENT: distended, guarding, mass, organolmegaly, rebound, tenderness Extremities exam: PRESENT: full ROM. ABSENT: calf tenderness, clubbing, pedal edema Neurological exam: PRESENT: alert, awake, oriented to person, oriented to place, oriented to time, oriented to situation, CN II-XII grossly intact. ABSENT: motor sensory deficit Psychiatric exam: PRESENT: appropriate affect, normal mood. ABSENT: homicidal ideation, suicidal ideation Results Laboratory Results: 10/16/18 05:09 10/16/18 05:09 Impressions: Abdomen X-Ray 10/15/18 19:41 IMPRESSION: Findings consistent with mid to distal small bowel obstruction. Qualifiers - * PATIENT BEING DISCHARGED WITH ANY OF THE FOLLOWING DIAGNOSIS: No VTE patient discharged on overlapping Therapy?: Yes
== END 2018-10-17 16:56 | disposition home or self-care (01) | DRG 390 ==
LOC: ER 17:53 → EH 23:09 → 4S 10-16 02:29
PROVIDERS: ADMIT Internal Medicine; ATTEND Surgery
DX: K56.600 Partial intestinal obstruction, unspecified as to cause (principal); I10 Essential (primary) hypertension; I25.10 Atherosclerotic heart disease of native coronary artery without angina pectoris; M19.90 Unspecified osteoarthritis, unspecified site; I48.2 Chronic atrial fibrillation; R79.1 Abnormal coagulation profile; K21.9 Gastro-esophageal reflux disease without esophagitis; Z79.01 Long term (current) use of anticoagulants; I12.9 Hypertensive chronic kidney disease with stage 1 through stage 4 chronic kidney disease, or unspecified chronic kidney disease; E11.22 Type 2 diabetes mellitus with diabetic chronic kidney disease; N18.3 Chronic kidney disease, stage 3 (moderate); E78.5 Hyperlipidemia, unspecified; Z95.0 Presence of cardiac pacemaker; Z90.49 Acquired absence of other specified parts of digestive tract; Z95.5 Presence of coronary angioplasty implant and graft; Z79.899 Other long term (current) drug therapy; Z82.49 Family history of ischemic heart disease and other diseases of the circulatory system
CPT/HCPCS: 36415; 74019; 74176; 80048; 80053; 81001; 83605; 83690; 83735; 84100; 85025; 85610; 85730; 96361; 96374; 96375; 99285; J2270; J2405; J3490; J7030; S0164

== ENCOUNTER → 2018-10-15 | Outpatient (CLI) | payer MEDICARE, BC ==
--- NOTE | 2018-10-15 16:07 | RADIOLOGY REPORT (SQ) ---
EXAM DESCRIPTION: CT ABD/PELVIS NO ORAL OR IV COMPLETED DATE/TIME: 10/15/2018 3:50 pm REASON FOR STUDY: DIVERTICULITIS OF INTESTINE K57.92 DVTRCLI OF INTEST, PART UNSP, W/O PERF OR ABSC ESS W/O COMPARISON: 12/09/2016 TECHNIQUE: CT scan of the abdomen and pelvis performed without intravenous or oral contrast. Images reviewed with lung, soft tissue, and bone windows. Reconstructed coronal and sagittal MPR images revi ewed. All images stored on PACS. All CT scanners at this facility use dose modulation, iterative reconstruction, and/or weight based d osing when appropriate to reduce radiation dose to as low as reasonably achievable (ALARA). [facility]: Dose Right [facility]: CareDose [facility]: Dose Right [facility]: Teradose 4D [facility]: Sellplex RADIATION DOSE: CT Rad equipment meets quality standard of care and radiation dose reduction techniq ues were employed. CTDIvol: 6.8 mGy. DLP: 347 mGy-cm.mGy. LIMITATIONS: None. FINDINGS: LOWER CHEST: 1.5 CM PLEURAL-BASED NODULE RIGHT LOWER LOBE. NON-CONTRASTED LIVER, SPLEEN, ADRENALS: Evaluation limited by lack of IV contrast. No identified sign ificant masses. PANCREAS: No masses. No peripancreatic inflammatory changes. GALLBLADDER: Surgically absent. RIGHT KIDNEY AND URETER: No suspicious masses. Assessment limited by lack of IV contrast. No signif icant calcifications. No hydronephrosis or hydroureter. LEFT KIDNEY AND URETER: No suspicious masses. Assessment limited by lack of IV contrast. No signifi cant calcifications. No hydronephrosis or hydroureter. AORTA AND RETROPERITONEUM: No aneurysm. No retroperitoneal masses or adenopathy. BOWEL AND PERITONEAL CAVITY: Dilated loop of proximal jejunum left upper quadrant with transition poi nt series 601, image 48 near the midline. 2nd loop of dilated small bowel in the left lower quadrant . Gas and fecal material within nondilated colon. Anastomosis sigmoid colon. Scattered colonic div erticulum without evidence of diverticulitis. No ascites or free air. APPENDIX: Surgically absent. PELVIS, BLADDER, AND ABDOMINAL WALL:No abnormal masses. No free fluid. Bladder normal. BONES: Nothing acute. OTHER: No other significant finding. IMPRESSION: 1. Small bowel ileus pattern. Cannot exclude developing small bowel obstruction. 2. Incidental pulmonary nodule. COMMENT: Quality ID # [id number]: Final reports with documentation of one or more dose reduction techniques (e.g., Automated exposure control, adjustment of the mA and/or kV according to patient size, use of iterative reconstruction technique) TECHNICAL DOCUMENTATION: JOB ID: [id number] [employer]- All Rights Reserved Reading location - IP/workstation name: [email or web address]
== END ==
LOC: RAD 15:26
PROVIDERS: ATTEND Family Medicine Geriatric Medicine
DX: K57.92 Diverticulitis of intestine, part unspecified, without perforation or abscess without bleeding (principal); K56.7 Ileus, unspecified; R91.1 Solitary pulmonary nodule
CPT/HCPCS: 74176

== ENCOUNTER → 2018-10-18 | Outpatient (CLI) | payer MEDICARE, BC ==
[2018-10-18 10:57] LABS: INTERNATIONAL RATION (INR) 2.26
== END ==
LOC: OD 09:33
PROVIDERS: ATTEND Internal Medicine Cardiovascular Disease
DX: I48.2 Chronic atrial fibrillation (principal); R06.02 Shortness of breath; Z79.01 Long term (current) use of anticoagulants
CPT/HCPCS: 36415; 85610

== ENCOUNTER → 2018-10-31 | Outpatient (CLI) | payer MEDICARE ==
[2018-10-31 10:22] LABS: INTERNATIONAL RATION (INR) 3.07; PROTHROMBIN TIME 33.1 SEC (11.4-15.4)
== END ==
LOC: OD 09:10
PROVIDERS: ATTEND Internal Medicine Cardiovascular Disease
DX: I48.2 Chronic atrial fibrillation (principal); R06.02 Shortness of breath; Z79.01 Long term (current) use of anticoagulants
CPT/HCPCS: 36415; 85610

== ENCOUNTER → 2018-11-12 | Outpatient (CLI) | payer MEDICARE, BC ==
[2018-11-12 09:01] LABS: INTERNATIONAL RATION (INR) 1.92; PROTHROMBIN TIME 22.9 SEC (11.4-15.4)
== END ==
LOC: OD 08:06
PROVIDERS: ATTEND Internal Medicine Cardiovascular Disease
DX: I48.2 Chronic atrial fibrillation (principal); R06.02 Shortness of breath; Z79.01 Long term (current) use of anticoagulants
CPT/HCPCS: 36415; 85610

== ENCOUNTER → 2018-11-18 | Outpatient (CLI) | payer MEDICARE, BC ==
--- NOTE | 2018-11-18 12:51 | RADIOLOGY REPORT (SQ) ---
EXAM DESCRIPTION: CT CHEST WITHOUT COMPLETED DATE/TIME: 11/18/2018 9:34 am REASON FOR STUDY: SOLITARY PULM NODULE R91.1 SOLITARY PULMONARY NODULE COMPARISON: 06/28/2018 11/19/2012 TECHNIQUE: CT scan performed of the chest without intravenous contrast. Images reviewed with lung, soft tissue and bone windows. Reconstructed coronal and sagittal MPR images reviewed. All images st ored on PACS. All CT scanners at this facility use dose modulation, iterative reconstruction, and/or weight based d osing when appropriate to reduce radiation dose to as low as reasonably achievable (ALARA). [facility]: Dose Right [facility]: CareDose [facility]: Dose Right [facility]: Teradose 4D [facility]: [employer] RADIATION DOSE: CT Rad equipment meets quality standard of care and radiation dose reduction techniq ues were employed. CTDIvol: 10.4 mGy. DLP: 396 mGy-cm. mGy. LIMITATIONS: No technical limitations. FINDINGS: LUNGS AND PLEURA: Centrilobular emphysematous changes. There is pleural/parenchymal scarr ing in right lower lobe posteriorly. Cannot entirely exclude a 14 x 18 mm nodule. This is not appre ciated on the earlier CT HILAR AND MEDIASTINAL STRUCTURES: There are some nonspecific precarinal nodes. The larger measures a bout 11 mm in short axis. HEART AND VASCULAR STRUCTURES: No aneurysm. No pericardial effusion. Coronary atherosclerosis. UPPER ABDOMEN: No significant findings. Limited exam. THYROID AND OTHER SOFT TISSUES: No masses. No adenopathy. BONES: No significant finding. HARDWARE: None in the chest. OTHER: No other significant findings. IMPRESSION: 1. Pulmonary emphysema. 2. Pleural/ parenchymal scarring in the right lower lobe. Cannot exclude a 14 x 18 mm nodule. Cons ider PET-CT. 3. Coronary atherosclerosis. TECHNICAL DOCUMENTATION: JOB ID: [id number] Quality ID # [id number]: Final reports with documentation of one or more dose reduction techniques (e.g., Au tomated exposure control, adjustment of the mA and/or kV according to patient size, use of iterative reconstruction technique) 2010 [employer]- All Rights Reserved Reading location - IP/workstation name: [email or web address]
== END ==
LOC: RAD 09:30
PROVIDERS: ATTEND Family Medicine Geriatric Medicine
DX: J43.9 Emphysema, unspecified (principal); R91.1 Solitary pulmonary nodule
CPT/HCPCS: 71250

== ENCOUNTER → 2018-11-22 | Outpatient (CLI) | payer MEDICARE, BC ==
[2018-11-22 12:37] LABS: ALANINE AMINOTRANSFERASE 20 U/L (21-72); CHOLESTEROL 150.42 mg/dL (0-200); TRIGLYCERIDES 160 mg/dL (<150)
[2018-11-22 12:48] LABS: DIRECT LDL 76 mg/dL (<100)
[2018-11-23 10:37] LABS: CREATININE URINE 18.9 mg/dL (Not Estab.); MICROALBUMIN URINE 18.7 ug/mL (Not Estab.)
== END ==
LOC: OD 11:40
PROVIDERS: ATTEND Family Medicine Geriatric Medicine
DX: E78.5 Hyperlipidemia, unspecified (principal); E11.8 Type 2 diabetes mellitus with unspecified complications; Z79.899 Other long term (current) drug therapy
CPT/HCPCS: 36415; 80061; 82043; 82570; 84460

== ENCOUNTER → 2018-11-28 | Outpatient (CLI) | payer MEDICARE, BC ==
[2018-11-28 09:29] LABS: INTERNATIONAL RATION (INR) 2.89; PROTHROMBIN TIME 31.6 SEC (11.4-15.4)
== END ==
LOC: OD 08:25
PROVIDERS: ATTEND Internal Medicine Cardiovascular Disease
DX: R06.02 Shortness of breath (principal); I48.2 Chronic atrial fibrillation; Z79.01 Long term (current) use of anticoagulants
CPT/HCPCS: 36415; 85610

== ENCOUNTER → 2018-12-01 | Outpatient (CLI) | payer MEDICARE, BC ==
--- NOTE | 2018-12-02 09:01 | RADIOLOGY REPORT (SQ) ---
EXAM DESCRIPTION: PET CT SKULL/THIGH COMPLETED DATE/TIME: 12/01/2018 8:45 pm REASON FOR STUDY: SOLITARY PULMONARY NODULE R91.1 SOLITARY PULMONARY NODULE J98.4 OTHER DISORDERS OF LUNG COMPARISON: None. Correlation: CT 11/18/2018 chest and 10/15/2018 abdomen pelvis. RADIONUCLIDE AND DOSE: 9.6 mCi F18 FDG The route of agent administration: Intravenous FASTING BLOOD SUGAR: 117 mg/dl CONTRAST TYPE AND DOSE: No CT contrast given. TECHNIQUE: Blood glucose level was verified. Above dose of FDG was injected intravenously. 2-D seg mented attenuation correction images were obtained from the base of the skull to the midthighs. Nonc ontrast CT images were obtained for attenuation correction and fusion with emission images. CT image s were performed without oral or intravenous contrast and are not sensitive for parenchymal lesions. A series of overlapping emission PET images were obtained. Images reviewed and manipulated at [facility] work station by the radiologist. Images stored on PACS. LIMITATIONS: None. FINDINGS: HEAD AND NECK: No areas of abnormal metabolic activity in the soft tissues of the head and neck. CHEST: No areas of abnormal metabolic activity in the chest. ABDOMEN AND PELVIS: No areas of abnormal metabolic activity in the abdomen or pelvis. Expected physi ologic activity is present in the genitourinary system and bowel. PROXIMAL LOWER EXTREMITIES: No areas of abnormal metabolic activity in the soft tissues of the lower extremities. BONES: No abnormal metabolic activity in the visualized skeleton. ADDITIONAL CT FINDINGS: No significant additional finding since 11/18/2018 chest and 10/15/2018 abdomen pelvis. OTHER: Blood pool activity 2.2 SUV, liver 3.1 SUV. IMPRESSION: Non hypermetabolic pleural-based nodule. TECHNICAL DOCUMENTATION: JOB ID: [id number] [employer].- All Rights Reserved Reading location - IP/workstation name: [email or web address]
== END ==
LOC: RAD 14:52
PROVIDERS: ATTEND Family Medicine Geriatric Medicine
DX: R91.1 Solitary pulmonary nodule (principal); J98.4 Other disorders of lung
CPT/HCPCS: 78815; A9552

== ENCOUNTER → 2018-12-12 | Outpatient (CLI) | payer MEDICARE, BC ==
[2018-12-12 09:08] LABS: INTERNATIONAL RATION (INR) 2.29; PROTHROMBIN TIME 26.3 SEC (11.4-15.4)
[2018-12-12 09:33] LABS: ANION GAP 10 (5-19); BLOOD UREA NITROGEN 35 mg/dL (7-20); CALCIUM 10.5 mg/dL (8.4-10.2); CARBON DIOXIDE 30 mmol/L (22-30); CHLORIDE 98 mmol/L (98-107); GLUCOSE 116 mg/dL (75-110); POTASSIUM 4.2 mmol/L (3.6-5.0); SODIUM 137.8 mmol/L (137-145)
== END ==
LOC: OD 08:24
PROVIDERS: ATTEND Internal Medicine Cardiovascular Disease
DX: I48.2 Chronic atrial fibrillation (principal); R06.02 Shortness of breath; Z79.01 Long term (current) use of anticoagulants
CPT/HCPCS: 36415; 80048; 83735; 83880; 85610

== ENCOUNTER → 2018-12-27 | Outpatient (CLI) | payer MEDICARE, BC ==
[2018-12-27 09:38] LABS: INTERNATIONAL RATION (INR) 2.11; PROTHROMBIN TIME 24.7 SEC (11.4-15.4)
[2018-12-27 10:21] LABS: ANION GAP 11 (5-19); BLOOD UREA NITROGEN 41 mg/dL (7-20); CALCIUM 10.6 mg/dL (8.4-10.2); CARBON DIOXIDE 27 mmol/L (22-30); CHLORIDE 102 mmol/L (98-107); GLUCOSE 110 mg/dL (75-110); POTASSIUM 4.9 mmol/L (3.6-5.0); SODIUM 139.7 mmol/L (137-145)
== END ==
LOC: OD 08:21
PROVIDERS: ATTEND Internal Medicine Cardiovascular Disease
DX: E78.5 Hyperlipidemia, unspecified (principal); I50.30 Unspecified diastolic (congestive) heart failure; N18.3 Chronic kidney disease, stage 3 (moderate); I48.2 Chronic atrial fibrillation; R06.02 Shortness of breath; Z79.01 Long term (current) use of anticoagulants; Z79.899 Other long term (current) drug therapy
CPT/HCPCS: 36415; 80048; 83036; 83735; 85610

== ENCOUNTER → 2019-01-11 | Outpatient (CLI) | payer MEDICARE, BC ==
[2019-01-11 09:35] LABS: INTERNATIONAL RATION (INR) 1.34; PROTHROMBIN TIME 17.3 SEC (11.4-15.4)
[2019-01-11 09:39] LABS: ANION GAP 10 (5-19); BLOOD UREA NITROGEN 32 mg/dL (7-20); CARBON DIOXIDE 29 mmol/L (22-30); CHLORIDE 98 mmol/L (98-107); GLUCOSE 108 mg/dL (75-110); POTASSIUM 4.4 mmol/L (3.6-5.0); SODIUM 137.2 mmol/L (137-145)
== END ==
LOC: OD 08:35
PROVIDERS: ATTEND Internal Medicine Cardiovascular Disease
DX: I50.22 Chronic systolic (congestive) heart failure (principal); I48.2 Chronic atrial fibrillation; R06.02 Shortness of breath; Z79.01 Long term (current) use of anticoagulants
CPT/HCPCS: 36415; 80048; 83880; 85610

== ENCOUNTER → 2019-01-15 | Outpatient (CLI) | payer MEDICARE, BC ==
[2019-01-15 09:18] LABS: INTERNATIONAL RATION (INR) 2.19; PROTHROMBIN TIME 25.4 SEC (11.4-15.4)
== END ==
LOC: OD 08:12
PROVIDERS: ATTEND Internal Medicine Cardiovascular Disease
DX: I48.2 Chronic atrial fibrillation (principal); R06.02 Shortness of breath; Z79.01 Long term (current) use of anticoagulants
CPT/HCPCS: 36415; 85610

== ENCOUNTER → 2019-01-31 | Outpatient (CLI) | payer MEDICARE, BC ==
[2019-01-31 09:42] LABS: PROTHROMBIN TIME 19.9 SEC (11.4-15.4)
== END ==
LOC: OD 08:35
PROVIDERS: ATTEND Internal Medicine Cardiovascular Disease
DX: I48.2 Chronic atrial fibrillation (principal); R06.02 Shortness of breath; Z79.01 Long term (current) use of anticoagulants
CPT/HCPCS: 36415; 85610

== ENCOUNTER → 2019-02-12 | Outpatient (CLI) | payer MEDICARE, BC ==
[2019-02-12 09:11] LABS: INTERNATIONAL RATION (INR) 1.67; PROTHROMBIN TIME 20.5 SEC (11.4-15.4)
[2019-02-12 09:25] LABS: ANION GAP 11 (5-19); BLOOD UREA NITROGEN 37 mg/dL (7-20); CALCIUM 10.8 mg/dL (8.4-10.2); CARBON DIOXIDE 33 mmol/L (22-30); CHLORIDE 91 mmol/L (98-107); GLUCOSE 110 mg/dL (75-110); POTASSIUM 5.1 mmol/L (3.6-5.0)
== END ==
LOC: OD 08:17
PROVIDERS: ATTEND Internal Medicine Cardiovascular Disease
DX: R60.9 Edema, unspecified (principal); R06.02 Shortness of breath; Z79.01 Long term (current) use of anticoagulants; I48.2 Chronic atrial fibrillation
CPT/HCPCS: 36415; 80048; 83880; 85610

== ENCOUNTER → 2019-02-26 | Outpatient (CLI) | payer MEDICARE, BC ==
[2019-02-26 09:33] LABS: INTERNATIONAL RATION (INR) 2.96; PROTHROMBIN TIME 32.2 SEC (11.4-15.4)
[2019-02-26 09:47] LABS: ANION GAP 13 (5-19); BLOOD UREA NITROGEN 32 mg/dL (7-20); CALCIUM 10.3 mg/dL (8.4-10.2); CARBON DIOXIDE 31 mmol/L (22-30); CHLORIDE 96 mmol/L (98-107); GLUCOSE 107 mg/dL (75-110); POTASSIUM 4.7 mmol/L (3.6-5.0); SODIUM 139.6 mmol/L (137-145)
== END ==
LOC: OD 08:16
PROVIDERS: ATTEND Internal Medicine Cardiovascular Disease
DX: E87.5 Hyperkalemia (principal); I10 Essential (primary) hypertension; I48.2 Chronic atrial fibrillation; R06.02 Shortness of breath; Z79.01 Long term (current) use of anticoagulants
CPT/HCPCS: 36415; 80048; 85610

== ENCOUNTER → 2019-03-12 | Outpatient (CLI) | payer MEDICARE, BC ==
[2019-03-12 09:27] LABS: INTERNATIONAL RATION (INR) 2.11; PROTHROMBIN TIME 24.6 SEC (11.4-15.4)
== END ==
LOC: OD 08:19
PROVIDERS: ATTEND Internal Medicine Cardiovascular Disease
DX: I48.2 Chronic atrial fibrillation (principal); R06.02 Shortness of breath; Z79.01 Long term (current) use of anticoagulants
CPT/HCPCS: 36415; 85610

== ENCOUNTER → 2019-03-26 | Outpatient (CLI) | payer MEDICARE, BC ==
[2019-03-26 09:41] LABS: INTERNATIONAL RATION (INR) 2.75; PROTHROMBIN TIME 29.6 SEC (11.4-15.4)
== END ==
LOC: OD 08:36
PROVIDERS: ATTEND Internal Medicine Cardiovascular Disease
DX: I48.2 Chronic atrial fibrillation (principal); R06.02 Shortness of breath; Z79.01 Long term (current) use of anticoagulants
CPT/HCPCS: 36415; 85610

== ENCOUNTER → 2019-04-09 | Outpatient (CLI) | payer MEDICARE, BC ==
[2019-04-09 09:37] LABS: INTERNATIONAL RATION (INR) 2.13; PROTHROMBIN TIME 24.2 SEC (11.4-15.4)
== END ==
LOC: OD 08:46
PROVIDERS: ATTEND Internal Medicine Cardiovascular Disease
DX: I48.2 Chronic atrial fibrillation (principal); R06.02 Shortness of breath; Z79.01 Long term (current) use of anticoagulants
CPT/HCPCS: 36415; 85610

== ENCOUNTER → 2019-04-23 | Outpatient (CLI) | payer MEDICARE, BC ==
[2019-04-23 10:38] LABS: INTERNATIONAL RATION (INR) 2.14; PROTHROMBIN TIME 24.2 SEC (11.4-15.4)
== END ==
LOC: OD 09:25
PROVIDERS: ATTEND Internal Medicine Cardiovascular Disease
DX: I48.2 Chronic atrial fibrillation (principal); R06.02 Shortness of breath; Z79.01 Long term (current) use of anticoagulants
CPT/HCPCS: 36415; 85610

== ENCOUNTER → 2019-05-23 | Outpatient (CLI) | payer MEDICARE, BC ==
[2019-05-23 10:16] LABS: INTERNATIONAL RATION (INR) 2.04; PROTHROMBIN TIME 23.4 SEC (11.4-15.4)
[2019-05-23 10:25] LABS: ALBUMIN 4.1 g/dL (3.5-5.0); ALKALINE PHOSPHATASE 112 U/L (38-126); ANION GAP 8 (5-19); ASPARTATE AMINO TRANSFERASE 33 U/L (17-59); BILIRUBIN,DIRECT 0.3 mg/dL (0.0-0.4); BILIRUBIN,TOTAL 1.2 mg/dL (0.2-1.3); BLOOD UREA NITROGEN 28 mg/dL (7-20); CARBON DIOXIDE 31 mmol/L (22-30); CHLORIDE 96 mmol/L (98-107); CHOLESTEROL 114.82 mg/dL (0-200); GLUCOSE 101 mg/dL (75-110); POTASSIUM 4.2 mmol/L (3.6-5.0); TOTAL PROTEIN 7.1 g/dL (6.3-8.2); TRIGLYCERIDES 102 mg/dL (<150)
[2019-05-23 10:35] LABS: DIRECT LDL 60 mg/dL (<100)
== END ==
LOC: OD 09:16
PROVIDERS: ATTEND Internal Medicine Cardiovascular Disease
DX: E78.2 Mixed hyperlipidemia (principal); E87.5 Hyperkalemia; I50.22 Chronic systolic (congestive) heart failure; N18.9 Chronic kidney disease, unspecified; I48.2 Chronic atrial fibrillation; R06.02 Shortness of breath; Z79.01 Long term (current) use of anticoagulants; Z79.899 Other long term (current) drug therapy
CPT/HCPCS: 36415; 80048; 80061; 80076; 83735; 83880; 85610

== ENCOUNTER → 2019-06-07 | Outpatient (CLI) | payer MEDICARE, BC ==
[2019-06-07 10:33] LABS: CHOLESTEROL 118.45 mg/dL (0-200); TRIGLYCERIDES 89 mg/dL (<150)
[2019-06-07 10:36] LABS: INTERNATIONAL RATION (INR) 2.62; PROTHROMBIN TIME 28.5 SEC (11.4-15.4)
[2019-06-07 10:44] LABS: DIRECT LDL 62 mg/dL (<100)
[2019-06-09 03:36] LABS: CREATININE URINE 33.6 mg/dL (Not Estab.); MICROALBUMIN URINE 10.2 ug/mL (Not Estab.)
== END ==
LOC: OD 09:10
PROVIDERS: ATTEND Family Medicine Geriatric Medicine
DX: E11.22 Type 2 diabetes mellitus with diabetic chronic kidney disease (principal); N18.3 Chronic kidney disease, stage 3 (moderate); E78.5 Hyperlipidemia, unspecified; I48.2 Chronic atrial fibrillation; Z79.01 Long term (current) use of anticoagulants; Z79.899 Other long term (current) drug therapy
CPT/HCPCS: 36415; 80061; 82043; 82570; 83036; 84460; 85610

== ENCOUNTER → 2019-06-21 | Outpatient (CLI) | payer MEDICARE, BC | LOC: OD 09:26 | PROVIDERS: ATTEND Internal Medicine Cardiovascular Disease | DX: I48.2 Chronic atrial fibrillation (principal); R06.02 Shortness of breath; Z79.01 Long term (current) use of anticoagulants; Z53.8 Procedure and treatment not carried out for other reasons ==

== ENCOUNTER → 2019-06-24 | Outpatient (CLI) | payer MEDICARE, BC ==
[2019-06-24 10:48] LABS: INTERNATIONAL RATION (INR) 2.99; PROTHROMBIN TIME 31.7 SEC (11.4-15.4)
== END ==
LOC: OD 09:39
PROVIDERS: ATTEND Internal Medicine Cardiovascular Disease
DX: I48.2 Chronic atrial fibrillation (principal); R06.02 Shortness of breath; Z79.01 Long term (current) use of anticoagulants
CPT/HCPCS: 36415; 85610

== ENCOUNTER → 2019-07-03 | Outpatient (CLI) | payer MEDICARE, BC ==
[2019-07-03 09:40] LABS: INTERNATIONAL RATION (INR) 2.34; PROTHROMBIN TIME 26.1 SEC (11.4-15.4)
[2019-07-03 09:41] LABS: ANION GAP 10 (5-19); BLOOD UREA NITROGEN 46 mg/dL (7-20); CARBON DIOXIDE 30 mmol/L (22-30); CHLORIDE 101 mmol/L (98-107); GLUCOSE 108 mg/dL (75-110); POTASSIUM 4.3 mmol/L (3.6-5.0)
== END ==
LOC: OD 08:33
PROVIDERS: ATTEND Physician Assistant
DX: I50.22 Chronic systolic (congestive) heart failure (principal); R60.9 Edema, unspecified; I48.20 Chronic atrial fibrillation, unspecified; R06.02 Shortness of breath; Z79.01 Long term (current) use of anticoagulants
CPT/HCPCS: 36415; 80048; 83880; 85610

== ENCOUNTER → 2019-07-17 | Outpatient (CLI) | payer MEDICARE, BC ==
[2019-07-17 10:07] LABS: INTERNATIONAL RATION (INR) 1.73; PROTHROMBIN TIME 20.5 SEC (11.4-15.4)
[2019-07-17 10:31] LABS: ANION GAP 10 (5-19); BLOOD UREA NITROGEN 47 mg/dL (7-20); CALCIUM 10.2 mg/dL (8.4-10.2); CARBON DIOXIDE 31 mmol/L (22-30); CHLORIDE 98 mmol/L (98-107); GLUCOSE 110 mg/dL (75-110); POTASSIUM 4.8 mmol/L (3.6-5.0)
== END ==
LOC: OD 08:58
PROVIDERS: ATTEND Internal Medicine Cardiovascular Disease
DX: R06.02 Shortness of breath (principal); I13.0 Hypertensive heart and chronic kidney disease with heart failure and stage 1 through stage 4 chronic kidney disease, or unspecified chronic kidney disease; N18.9 Chronic kidney disease, unspecified; I50.22 Chronic systolic (congestive) heart failure; Z79.01 Long term (current) use of anticoagulants; Z79.899 Other long term (current) drug therapy
CPT/HCPCS: 36415; 80048; 83880; 85610

== ENCOUNTER → 2019-07-30 | Outpatient (CLI) | payer MEDICARE, BC ==
[2019-07-30 09:56] LABS: INTERNATIONAL RATION (INR) 2.77; PROTHROMBIN TIME 29.9 SEC (11.4-15.4)
[2019-07-30 10:17] LABS: ANION GAP 12 (5-19); BLOOD UREA NITROGEN 45 mg/dL (7-20); CALCIUM 10.1 mg/dL (8.4-10.2); CARBON DIOXIDE 29 mmol/L (22-30); CHLORIDE 104 mmol/L (98-107); GLUCOSE 101 mg/dL (75-110); POTASSIUM 4.7 mmol/L (3.6-5.0)
== END ==
LOC: OD 09:01
PROVIDERS: ATTEND Physician Assistant
DX: I50.22 Chronic systolic (congestive) heart failure (principal); R06.02 Shortness of breath; N18.9 Chronic kidney disease, unspecified; I48.20 Chronic atrial fibrillation, unspecified; Z79.01 Long term (current) use of anticoagulants; Z79.899 Other long term (current) drug therapy
CPT/HCPCS: 36415; 80048; 83880; 85610

== ENCOUNTER → 2019-08-13 | Outpatient (CLI) | payer MEDICARE, BC ==
[2019-08-13 10:11] LABS: PROTHROMBIN TIME 25.7 SEC (11.4-15.4)
== END ==
LOC: OD 09:12
PROVIDERS: ATTEND Internal Medicine Cardiovascular Disease
DX: I48.20 Chronic atrial fibrillation, unspecified (principal); R06.02 Shortness of breath; Z79.01 Long term (current) use of anticoagulants
CPT/HCPCS: 36415; 85610

== ENCOUNTER → 2019-08-26 | Outpatient (CLI) | payer MEDICARE, BC ==
[2019-08-26 10:16] LABS: INTERNATIONAL RATION (INR) 2.42; PROTHROMBIN TIME 26.8 SEC (11.4-15.4)
== END ==
LOC: OD 09:16
PROVIDERS: ATTEND Internal Medicine Cardiovascular Disease
DX: I48.20 Chronic atrial fibrillation, unspecified (principal); R06.02 Shortness of breath; Z79.01 Long term (current) use of anticoagulants
CPT/HCPCS: 36415; 85610

== ENCOUNTER → 2019-09-22 | Outpatient (CLI) | payer MEDICARE, BC ==
[2019-09-22 09:59] LABS: INTERNATIONAL RATION (INR) 2.13; PROTHROMBIN TIME 24.1 SEC (11.4-15.4)
== END ==
LOC: OD 08:41
PROVIDERS: ATTEND Internal Medicine Cardiovascular Disease
DX: I48.0 Paroxysmal atrial fibrillation (principal); Z79.01 Long term (current) use of anticoagulants
CPT/HCPCS: 36415; 85610

== ENCOUNTER → 2019-10-06 | Outpatient (CLI) | payer MEDICARE, BC ==
[2019-10-06 10:47] LABS: INTERNATIONAL RATION (INR) 1.94; PROTHROMBIN TIME 22.4 SEC (11.4-15.4)
== END ==
LOC: OD 09:07
PROVIDERS: ATTEND Internal Medicine Cardiovascular Disease
DX: I48.20 Chronic atrial fibrillation, unspecified (principal); Z79.01 Long term (current) use of anticoagulants
CPT/HCPCS: 36415; 85610

== ENCOUNTER → 2019-10-20 | Outpatient (CLI) | payer MEDICARE, BC ==
[2019-10-20 09:29] LABS: INTERNATIONAL RATION (INR) 2.23
[2019-10-20 09:56] LABS: ANION GAP 9 (5-19); BLOOD UREA NITROGEN 44 mg/dL (7-20); CALCIUM 10.2 mg/dL (8.4-10.2); CARBON DIOXIDE 31 mmol/L (22-30); CHLORIDE 100 mmol/L (98-107); GLUCOSE 114 mg/dL (75-110); POTASSIUM 4.7 mmol/L (3.6-5.0)
== END ==
LOC: OD 08:20
PROVIDERS: ATTEND Internal Medicine Cardiovascular Disease
DX: I48.0 Paroxysmal atrial fibrillation (principal); R06.02 Shortness of breath; Z79.01 Long term (current) use of anticoagulants
CPT/HCPCS: 36415; 80048; 83880; 85610

== ENCOUNTER → 2019-10-30 | Outpatient (CLI) | payer MEDICARE, BC ==
[2019-10-30 09:37] LABS: INTERNATIONAL RATION (INR) 2.03; PROTHROMBIN TIME 23.3 SEC (11.4-15.4)
== END ==
LOC: OD 08:33
PROVIDERS: ATTEND Internal Medicine Cardiovascular Disease
DX: I48.20 Chronic atrial fibrillation, unspecified (principal); Z79.01 Long term (current) use of anticoagulants
CPT/HCPCS: 36415; 85610

== ENCOUNTER → 2019-11-17 | Outpatient (CLI) | payer MEDICARE, BC ==
[2019-11-17 09:36] LABS: INTERNATIONAL RATION (INR) 2.09; PROTHROMBIN TIME 23.8 SEC (11.4-15.4)
[2019-11-17 10:00] LABS: ANION GAP 8 (5-19); BLOOD UREA NITROGEN 36 mg/dL (7-20); CALCIUM 9.7 mg/dL (8.4-10.2); CARBON DIOXIDE 30 mmol/L (22-30); CHLORIDE 102 mmol/L (98-107); GLUCOSE 99 mg/dL (75-110); POTASSIUM 4.3 mmol/L (3.6-5.0)
== END ==
LOC: OD 08:34
PROVIDERS: ATTEND Physician Assistant
DX: I11.0 Hypertensive heart disease with heart failure (principal); I50.22 Chronic systolic (congestive) heart failure; R73.01 Impaired fasting glucose; Z79.899 Other long term (current) drug therapy; Z79.01 Long term (current) use of anticoagulants
CPT/HCPCS: 36415; 80048; 83036; 83880; 85610

== ENCOUNTER → 2019-12-02 | Outpatient (CLI) | payer MEDICARE, BC ==
[2019-12-02 09:30] LABS: PROTHROMBIN TIME 26.6 SEC (11.4-15.4)
[2019-12-02 09:53] LABS: ANION GAP 9 (5-19); BLOOD UREA NITROGEN 38 mg/dL (7-20); CALCIUM 9.9 mg/dL (8.4-10.2); CARBON DIOXIDE 31 mmol/L (22-30); CHLORIDE 100 mmol/L (98-107); GLUCOSE 98 mg/dL (75-110); POTASSIUM 4.6 mmol/L (3.6-5.0)
[2019-12-02 10:06] LABS: ANION GAP 9 (5-19); BLOOD UREA NITROGEN 38 mg/dL (7-20); CALCIUM 9.9 mg/dL (8.4-10.2); CARBON DIOXIDE 31 mmol/L (22-30); CHLORIDE 100 mmol/L (98-107); GLUCOSE 98 mg/dL (75-110); POTASSIUM 4.6 mmol/L (3.6-5.0)
[2019-12-02 10:07] LABS: ALKALINE PHOSPHATASE 112 U/L (38-126); ASPARTATE AMINO TRANSFERASE 29 U/L (17-59); BILIRUBIN,TOTAL 0.8 mg/dL (0.2-1.3); TOTAL PROTEIN 7.6 g/dL (6.3-8.2)
[2019-12-02 11:10] LABS: DIRECT LDL 61 mg/dL (<100)
[2019-12-02 11:39] LABS: CHOLESTEROL 120.76 mg/dL (0-200); TRIGLYCERIDES 123 mg/dL (<150); VLDL CHOLESTEROL 24.6 mg/dL (10-31)
[2019-12-03 11:37] LABS: MICROALBUMIN URINE 12.6 ug/mL (Not Estab.)
== END ==
LOC: OD 08:28
PROVIDERS: ATTEND Internal Medicine Cardiovascular Disease
DX: I50.22 Chronic systolic (congestive) heart failure (principal); R06.02 Shortness of breath; E78.2 Mixed hyperlipidemia; E11.22 Type 2 diabetes mellitus with diabetic chronic kidney disease; E11.21 Type 2 diabetes mellitus with diabetic nephropathy; N18.3 Chronic kidney disease, stage 3 (moderate); Z79.01 Long term (current) use of anticoagulants; Z79.899 Other long term (current) drug therapy
CPT/HCPCS: 36415; 80048; 80061; 80076; 82043; 82570; 83036; 83880; 84460; 85610

== ENCOUNTER → 2019-12-19 | Outpatient (CLI) | payer MEDICARE, BC ==
[2019-12-19 09:21] LABS: INTERNATIONAL RATION (INR) 2.65; PROTHROMBIN TIME 28.8 SEC (11.4-15.4)
[2019-12-19 09:33] LABS: ANION GAP 9 (5-19); BLOOD UREA NITROGEN 36 mg/dL (7-20); CALCIUM 9.5 mg/dL (8.4-10.2); CARBON DIOXIDE 28 mmol/L (22-30); CHLORIDE 104 mmol/L (98-107); GLUCOSE 101 mg/dL (75-110); POTASSIUM 4.3 mmol/L (3.6-5.0)
== END ==
LOC: OD 08:09
PROVIDERS: ATTEND Internal Medicine Cardiovascular Disease
DX: I11.0 Hypertensive heart disease with heart failure (principal); I50.22 Chronic systolic (congestive) heart failure; E83.42 Hypomagnesemia; Z79.01 Long term (current) use of anticoagulants; Z79.899 Other long term (current) drug therapy
CPT/HCPCS: 36415; 80048; 83735; 83880; 85610

== ENCOUNTER → 2020-01-19 | Outpatient (CLI) | payer MEDICARE, BC ==
[2020-01-19 09:39] LABS: INTERNATIONAL RATION (INR) 1.96; PROTHROMBIN TIME 22.6 SEC (11.4-15.4)
[2020-01-19 09:53] LABS: ANION GAP 6 (5-19); BLOOD UREA NITROGEN 52 mg/dL (7-20); CARBON DIOXIDE 31 mmol/L (22-30); CHLORIDE 101 mmol/L (98-107); CHOLESTEROL 112.81 mg/dL (0-200); GLUCOSE 115 mg/dL (75-110); POTASSIUM 4.6 mmol/L (3.6-5.0); TRIGLYCERIDES 119 mg/dL (<150)
[2020-01-19 09:56] LABS: ANION GAP 7 (5-19); BLOOD UREA NITROGEN 53 mg/dL (7-20); CARBON DIOXIDE 30 mmol/L (22-30); CHLORIDE 102 mmol/L (98-107); GLUCOSE 117 mg/dL (75-110); POTASSIUM 4.6 mmol/L (3.6-5.0)
[2020-01-19 10:04] LABS: DIRECT LDL 59 mg/dL (<100)
== END ==
LOC: OD 08:39
PROVIDERS: ATTEND Internal Medicine Cardiovascular Disease
DX: I48.20 Chronic atrial fibrillation, unspecified (principal); I11.0 Hypertensive heart disease with heart failure; I50.22 Chronic systolic (congestive) heart failure; E83.42 Hypomagnesemia; E78.5 Hyperlipidemia, unspecified; Z79.899 Other long term (current) drug therapy; Z79.01 Long term (current) use of anticoagulants
CPT/HCPCS: 36415; 80048; 80061; 83735; 83880; 84460; 85610

== ENCOUNTER → 2020-02-06 | Outpatient (CLI) | payer MEDICARE, BC ==
[2020-02-06 09:16] LABS: INTERNATIONAL RATION (INR) 2.01; PROTHROMBIN TIME 23.1 SEC (11.4-15.4)
[2020-02-06 09:24] LABS: ALBUMIN 3.9 g/dL (3.5-5.0); ALKALINE PHOSPHATASE 117 U/L (38-126); ANION GAP 6 (5-19); ASPARTATE AMINO TRANSFERASE 29 U/L (17-59); BILIRUBIN,TOTAL 1.1 mg/dL (0.2-1.3); BLOOD UREA NITROGEN 34 mg/dL (7-20); CALCIUM 9.6 mg/dL (8.4-10.2); CARBON DIOXIDE 33 mmol/L (22-30); CHLORIDE 98 mmol/L (98-107); CHOLESTEROL 110.73 mg/dL (0-200); GLUCOSE 107 mg/dL (75-110); POTASSIUM 4.3 mmol/L (3.6-5.0); TOTAL PROTEIN 7.4 g/dL (6.3-8.2); TRIGLYCERIDES 100 mg/dL (<150)
[2020-02-06 09:34] LABS: DIRECT LDL 63 mg/dL (<100)
== END ==
LOC: OD 08:29
PROVIDERS: ATTEND Physician Assistant
DX: I11.0 Hypertensive heart disease with heart failure (principal); I50.22 Chronic systolic (congestive) heart failure; E78.2 Mixed hyperlipidemia; Z79.01 Long term (current) use of anticoagulants; Z79.899 Other long term (current) drug therapy
CPT/HCPCS: 36415; 80048; 80061; 80076; 83880; 85610

== ENCOUNTER → 2020-02-24 | Outpatient (CLI) | payer MEDICARE, BC ==
[2020-02-24 09:41] LABS: INTERNATIONAL RATION (INR) 1.72; PROTHROMBIN TIME 20.4 SEC (11.4-15.4)
[2020-02-24 09:44] LABS: ANION GAP 7 (5-19); BLOOD UREA NITROGEN 45 mg/dL (7-20); CALCIUM 9.9 mg/dL (8.4-10.2); CARBON DIOXIDE 32 mmol/L (22-30); CHLORIDE 98 mmol/L (98-107); GLUCOSE 111 mg/dL (75-110); POTASSIUM 4.7 mmol/L (3.6-5.0)
== END ==
LOC: OD 08:23
PROVIDERS: ATTEND Internal Medicine Cardiovascular Disease
DX: I11.0 Hypertensive heart disease with heart failure (principal); I50.22 Chronic systolic (congestive) heart failure; R06.02 Shortness of breath; Z79.01 Long term (current) use of anticoagulants; I48.20 Chronic atrial fibrillation, unspecified
CPT/HCPCS: 36415; 80048; 83880; 85610

== ENCOUNTER → 2020-03-08 | Outpatient (CLI) | payer MEDICARE, BC ==
[2020-03-08 09:05] LABS: INTERNATIONAL RATION (INR) 1.71; PROTHROMBIN TIME 20.2 SEC (11.4-15.4)
== END ==
LOC: OD 08:01
PROVIDERS: ATTEND Internal Medicine Cardiovascular Disease
DX: I48.20 Chronic atrial fibrillation, unspecified (principal); Z79.01 Long term (current) use of anticoagulants
CPT/HCPCS: 36415; 85610

== ENCOUNTER → 2020-03-15 | Outpatient (CLI) | payer MEDICARE, BC ==
[2020-03-15 08:35] LABS: INTERNATIONAL RATION (INR) 2.22
== END ==
LOC: OD 07:29
PROVIDERS: ATTEND Internal Medicine Cardiovascular Disease
DX: I48.20 Chronic atrial fibrillation, unspecified (principal); Z79.01 Long term (current) use of anticoagulants
CPT/HCPCS: 36415; 85610

== ENCOUNTER → 2020-03-29 | Outpatient (CLI) | payer MEDICARE, BC ==
[2020-03-29 08:32] LABS: INTERNATIONAL RATION (INR) 2.58; PROTHROMBIN TIME 28.2 SEC (11.4-15.4)
[2020-03-29 08:50] LABS: ANION GAP 9 (5-19); BLOOD UREA NITROGEN 53 mg/dL (7-20); CALCIUM 10.1 mg/dL (8.4-10.2); CARBON DIOXIDE 34 mmol/L (22-30); CHLORIDE 94 mmol/L (98-107); GLUCOSE 124 mg/dL (75-110); POTASSIUM 4.2 mmol/L (3.6-5.0)
== END ==
LOC: OD 07:29
PROVIDERS: ATTEND Physician Assistant
DX: I11.0 Hypertensive heart disease with heart failure (principal); I50.22 Chronic systolic (congestive) heart failure; Z79.01 Long term (current) use of anticoagulants; Z79.899 Other long term (current) drug therapy
CPT/HCPCS: 36415; 80048; 83880; 85610

== ENCOUNTER → 2020-04-26 | Outpatient (CLI) | payer MEDICARE, BC ==
[2020-04-26 08:59] LABS: INTERNATIONAL RATION (INR) 2.83; PROTHROMBIN TIME 30.3 SEC (11.4-15.4)
== END ==
LOC: OD 07:56
PROVIDERS: ATTEND Internal Medicine Cardiovascular Disease
DX: I48.20 Chronic atrial fibrillation, unspecified (principal); Z79.01 Long term (current) use of anticoagulants
CPT/HCPCS: 36415; 85610

== ENCOUNTER → 2020-05-10 | Outpatient (CLI) | payer MEDICARE, BC ==
[2020-05-10 08:48] LABS: INTERNATIONAL RATION (INR) 1.55; PROTHROMBIN TIME 18.7 SEC (11.4-15.4)
== END ==
LOC: OD 07:37
PROVIDERS: ATTEND Physician Assistant
DX: I48.20 Chronic atrial fibrillation, unspecified (principal); Z79.01 Long term (current) use of anticoagulants; Z79.899 Other long term (current) drug therapy
CPT/HCPCS: 36415; 85610

== ENCOUNTER → 2020-05-22 | Outpatient (CLI) | payer MEDICARE, BC ==
[2020-05-22 09:32] LABS: HEMATOCRIT 41.8 % (37.9-51.0); HEMOGLOBIN 14.7 g/dL (13.5-17.0); MEAN CORPUSCULAR HEMOGLOBIN 32.9 pg (27.0-33.4); MEAN CORPUSCULAR HGB CONC 35.2 g/dL (32.0-36.0); MEAN CORPUSCULAR VOLUME 94 fl (80-97); PLATELET COUNT 305 10^3/uL (150-450); RED BLOOD COUNT 4.47 10^6/uL (4.35-5.55); RED CELL DISTRIBUTION WIDTH 13.4 % (11.5-14.0); WHITE BLOOD COUNT 14.4 10^3/uL (4.0-10.5)
[2020-05-22 09:32] LABS: APPEARANCE,URINE CLEAR; BILIRUBIN,URINE NEGATIVE (NEGATIVE); COLOR,URINE YELLOW; GLUCOSE, URINE NEGATIVE (NEGATIVE); KETONES,URINE NEGATIVE (NEGATIVE); LEUKOCYTE ESTERASE,URINE NEGATIVE (NEGATIVE); NITRITE,URINE NEGATIVE (NEGATIVE); PROTEIN,URINE NEGATIVE (NEGATIVE); URINE SPECIFIC GRAVITY 1.014; UROBILINOGEN,URINE NEGATIVE mg/dL (<2.0)
[2020-05-22 09:49] LABS: ALBUMIN 3.7 g/dL (3.5-5.0); ALKALINE PHOSPHATASE 142 U/L (38-126); ANION GAP 8 (5-19); ASPARTATE AMINO TRANSFERASE 42 U/L (17-59); BILIRUBIN,DIRECT 0.4 mg/dL (0.0-0.4); BILIRUBIN,TOTAL 0.9 mg/dL (0.2-1.3); BLOOD UREA NITROGEN 52 mg/dL (7-20); CALCIUM 9.5 mg/dL (8.4-10.2); CARBON DIOXIDE 32 mmol/L (22-30); CHLORIDE 90 mmol/L (98-107); GLUCOSE 104 mg/dL (75-110); POTASSIUM 3.9 mmol/L (3.6-5.0)
== END ==
LOC: OD 08:03
PROVIDERS: ATTEND Physician Assistant
DX: I48.20 Chronic atrial fibrillation, unspecified (principal); Z79.01 Long term (current) use of anticoagulants; Z79.899 Other long term (current) drug therapy
CPT/HCPCS: 36415; 80048; 80076; 81001; 82272; 85027; 85730

== ENCOUNTER → 2020-05-28 | Outpatient (CLI) | payer MEDICARE, BC ==
[2020-05-28 08:40] LABS: INTERNATIONAL RATION (INR) 1.54; PROTHROMBIN TIME 18.6 SEC (11.4-15.4)
== END ==
LOC: OD 07:33
PROVIDERS: ATTEND Internal Medicine Cardiovascular Disease
DX: I48.20 Chronic atrial fibrillation, unspecified (principal); Z79.01 Long term (current) use of anticoagulants
CPT/HCPCS: 36415; 85610

== ENCOUNTER → 2020-06-24 | Outpatient (CLI) | payer MEDICARE, BC ==
[2020-06-24 09:43] LABS: ANION GAP 9 (5-19); BLOOD UREA NITROGEN 23 mg/dL (7-20); CALCIUM 8.9 mg/dL (8.4-10.2); CARBON DIOXIDE 31 mmol/L (22-30); CHLORIDE 95 mmol/L (98-107); GLUCOSE 105 mg/dL (75-110); POTASSIUM 3.6 mmol/L (3.6-5.0)
== END ==
LOC: OD 08:06
PROVIDERS: ATTEND Physician Assistant
DX: I48.20 Chronic atrial fibrillation, unspecified (principal); Z79.01 Long term (current) use of anticoagulants; Z79.899 Other long term (current) drug therapy
CPT/HCPCS: 36415; 80048

== ENCOUNTER → 2020-07-26 | Outpatient (CLI) | payer MEDICARE, BC ==
--- NOTE | 2020-07-26 09:15 | RADIOLOGY REPORT (SQ) ---
EXAM DESCRIPTION: CHEST 2 VIEWS IMAGES COMPLETED DATE/TIME: 07/26/2020 9:04 am REASON FOR STUDY: ABD PAIN/WEIGHT LOSS COMPARISON: 05/14/2020 EXAM PARAMETERS: NUMBER OF VIEWS: two views TECHNIQUE: Digital Frontal and Lateral radiographic views of the chest acquired. RADIATION DOSE: NA LIMITATIONS: none FINDINGS: LUNGS AND PLEURA: Focal airspace disease in the right base new from prior study. Mild hyp erexpansion is again noted. There is a small right pleural effusion. MEDIASTINUM AND HILAR STRUCTURES: No masses or contour abnormalities. HEART AND VASCULAR STRUCTURES: Unchanged in appearance. BONES: No acute findings. HARDWARE: Battery pack and lead are in place. OTHER: No other significant finding. IMPRESSION: Right lower lobe airspace disease along with small right effusion. This could represent atelectasis or pneumonia. TECHNICAL DOCUMENTATION: JOB ID: [id number] 2010 [employer]- All Rights Reserved Reading location - IP/workstation name: [email or web address]
--- NOTE | 2020-07-26 09:17 | RADIOLOGY REPORT (SQ) ---
EXAM DESCRIPTION: ACUTE ABDOMEN SERIES IMAGES COMPLETED DATE/TIME: 07/26/2020 9:04 am REASON FOR STUDY: ABD PAIN/WEIGHT LOSS R10.9 UNSPECIFIED ABDOMINAL PAIN COMPARISON: 08/15/2019 NUMBER OF VIEWS: Two views. TECHNIQUE: Supine and erect/decubitus radiographic images of the abdomen acquired. LIMITATIONS: None. FINDINGS: FREE AIR: None. No abnormal gas collections. LUNG BASES: Clear. BOWEL GAS PATTERN: Mild gastric distention. There is large amount of stool throughout the colon. No evidence of mechanical obstruction. CALCIFICATIONS: No suspicious calcifications. SOFT TISSUES: No gross mass or suggestion of organomegaly. HARDWARE: Surgical clips in the right upper quadrant consistent prior cholecystectomy. There are balwinder gical clips in the left mid abdomen and left lower quadrant. BONES: No acute fracture. No worrisome bone lesions. OTHER: No other significant finding. IMPRESSION: 1. Moderate constipation. 2. Mild gastric distention. No evidence of mechanical obstruction. 3. Prior cholecystectomy. TECHNICAL DOCUMENTATION: JOB ID: [id number] 2010 [employer]- All Rights Reserved Reading location - IP/workstation name: [email or web address]
--- NOTE | 2020-07-26 10:37 | RADIOLOGY REPORT (SQ) ---
EXAM DESCRIPTION: U/S ABDOMEN COMPLETE W/DOPPLER IMAGES COMPLETED DATE/TIME: 07/26/2020 10:05 am REASON FOR STUDY: ABD PAIN R10.9 UNSPECIFIED ABDOMINAL PAIN COMPARISON: CT chest dated 05/14/2020 TECHNIQUE: Dynamic and static grayscale images acquired of the abdomen and recorded on PACS. Additio nal selected color Doppler and spectral images recorded. Note: Study does not meet criteria for complete doppler/duplex scan LIMITATIONS: None. FINDINGS: PANCREAS: The pancreas is obscured by overlying bowel gas. LIVER: The liver is heterogeneous in echotexture. Contour is nodular. This may represent cirrhosis. There is perihepatic fluid. LIVER VASCULATURE: Normal directional flow of the main portal vein and hepatic veins. GALLBLADDER: Surgically absent. ULTRASOUND-DETECTED HUNTER'S SIGN: Not applicable. INTRAHEPATIC DUCTS AND COMMON DUCT: CBD and intrahepatic ducts normal caliber. No filling defects. INFERIOR VENA CAVA: Normal flow. AORTA: No aneurysm. RIGHT KIDNEY: Normal size. Normal echogenicity. Hypoechoic 2 cm lesion in the right kidney off t he inferior pole. This lies anterior location. Prior CT demonstrated this to represent a simple cys t. No hydronephrosis. No calcifications. LEFT KIDNEY: Normal size. Normal echogenicity. Simple left renal cyst is noted measuring 2.7 x 2 .0 x 1.8 cm. No hydronephrosis. No calcifications. SPLEEN: The spleen measures 15.5 cm in length. There is a complex area of mixed echogenicity along t he splenic hilum. This is avascular. On ultrasound is difficult to determine whether this is within the spleen or adjacent to the spleen. Recommend a dedicated CT of the abdomen with contrast for fur ther assessment. Splenic lesion or peritoneal mass or possibilities. PERITONEAL AND PLEURAL SPACES: Moderate ascites. OTHER: No other significant finding. IMPRESSION: 1. Moderate ascites with heterogeneous echogenicity throughout the liver consistent wit h cirrhosis. 2. Complex area adjacent to or possibly within the splenic parenchyma. This is near the hilum. Rec ommended dedicated CT abdomen with contrast for further assessment. TECHNICAL DOCUMENTATION: JOB ID: [id number] 2010 [employer]- All Rights Reserved Reading location - IP/workstation name: [email or web address]
== END ==
LOC: RAD 09:04
PROVIDERS: ATTEND Family Medicine Geriatric Medicine
DX: K74.60 Unspecified cirrhosis of liver (principal); N28.1 Cyst of kidney, acquired; R18.8 Other ascites; R10.9 Unspecified abdominal pain; R63.4 Abnormal weight loss
CPT/HCPCS: 71046; 74022; 76700; 93976

== ENCOUNTER → 2020-07-27 | Outpatient (CLI) | payer MEDICARE, BC ==
--- NOTE | 2020-07-27 10:29 | RADIOLOGY REPORT (SQ) ---
EXAM DESCRIPTION: CT ABD/PELVIS NO ORAL OR IV IMAGES COMPLETED DATE/TIME: 07/27/2020 9:03 am REASON FOR STUDY: R10.9 UNSPECIFIED ABDOMINAL PAIN R93.89 ABNORMAL FINDINGS ON DX IMAGING OF OTH JONNY DY STRUCTURE R10.9 UNSPECIFIED ABDOMINAL PAIN COMPARISON: PET-CT 12/01/2018 Abdominal ultrasound 07/26/2020 CT abdomen pelvis 10/15/2018 PET-CT 12/01/2018 CT abdomen pelvis 10/15/2018, 12/09/2016 KUB 07/26/2020 CT chest 05/14/2020 TECHNIQUE: CT scan of the abdomen and pelvis performed without intravenous or oral contrast. Images reviewed with lung, soft tissue, and bone windows. Reconstructed coronal and sagittal MPR images revi ewed. All images stored on PACS. All CT scanners at this facility use dose modulation, iterative reconstruction, and/or weight based d osing when appropriate to reduce radiation dose to as low as reasonably achievable (ALARA). [facility]: Dose Right [facility]: CareDose [facility]: Dose Right [facility]: Teradose 4D [facility]: [employer] RADIATION DOSE: CT Rad equipment meets quality standard of care and radiation dose reduction techniq ues were employed. CTDIvol: 7.6 mGy. DLP: 405 mGy-cm.mGy. LIMITATIONS: None. FINDINGS: LOWER CHEST: Trace left pleural effusion there is bibasilar pulmonary fibrosis with thicke alvaro interlobular septa. Calcified coronary arteries and aortic valve NON-CONTRASTED LIVER, SPLEEN, ADRENALS: Non contrasted images of liver are unremarkable. No splenome emir. Right adrenal gland unremarkable. Diffuse nodular enlargement of the left adrenal gland. Dif fuse enlargement of the left adrenal gland, new compared to prior studies, 3.4 by 3 cm in size. Smal l 1 to 2 cm soft tissue nodules are present along the ventral aspect of the spleen. These may repres ent peritoneal malignant deposits. PANCREAS: No masses. No peripancreatic inflammatory changes. GALLBLADDER: Surgically absent RIGHT KIDNEY AND URETER: No suspicious masses. Assessment limited by lack of IV contrast. 1.5 cm cys t right lower pole kidney. No significant calcifications. No hydronephrosis or hydroureter. LEFT KIDNEY AND URETER: There is a 4 x 3.3 cm mass along the left upper pole kidney. This could eith er represent a primary renal mass or could represent metastatic disease given multiple nodules in the left upper quadrant along the left adrenal gland and ventral margin of the spleen. Multiple left re nal cysts are present. No significant calcifications. No hydronephrosis or hydroureter. AORTA AND RETROPERITONEUM: No aneurysm. No retroperitoneal masses or adenopathy. BOWEL AND PERITONEAL CAVITY: There is moderate ascites throughout the abdomen and pelvis. Multiple s oft tissue nodules in the left upper quadrant raise a question of peritoneal implants/ malignant asci adam. Post partial sigmoid colectomy with anastomotic rachel axial images 68. No bowel obstruction. No f ree air. Scattered colonic diverticulosis without gross signs of acute diverticulitis APPENDIX: Not identified PELVIS, BLADDER, AND ABDOMINAL WALL:No abnormal masses. No free fluid. Bladder normal. BONES: No significant findings. OTHER: No other significant finding. IMPRESSION: Since the prior CT exam 10/15/2018, patient developed moderate ascites. There are soft t issue density small nodules along the ventral aspect of the spleen, along the left adrenal gland, wit h 4 x 3.3 cm mass left upper pole kidney. Question malignant ascites with peritoneal implants in a l eft upper quadrant. Alternatively, the primary left renal mass with adrenal involvement possible imp lants along the spleen. Follow-up CT with IV contrast to evaluate the left upper pole kidney recomme nded if possible. COMMENT: Quality ID # 436: Final reports with documentation of one or more dose reduction techniques (e.g., Automated exposure control, adjustment of the mA and/or kV according to patient size, use of iterative reconstruction technique) TECHNICAL DOCUMENTATION: JOB ID: [id number] 2010 [employer]- All Rights Reserved Reading location - IP/workstation name: [email or web address]
== END ==
LOC: RAD 08:46
PROVIDERS: ATTEND Family Medicine Geriatric Medicine
DX: R93.89 Abnormal findings on diagnostic imaging of other specified body structures (principal); R10.9 Unspecified abdominal pain
CPT/HCPCS: 74176

== ENCOUNTER 2020-08-02 07:38 | Day surgery (SDC) | payer MEDICARE, BC ==
[2020-08-02 08:30] LABS: HEMATOCRIT 37.9 % (37.9-51.0); HEMOGLOBIN 13.3 g/dL (13.5-17.0); MEAN CORPUSCULAR HEMOGLOBIN 31.9 pg (27.0-33.4); MEAN CORPUSCULAR HGB CONC 35.2 g/dL (32.0-36.0); MEAN CORPUSCULAR VOLUME 91 fl (80-97); PLATELET COUNT 170 10^3/uL (150-450); RED BLOOD COUNT 4.18 10^6/uL (4.35-5.55); RED CELL DISTRIBUTION WIDTH 15.4 % (11.5-14.0); WHITE BLOOD COUNT 10.6 10^3/uL (4.0-10.5)
[2020-08-02 08:36] LABS: INTERNATIONAL RATION (INR) 0.94; PROTHROMBIN TIME 12.8 SEC (11.4-15.4)
[2020-08-02 08:37] LABS: PARTIAL THROMBOPLASTIN TIME 29.6 SEC (23.5-35.8)
[2020-08-02 08:54] LABS: BLOOD UREA NITROGEN 71 mg/dL (7-20)
[2020-08-02 12:25] VITALS: BP 103/49
[2020-08-02 14:06] LABS: FLUID VISCOSITY SLIGHTLY VISCOUS
[2020-08-02 14:07] LABS: FLUID APPEARANCE CLOUDY; FLUID COLOR YELLOW; FLUID SOURCE ABDOMEN
[2020-08-02 14:08] LABS: FLUID TYPE PERITONEAL
--- NOTE | 2020-08-02 16:53 | RADIOLOGY REPORT (SQ) ---
EXAM DESCRIPTION: U/S ABD PARACENTESIS IMAGES COMPLETED DATE/TIME: 08/02/2020 11:27 am REASON FOR STUDY: ASCITES COMPARISON None. LIMITATIONS: None. PROCEDURE: After obtaining informed consent, the patient was brought to the ultrasound suite. The p rocedure was performed with the patient on a gurney. Ultrasound was used to identify a prominent poc ket of ascites in the left lower quadrant. An appropriate access site was selected. The patient was prepped and draped in usual sterile fashion. The access site was anesthetized with 6 mL 1% lidocai ne. A [id number] needle was advanced into the fluid. After aspiration of fluid the needle, the catheter was advanced off the needle into the fluid. A total of 2,900 mL of ed colored fluid was removed. The patient tolerated the procedure well left the department in satisfactory condition. IMPRESSION: Successful ultrasound-guided paracentesis COMMENT: Patient medication list reviewed: Yes- Quality ID# [id number]:Eligible professional attests to doc umenting in the medical record they obtained, updated, or reviewed the patient's current medications. TECHNICAL DOCUMENTATION: JOB ID: [id number] 2010 [employer]- All Rights Reserved Reading location - IP/workstation name: [email or web address]
== END 2020-08-02 12:00 | disposition home or self-care (01) ==
LOC: RAD 07:38
PROVIDERS: ATTEND Internal Medicine
DX: C22.9 Malignant neoplasm of liver, not specified as primary or secondary (principal); R18.0 Malignant ascites; D64.9 Anemia, unspecified; Z79.01 Long term (current) use of anticoagulants
CPT/HCPCS: 36415; 49083; 82565; 83615; 84157; 84520; 85027; 85610; 85730; 87070; 87075; 87205; 89050